=== PATIENT | male | born 1950 | race Caucasian/White ===

== ENCOUNTER 2019-02-11 14:20 | Inpatient (IN) | payer BC ==
--- NOTE | 2019-02-11 14:41 | PDOC ---
Attending Attestation - Resident Resident Name: DeborahKateryna - ED Attending Attestation I have performed the following: I have examined & evaluated the patient, The case was reviewed & discussed with the resident, I agree w/resident's findings & plan, Exceptions are as noted - HPI HPI: 02/11/19 15:09 68y M hx of copd, on methadone, POTS presenst with cough, was noted to be sob by who called EMS. EMS notes pt was hypoxic to the 70s and was started on a NRB. pt notes he has been coughing for the past few weeks productive of whitish sputum, denies any fever/chills, leg swelling, abd pain, chest pain. pt is a poor historian, says he 'triest to stay away from doctor'. Exam: GENERAL: The patient is awake, alert, and fully oriented, in moderate respiratory distress HEAD: Normocephalic, atraumatic. EYES: extraocular movements intact, sclera anicteric, conjunctiva clear. ENT: Normal voice, Moist mucous membranes. NECK: Normal range of motion, supple LUNGS: rales at l base, moderate respiratory distres, tachypneic HEART: tachycardic ABDOMEN: Soft, nontender, No guarding, no rebound. No CVA tenderness EXTREMITIES: Normal range of motion, +bl edema on LE NEUROLOGICAL: No facial assymetry, Normal speech, moving all 4 ext spontaneously and symmetrically PSYCH: Normal mood, normal affect. SKIN: Warm, Dry, normal turgor, - Physicial Exam PE: 02/13/19 08:24 see above - Critical Care Time Total Critical Care Time: 45 Critical Care Statement: The care of this patient involved high complexity decision making to prevent further life threatening deterioration of the patient 's condition and/or to evaluate & treat vital organ system(s) failure or risk of failure. - Medical Decision Making ddx - likely pna - sepsis orderset obtained 02/11/19 16:57 Patient's blood work reviewed noted for significant leukocytosis blood gases consistent with respiratory acidosis, likely secondary to COPD exacerbation with pneumonia Lactic acid also significant elevated 7.5 will give duoneb, bipap Heart Score/ECG Review - ECG Impressions Comment:: 02/11/19 18:53 Twelve-lead EKG was performed and reviewed by me. There is normal sinus rhythm with a rate of 107 Occasional PVCs noted Impression sinus tachycardia
--- NOTE | 2019-02-11 15:57 | PDOC ---
History of Present Illness - General Chief Complaint: Shortness of Breath Stated Complaint: SHORTNESS OF BREATH Time Seen by Provider: 02/11/19 14:57 - History of Present Illness Initial Comments: Serge Green is a 68yo man with a PMH of postural orthostatic tachycardia syndrome, "mild COPD" and current smoking who was BIBA with report of hypoxia to the 70's. Mr Green reports that his thought he "didn't look too good" at home and endorses having a "cold" with a cough for several weeks. He states that he always coughs in the morning, however, and does not give detailed information on how the current cough is different. He denies fever, chills, chest pain, difficulty breathing, poor appetite, change in bowel habits, or other recent symptoms. He states that he smokes "a little bit" currently. Mr Green is a poor historian and does not provide additional information; family is currently not in the ED. Past History - Past Medical History Allergies/Adverse Reactions: Allergies Allergy/AdvReac Type Severity Reaction Status Date / Time No Known Allergies Allergy Verified 02/11/19 14:54 COPD: No HTN: Yes (dysautonomia) - Psycho Social/Smoking Cessation Hx Smoking History: Never smoked Have you smoked in the past 12 months: No Information on smoking cessation initiated: No Hx Alcohol Use: No Drug/Substance Use Hx: No Review of Systems - Review of Systems Comments:: General: No fevers, no chills, no weight or appetite change, no malaise HEENT: No changes in vision, no changes in hearing, no congestion, no sore throat CV: No chest pain, no palpitations, + chronic LE edema Pulm: No SOB, + chronic cough, no wheezing GI: No nausea or vomiting, no change in bowel habits, no melena : No frequency, no urgency, no dysuria Musc: No back pain, no joint swelling, no recent injury Skin: No rash, no lesions, no erythema, +skin darkening on legs Endo: No excessive thirst, no heat/cold intolerance Heme: No unusual bruising or bleeding, no swollen glands Neuro: No syncope, no numbness/tingling, no focal weakness Vasc: No claudication Psych: No recent change in mood, no SI or HI *Physical Exam - Vital Signs Last Vital Signs Temp Pulse Resp BP Pulse Ox 97.7 F 108 H 18 97/51 L 97 02/11/19 14:25 02/11/19 14:25 02/11/19 14:25 02/11/19 14:25 02/11/19 14:25 - Physical Exam Comments: General: In moderate distress HEENT: Atraumatic, PERRL, EOMI, non-rebreather in place Cards: RRR, no murmur appreciated Pulm: Crackles in b/l lung bases. Sats in mid 80's-90's on nonrebreather. Productive cough; thick green sputum Abd: Soft, nontender, nondistended Ext: Atraumatic. 4+ BLE edema with minimal pitting. Moves all extremities Skin: BLE skin darkening c/w stasis dermatitis Neuro: Difficult to wake but alert when wakened, CN grossly intact, normal speech, motor/sensory grossly intact and symmetric Psych: Annoyed, denies any health problems ED Treatment Course - LABORATORY CBC & Chemistry Diagram: 02/11/19 15:52 02/11/19 15:52 Medical Decision Making - Medical Decision Making 02/11/19 15:56 Serge Green is a 68yo man with a PMH of postural orthostatic tachycardia syndrome, "mild COPD" and current smoking who was BIBA with report of hypoxia to the 70's. He endorses a cough but denies any other recent symptoms. - Somnolent, productive cough with thick sputum, hypoxic with sats between 80's and 90's on 10L by nonrebreather - Tachycardic initially, in 80's during exam. BP to 74/41 during exam. Given POTS diagnosis, unclear what pt's BP is at baseline. Monitor while giving IVF. Appears to be mentating normally at this time. - Sepsis workup ordered - IVF started, 1L NS initially - Abx to be ordered 02/11/19 16:33 - Pt's now at bedside. Reports pt has COPD, POTS, on methadone (since age 22). Pt has not been to see a doctor in about 5 years. Will need to confirm dose if admitted - Per outpatient med records, on Synthroid as well 02/11/19 17:13 - Labs reviewed. Multiple abnormalities including WBC 20, lactate 7.2. VBG with pH 7.24, CO2 80.4, bicarb 33. Lactate 7.2, Trop 0.44 - Additional 1L IVF, vanc, zosyn, duonebs - BiPAP for hypercarpnea - Repeat trop ordered, to be completed with repeat lactate - ICU consult - Microblog sent for admission 02/11/19 18:44 - Pt seen by med/surg team (Dr Spencer) and ICU (Dr Sung). Pt has improved clinically, now awake and alert, sats in 90's on NC - Will admit to telemetry on Dr Seay's service Discussed with Dr Alma Cabrera PGY2 Discharge - Discharge Information Problems reviewed: Yes Clinical Impression/Diagnosis: Severe sepsis Respiratory failure with hypercapnia Qualifiers: Chronicity: unspecified Qualified Code(s): J96.92 - Respiratory failure, unspecified with hypercapnia Condition: Fair - Admission Yes - Follow up/Referral - Patient Discharge Instructions - Post Discharge Activity
[2019-02-11 16:08] LABS: BASO % 0.1 % (0-2.0); HEMATOCRIT 44.1 % (35.4-49); LYMPH % 4.1 % (8-40); MCHC 34.1 g/dl (32.0-35.9); MEAN CELL VOLUME 102.7 fl (80-96); MEAN PLT VOLUME 10.4 fl (7.5-11.1); MONO % 7.2 % (3.8-10.2); NEUT % 88.6 % (42.8-82.8); PLATELET COUNT 211 K/MM3 (134-434); RBC 4.29 M/mm3 (4.00-5.60); RDW 13.4 % (11.9-15.9); WHITE BLOOD COUNT 20.1 K/mm3 (4.0-10.0)
[2019-02-11 16:43] LABS: ALBUMIN 2.5 g/dl (3.4-5.0); BILIRUBIN,TOTAL 1.4 mg/dL (0.2-1); BLOOD UREA NITROGEN 26.5 mg/dL (7-18); CALCIUM 8.4 mg/dL (8.5-10.1); CREATININE 1.2 mg/dL (0.55-1.3); POTASSIUM 4.6 mmol/L (3.5-5.1); TOT PROT 7.3 g/dl (6.4-8.2)
[2019-02-11 16:47] LABS: VENOUS PH 7.24 (7.31-7.41)
[2019-02-11 16:48] LABS: VENOUS PO2 < 49 mmHg (28-48)
[2019-02-11 16:51] LABS: VENOUS PC02 80.4 mmHg (38-52)
[2019-02-11] MEDS ORDERED: SODIUM CHLORIDE 0.9% 500 ML INFUS.BAG IV ONE (16:56)
[2019-02-11] MEDS ORDERED: PIPERACILLIN/TAZOB 4.5 GM 4.5 GM in DEXTROSE 5%-WATER 100 ML IVPB ONE (16:56)
[2019-02-11] MEDS ORDERED: ALBUTEROL SO4 2.5/IPRATROPIUM 0.5 INH SOL 3 ML VIAL.NEB. NEB ONE ×2 (16:56→17:20)
[2019-02-11] MEDS ORDERED: VANCOMYCIN 1 GM in D5W (PRE-DOCKED) 1,000 MG/250 ML IVPB ONE (16:57)
[2019-02-11 17:20] LABS: EPI CELLS 2.9 /HPF (0-5/HPF); HYALINE CASTS 4 /lpf (0-8); PH,URINE 5.5 (5.0-8.0); URINE APPEARANCE CLEAR; URINE BACTERIA 1.7 /hpf (NEGATIVE); URINE BILIRUBIN 1+ (NEGATIVE); URINE COLOR DK YELLOW; URINE GLUCOSE (UA) NEGATIVE (NEGATIVE); URINE KETONE NEGATIVE (NEGATIVE); URINE LEUK ESTERASE TRACE (NEGATIVE); URINE NITRITE NEGATIVE (NEGATIVE); URINE PROTEIN 2+ (NEGATIVE); URINE RBC 3 /hpf (0-4); URINE WBC 1 /hpf (0-5)
[2019-02-11] MEDS ORDERED: VANCOMYCIN 1 GRAM (PRE-DOCKED) 1,000 MG/250 ML BAG IVPB ONE (17:20)
[2019-02-11 18:10] LABS: INR 1.64 (0.83-1.09); PROTHROMBIN TIME (PATIENT) 19.4 SEC (9.7-13.0)
[2019-02-11 18:13] LABS: ACTIVATED PTT 31.2 SECONDS (25.2-36.5)
--- NOTE | 2019-02-11 18:16 | CONSULT ---
Consultation: REQUESTING PROVIDER: CONSULT REQUEST: ICU HISTORY OF PRESENT ILLNESS: Serge Green is a 68yM w PMHx POTS, COPD, hypothyroidism, opioid use disorder ( on suboxone) presenting with cough and lethargy. Has had productive cough and progressive worsening BLE swelling for past 2 weeks. Reduced activity, poor appetite, reduced energy for past week. Denies fever, SOB, chest/AB pain, urinary/bowel mvmt changes. REVIEW OF SYSTEMS: CONSTITUTIONAL: + generalized weakness, malaise, reduced appetite Absent: fever, chills HEENT: + cough, Absent: rhinorrhea, nasal congestion, throat pain, throat swelling, difficulty swallowing, mouth swelling, ear pain, eye pain, visual changes CARDIOVASCULAR: + peripheral edema Absent: chest pain, syncope, palpitations RESPIRATORY: + cough Absent: shortness of breath, dyspnea with exertion,wheezing GASTROINTESTINAL: Absent: abdominal pain, abdominal distension, nausea, vomiting, diarrhea, constipation GENITOURINARY: Absent: dysuria, frequency, urgency, hesitancy MUSCULOSKELETAL: Absent: myalgia, arthralgia SKIN: Absent: rash, itching HEMATOLOGIC/IMMUNOLOGIC: Absent: easy bleeding, easy bruising ENDOCRINE: Absent: unexplained weight gain, unexplained weight loss NEUROLOGIC: Absent: headache, dizziness, seizure PSYCHIATRIC: Absent: anxiety, depression PHYSICAL EXAMINATION Vital Signs - 24 hr 02/11/19 14:25 Temperature 97.7 F Pulse Rate 108 H Respiratory 18 Rate Blood Pressure 97/51 L O2 Sat by Pulse 97 Oximetry (%) GENERAL: Awake, alert, and fully oriented. HEAD: Normal with no signs of trauma. EYES: Pupils equal, round and reactive to light, conjunctiva clear. No lid lag. NECK: Normal range of motion, supple without lymphadenopathy, JVD, or masses. LUNGS: Reduced breath sounds agustin. No wheezes, and no crackles. No accessory muscle use. HEART: Regular rate and rhythm, normal S1 and S2. Systolic murmur. ABDOMEN: Soft, nontender, not distended, normoactive bowel sounds, no guarding, no rebound, no masses. No hepatomegaly or splenomegaly. UPPER EXTREMITIES: Cap refill <2 seconds. LOWER EXTREMITIES: 3+ pitting edema BLE. Warm NEUROLOGICAL: AOx3. Normal speech. Laboratory Results - last 24 hr 02/11/19 02/11/19 02/11/19 15:52 15:52 15:52 WBC 20.1 H RBC 4.29 Hgb 15.0 Hct 44.1 MCV 102.7 H MCH 35.0 H MCHC 34.1 RDW 13.4 Plt Count 211 MPV 10.4 Absolute Neuts (auto) 17.8 H Neutrophils % 88.6 H Lymphocytes % 4.1 L Monocytes % 7.2 Eosinophils % 0.0 Basophils % 0.1 Nucleated RBC % 0 PT with INR INR VBG pH POC VBG pCO2 POC VBG pO2 VBG HCO3 VBG O2 Sat ([place]) VBG Base Excess Sodium 138 Potassium 4.6 Chloride 93 L Carbon Dioxide 34 H Anion Gap 11 BUN 26.5 H Creatinine 1.2 Est GFR (CKD-EPI)AfAm 70.58 Est GFR (CKD-EPI)NonAf 60.90 Random Glucose 96 Lactic Acid 7.2 H* Calcium 8.4 L Total Bilirubin 1.4 H AST 73 H ALT 29 Alkaline Phosphatase 100 Troponin I 0.44 H Total Protein 7.3 Albumin 2.5 L Urine Color Urine Appearance Urine pH Ur Specific [place] Urine Protein Urine Glucose (UA) Urine Ketones Urine Blood Urine Nitrite Urine Bilirubin Urine Urobilinogen Ur Leukocyte Esterase Urine WBC (Auto) Urine RBC (Auto) Urine Casts (Auto) U Epithel Cells (Auto) Urine Bacteria (Auto) 02/11/19 02/11/19 02/11/19 15:52 16:34 17:30 WBC RBC Hgb Hct MCV MCH MCHC RDW Plt Count MPV Absolute Neuts (auto) Neutrophils % Lymphocytes % Monocytes % Eosinophils % Basophils % Nucleated RBC % PT with INR 19.40 H INR 1.64 H VBG pH 7.24 L POC VBG pCO2 80.4 H* POC VBG pO2 < 49 H VBG HCO3 33.3 H VBG O2 Sat ([place]) 37.6 L VBG Base Excess 2.9 H Sodium Potassium Chloride Carbon Dioxide Anion Gap BUN Creatinine Est GFR (CKD-EPI)AfAm Est GFR (CKD-EPI)NonAf Random Glucose Lactic Acid Calcium Total Bilirubin AST ALT Alkaline Phosphatase Troponin I Total Protein Albumin Urine Color Dk yellow Urine Appearance Clear Urine pH 5.5 Ur Specific [place] 1.025 Urine Protein 2+ H Urine Glucose (UA) Negative Urine Ketones Negative Urine Blood Negative Urine Nitrite Negative Urine Bilirubin 1+ H Urine Urobilinogen 2.0 Ur Leukocyte Esterase Trace Urine WBC (Auto) 1 Urine RBC (Auto) 3 Urine Casts (Auto) 4 U Epithel Cells (Auto) 2.9 Urine Bacteria (Auto) 1.7 ASSESSMENT/PLAN: Serge Green is a 68yM w PMHx POTS, COPD, hypothyroidism, opioid use disorder ( on suboxone) presenting with cough and lethargy. #Acute hypoxic respiratory failure #COPD exacerbation #sepsis #elevated trop #leukocytosis #lactic acidosis - IV antibiotics - IV fluids - trend troponin - trend lactate - echo to evaluate heart function with systolic murmur, worsening BLE edema - supplemental O2 - f/u CT scan - keep O2>88% - standing duonebs, albuterol PRN - follow blood/urine/sputum cx - AM CXR, ABG Dispo: Pt does not need ICU admission. Please contact if pt status deteriorates. Thank you for the consult Visit type - Emergency Visit Emergency Visit: Yes ED Registration Date: 02/11/19 Care time: The patient presented to the Emergency Department on the above date and was hospitalized for further evaluation of their emergent condition. - New Patient This patient is new to me today: Yes Date on this admission: 02/11/19 - Critical Care Critical Care patient: Yes Total Critical Care Time (in minutes): 36 Critical Care Statement: The care of this patient involved high complexity decision making to prevent further life threatening deterioration of the patient 's condition and/or to evaluate & treat vital organ system(s) failure or risk of failure. ATTENDING PHYSICIAN STATEMENT I saw and evaluated the patient. I reviewed the resident's note and discussed the case with the resident. I agree with the resident's findings and plan as documented. SUBJECTIVE: OBJECTIVE: ASSESSMENT AND PLAN:
--- NOTE | 2019-02-11 18:24 | HP ---
CHIEF COMPLAINT: Altered status; respiratory distress PCP: Dr. Low (hasn't seen since 2017) HISTORY OF PRESENT ILLNESS: 68M with h/o of ?autonomic dysfunction, COPD, suspected underlying heart disease and heart failure who presents today with his for altered mentation and respiratory distress. 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 Pt's noted today that he was less than arousable with altered mentation and called ambulance. Upon arrival pt was noted to be hypoxic to 77% and was brought immediately to the ER. Pt upon arrival again had only arousal to noxious stimuli and during his workup pt was found to have multifocal pneumonia and hypercapnea. Pt was initiated on antibiotic therapy and NIPPV. Pt at time of exam is awake and oriented, however remains poor medical review specialist. at bedside provides most of history. 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 In addition he has not seen Dr. Low since 2017 and has only been compliant with picking up his Suboxone prescription from his clinic. PAST MEDICAL HISTORY: As above PAST SURGICAL HISTORY: No cardiac stents Otherwise pt unable to remember Social History: Smoking: Current smoker; differing stories of last cigarette from and from patient Alcohol: None Drugs: None Allergies No Known Allergies Allergy (Verified 02/11/19 14:54) HOME MEDICATIONS: REVIEW OF SYSTEMS As per HPI PHYSICAL EXAMINATION Vital Signs - 24 hr 02/11/19 14:25 Temperature 97.7 F Pulse Rate 108 H Respiratory 18 Rate Blood Pressure 97/51 L O2 Sat by Pulse 97 Oximetry (%) GENERAL: NAD, Awake, alert, and fully oriented HEENT: NC/AT, AMAYA, sclera anicteric, dry mucosa NECK: No JVD LUNGS: Distant breath sounds. Rhoncherous breath sounds bilaterally. No wheezes. No accessory muscle use. 3LNC 92-94% HEART: RRR, normal S1 and S2 with 3/6 systolic murmur at apex ABDOMEN: Soft, NT/ND, normoactive bowel sounds, no guarding, no rebound, hepatojugular reflux + EXTREMITIES: 2+ pulses distally b/l, warm, well-perfused. R calf tenderness. 2+ pitting edema without weeping up to knee b/l PSYCHIATRIC: Cooperative. Good eye contact. Appropriate mood and affect. SKIN: Warm, dry, normal turgor, no rashes or lesions noted, normal capillary refill. Laboratory Results - last 24 hr 02/11/19 02/11/19 02/11/19 15:52 15:52 15:52 WBC 20.1 H RBC 4.29 Hgb 15.0 Hct 44.1 MCV 102.7 H MCH 35.0 H MCHC 34.1 RDW 13.4 Plt Count 211 MPV 10.4 Absolute Neuts (auto) 17.8 H Neutrophils % 88.6 H Lymphocytes % 4.1 L Monocytes % 7.2 Eosinophils % 0.0 Basophils % 0.1 Nucleated RBC % 0 PT with INR INR PTT (Actin FS) VBG pH POC VBG pCO2 POC VBG pO2 VBG HCO3 VBG O2 Sat ([place]) VBG Base Excess Sodium 138 Potassium 4.6 Chloride 93 L Carbon Dioxide 34 H Anion Gap 11 BUN 26.5 H Creatinine 1.2 Est GFR (CKD-EPI)AfAm 70.58 Est GFR (CKD-EPI)NonAf 60.90 Random Glucose 96 Lactic Acid 7.2 H* Calcium 8.4 L Total Bilirubin 1.4 H AST 73 H ALT 29 Alkaline Phosphatase 100 Troponin I 0.44 H Total Protein 7.3 Albumin 2.5 L Urine Color Urine Appearance Urine pH Ur Specific [place] Urine Protein Urine Glucose (UA) Urine Ketones Urine Blood Urine Nitrite Urine Bilirubin Urine Urobilinogen Ur Leukocyte Esterase Urine WBC (Auto) Urine RBC (Auto) Urine Casts (Auto) U Epithel Cells (Auto) Urine Bacteria (Auto) 02/11/19 02/11/19 02/11/19 15:52 16:34 17:30 WBC RBC Hgb Hct MCV MCH MCHC RDW Plt Count MPV Absolute Neuts (auto) Neutrophils % Lymphocytes % Monocytes % Eosinophils % Basophils % Nucleated RBC % PT with INR 19.40 H INR 1.64 H PTT (Actin FS) 31.2 VBG pH 7.24 L POC VBG pCO2 80.4 H* POC VBG pO2 < 49 H VBG HCO3 33.3 H VBG O2 Sat ([place]) 37.6 L VBG Base Excess 2.9 H Sodium Potassium Chloride Carbon Dioxide Anion Gap BUN Creatinine Est GFR (CKD-EPI)AfAm Est GFR (CKD-EPI)NonAf Random Glucose Lactic Acid Calcium Total Bilirubin AST ALT Alkaline Phosphatase Troponin I Total Protein Albumin Urine Color Dk yellow Urine Appearance Clear Urine pH 5.5 Ur Specific [place] 1.025 Urine Protein 2+ H Urine Glucose (UA) Negative Urine Ketones Negative Urine Blood Negative Urine Nitrite Negative Urine Bilirubin 1+ H Urine Urobilinogen 2.0 Ur Leukocyte Esterase Trace Urine WBC (Auto) 1 Urine RBC (Auto) 3 Urine Casts (Auto) 4 U Epithel Cells (Auto) 2.9 Urine Bacteria (Auto) 1.7 ASSESSMENT/PLAN: Severe sepsis 2/2 Multifocal pneumonia Acute hypercapenic hypoxic respiratory distress Lactic acidosis Mixed metabolic and respiratory acidosis Troponinemia Hyperbilirubinemia Opioid Use Disorder Macrocytosis Hypothyroidism History of COPD --Acute respiratory failure likely 2/2 to multiple components: COPD exacerbation and Multifocal pneumonia --Obtain CT Chest as CXR borderline --Sputum culture; Blood Cx, Urine Cx --Continue Zosyn 3.375 q8h IVPB for now --ID consulted --Trend lactic acid: likely predominantly Type A with potential Type B due to hilar lymphadenopathy on CXR --IVF: Low vol. boluses PRN due to likely underlying CAD/heart failure --Echocardiogram ordered --Maintain BiPap and repeat ABG 1 hr after --Titrate settings to maintain SPO2 >88% and 7.35 pH --Duoneb QID scheduled with Albuterol PRN --Can likely transition to Spiriva + Symbicort high dose by end of hospital stay --Will hold off on empiric steroids currently due to lack of wheezing noted on PE --Will continue Synthroid 150mcg qdaily as in previous external medical history --Trend Troponin --Load ASA 162mg once due to likely underlying CAD --Anticipate this may be demand --ECG findings without significant evidence of overt ischemia/[place] --Vascular duplex b/l legs due to calf tenderness on exam on R --Pt is difficult to manage due to lack of medical history provided by him/ and lack of medical care --Labs ordered: A1c, B12, Folate, TSH, Free T4, Fractionate Bilirubin --RUQ ordered due to notable partial CBD dilation noted on CT scan --Trend LFTs --Possible MRCP vs. HIDA pending results of RUQ --Unable to confirm Suboxone at this time, but need to do so in AM: [facility] FEN: Fluids: Low volume bolus as needed Electroltye abnormalities: none Nutrition: NPO while on BiPap and tenuous respiratory status PPX: DVT - Heparin TID GI - Not indicated Dispo: Telemetry vs. ICU placement; consultation for ICU placed Case discussed with ICU team and ER team Bridger Spencer DO - IM PGY-3 Visit type - Emergency Visit Emergency Visit: Yes ED Registration Date: 02/11/19 Care time: The patient presented to the Emergency Department on the above date and was hospitalized for further evaluation of their emergent condition. - New Patient This patient is new to me today: Yes Date on this admission: 02/11/19 - Critical Care Critical Care patient: No ATTENDING PHYSICIAN STATEMENT I saw and evaluated the patient. I reviewed the resident's note and discussed the case with the resident. I agree with the resident's findings and plan as documented. SUBJECTIVE: OBJECTIVE: ASSESSMENT AND PLAN:
[2019-02-11] MEDS ORDERED: PIPERACILLIN/TAZOB 4.5 GM 4.5 GM/100 ML BAG IVPB ONE (18:51)
[2019-02-11] MEDS ORDERED: ALBUTEROL SO4 0.083% IH SOL 2.5 MG/3 ML VIAL.NEB. NEB PRN (18:58)
[2019-02-11] MEDS ORDERED: ACETAMINOPHEN 1000 MG/100 ML VIAL (NON FORMULARY) IVPB PRN (18:58)
[2019-02-11] MEDS: ALBUTEROL SO4 2.5/IPRATROPIUM 0.5 INH SOL 3 ML VIAL.NEB. NEB SCH (19:55)
[2019-02-11 20:55] LABS: MACROCYTOSIS 1+; PLATELET ESTIMATE ADEQUATE
[2019-02-11] MEDS ORDERED: ASPIRIN 81 MG CHEWABLE TABLETS PO ONE (21:10)
[2019-02-11 21:38] LABS: ARTERIAL BLD GAS O2 SATURATION 91.9 % (95-98); ARTERIAL BLOOD GAS BASE EXCESS 5.9 meq/l (-2-2); ARTERIAL BLOOD GAS PCO2 47.8 mmHg (35-45); ARTERIAL BLOOD GAS PO2 67.1 mmHg (80-100); ARTERIAL BLOOD GAS pH 7.43 (7.35-7.45)
[2019-02-12] MEDS ORDERED: PIPERACILLIN/TAZOB 3.375 GM 3.375 GM in DEXTROSE 5%-WATER - 50 ML IVPB SCH (02:00)
[2019-02-12] MEDS ORDERED: HEPARIN NA (PORCINE) 5,000 UNITS/ML 1ML VIAL IVPUSH PRN ×4 (03:04→03:15)
--- NOTE | 2019-02-12 03:07 | PN ---
Progress Note (short form) - Note Progress Note: Pt's repeat troponin trended upward 0.44 --> 0.7 --> 0.79. Started on heparin drip and ordered stat EKG.
[2019-02-12] MEDS ORDERED: HEPARIN - 25,000 UNIT in SODIUM CHLORIDE 495 ML IV SCH (03:15)
[2019-02-12] MEDS ORDERED: PIPERACILLIN/TAZOBACTAM 3.375 GM VIAL IVPB ONE (03:47)
[2019-02-12] MEDS ORDERED: DEXTROSE 5%-WATER - 50 ML IVPB ONE (03:48)
[2019-02-12] MEDS: HEPARIN INFUSION - 25,000 UNITS/500 ML INFUS.BAG IVPB SCH ×2 (04:00→10:00)
[2019-02-12] MEDS ORDERED: HEPARIN NA (PORCINE) 5,000 UNITS/ML 1ML VIAL SQ SCH (06:00)
[2019-02-12 06:40] LABS: ARTERIAL BLD GAS O2 SATURATION 88.2 % (95-98); ARTERIAL BLOOD GAS BASE EXCESS 7.9 meq/l (-2-2); ARTERIAL BLOOD GAS PCO2 50.5 mmHg (35-45); ARTERIAL BLOOD GAS PO2 57.9 mmHg (80-100); ARTERIAL BLOOD GAS pH 7.43 (7.35-7.45)
[2019-02-12] MEDS ORDERED: LEVOTHYROXINE NA 150 MCG TABLET PO SCH (07:00)
[2019-02-12 07:23] LABS: ALLENS TEST POSITIVE
[2019-02-12 07:39] LABS: BASO % 0.2 % (0-2.0); EOS % 0.2 % (0-4.5); HEMATOCRIT 37.7 % (35.4-49); HEMOGLOBIN 12.6 GM/dL (11.7-16.9); LYMPH % 16.3 % (8-40); MCH 33.8 pg (25.7-33.7); MCHC 33.3 g/dl (32.0-35.9); MEAN CELL VOLUME 101.7 fl (80-96); MONO % 9.1 % (3.8-10.2); NEUT % 74.2 % (42.8-82.8); PLATELET COUNT 202 K/MM3 (134-434); RBC 3.71 M/mm3 (4.00-5.60); RDW 13.5 % (11.9-15.9); WHITE BLOOD COUNT 15.5 K/mm3 (4.0-10.0)
[2019-02-12] MEDS: ALBUTEROL SO4 2.5/IPRATROPIUM 0.5 INH SOL 3 ML VIAL.NEB. NEB SCH ×4 (08:09→20:30)
[2019-02-12 08:11] LABS: BILIRUBIN,TOTAL 0.9 mg/dL (0.2-1); BLOOD UREA NITROGEN 28.8 mg/dL (7-18); CALCIUM 7.3 mg/dL (8.5-10.1); CREATININE 0.8 mg/dL (0.55-1.3); PHOSPHOROUS 2.8 mg/dL (2.5-4.9); POTASSIUM 3.8 mmol/L (3.5-5.1); TOT PROT 5.6 g/dl (6.4-8.2)
--- NOTE | 2019-02-12 08:14 | PN ---
Physical Exam: SUBJECTIVE: Patient seen and examined; events reviewed. Altered. STAT EKG ordered; 10 sys ROS done and negative aside from HPI OBJECTIVE: Vital Signs Period Temp Pulse Resp BP Sys/Bashir Pulse Ox Last 24 Hr 97.5 F-98.5 F 59-119 02-03 77-125/51-86 91-100 GENERAL: The patient is awake, alert, and fully oriented, in no acute distress. HEAD: Normal with no signs of trauma. EYES: PERRL, extraocular movements intact, sclera anicteric, conjunctiva clear. No ptosis. ENT: Ears normal, nares patent, oropharynx clear without exudates, moist mucous membranes. NECK: Trachea midline, full range of motion, supple. LUNGS: Breath sounds equal, clear to auscultation bilaterally, no wheezes, no crackles, no accessory muscle use. HEART: Regular rate and rhythm, S1, S2 without murmur, rub or gallop. ABDOMEN: Soft, nontender, nondistended, normoactive bowel sounds, no guarding, no rebound, no hepatosplenomegaly, no masses. EXTREMITIES: 2+ pulses, warm, well-perfused, no edema. NEUROLOGICAL: Cranial nerves II through XII grossly intact. Normal speech, gait not observed. PSYCH: Normal mood, normal affect. SKIN: Warm, dry, normal turgor, no rashes or lesions noted Laboratory Results - last 24 hr 02/11/19 02/11/19 02/11/19 15:52 15:52 15:52 WBC 20.1 H RBC 4.29 Hgb 15.0 Hct 44.1 MCV 102.7 H MCH 35.0 H MCHC 34.1 RDW 13.4 Plt Count 211 MPV 10.4 Absolute Neuts (auto) 17.8 H Total Counted 100 Neutrophils % 88.6 H Neutrophils % (Manual) 87.0 H Band Neutrophils % 2.0 Lymphocytes % 4.1 L Lymphocytes % (Manual) 4.0 L Monocytes % 7.2 Monocytes % (Manual) 6 Eosinophils % 0.0 Basophils % 0.1 Myelocytes % (Man) 1 Nucleated RBC % 0 Differential Comment Man diff performed Platelet Estimate Adequate Platelet Comment Giant platelets Polychromasia 1+ Macrocytosis 1+ ESR PT with INR INR PTT (Actin FS) Anticoagulation Therapy Puncture Site ABG pH ABG pCO2 at Pt Temp ABG pO2 at Pt Temp ABG HCO3 ABG O2 Sat (Measured) ABG O2 Content ABG Base Excess Bandar Test VBG pH POC VBG pCO2 POC VBG pO2 VBG HCO3 VBG O2 Sat ([place]) VBG Base Excess O2 Delivery Device Oxygen Flow Rate Vent Mode Vent Rate Mechanical Rate Pressure Support Vent Sodium 138 Potassium 4.6 Chloride 93 L Carbon Dioxide 34 H Anion Gap 11 BUN 26.5 H Creatinine 1.2 Est GFR (CKD-EPI)AfAm 70.58 Est GFR (CKD-EPI)NonAf 60.90 Random Glucose 96 Lactic Acid 7.2 H* Calcium 8.4 L Total Bilirubin 1.4 H AST 73 H ALT 29 Alkaline Phosphatase 100 Troponin I 0.44 H C-Reactive Protein Total Protein 7.3 Albumin 2.5 L Urine Color Urine Appearance Urine pH Ur Specific [place] Urine Protein Urine Glucose (UA) Urine Ketones Urine Blood Urine Nitrite Urine Bilirubin Urine Urobilinogen Ur Leukocyte Esterase Urine WBC (Auto) Urine RBC (Auto) Urine Casts (Auto) U Epithel Cells (Auto) Urine Bacteria (Auto) Influenza A (Rapid) Influenza B (Rapid) RSV Rapid 02/11/19 02/11/19 02/11/19 15:52 16:34 17:30 WBC RBC Hgb Hct MCV MCH MCHC RDW Plt Count MPV Absolute Neuts (auto) Total Counted Neutrophils % Neutrophils % (Manual) Band Neutrophils % Lymphocytes % Lymphocytes % (Manual) Monocytes % Monocytes % (Manual) Eosinophils % Basophils % Myelocytes % (Man) Nucleated RBC % Differential Comment Platelet Estimate Platelet Comment Polychromasia Macrocytosis ESR PT with INR 19.40 H INR 1.64 H PTT (Actin FS) 31.2 Anticoagulation Therapy Puncture Site ABG pH ABG pCO2 at Pt Temp ABG pO2 at Pt Temp ABG HCO3 ABG O2 Sat (Measured) ABG O2 Content ABG Base Excess Bandar Test VBG pH 7.24 L POC VBG pCO2 80.4 H* POC VBG pO2 < 49 H VBG HCO3 33.3 H VBG O2 Sat ([place]) 37.6 L VBG Base Excess 2.9 H O2 Delivery Device Oxygen Flow Rate Vent Mode Vent Rate Mechanical Rate Pressure Support Vent Sodium Potassium Chloride Carbon Dioxide Anion Gap BUN Creatinine Est GFR (CKD-EPI)AfAm Est GFR (CKD-EPI)NonAf Random Glucose Lactic Acid Calcium Total Bilirubin AST ALT Alkaline Phosphatase Troponin I C-Reactive Protein Total Protein Albumin Urine Color Dk yellow Urine Appearance Clear Urine pH 5.5 Ur Specific [place] 1.025 Urine Protein 2+ H Urine Glucose (UA) Negative Urine Ketones Negative Urine Blood Negative Urine Nitrite Negative Urine Bilirubin 1+ H Urine Urobilinogen 2.0 Ur Leukocyte Esterase Trace Urine WBC (Auto) 1 Urine RBC (Auto) 3 Urine Casts (Auto) 4 U Epithel Cells (Auto) 2.9 Urine Bacteria (Auto) 1.7 Influenza A (Rapid) Influenza B (Rapid) RSV Rapid 02/11/19 02/11/19 02/11/19 18:20 18:20 21:15 WBC RBC Hgb Hct MCV MCH MCHC RDW Plt Count MPV Absolute Neuts (auto) Total Counted Neutrophils % Neutrophils % (Manual) Band Neutrophils % Lymphocytes % Lymphocytes % (Manual) Monocytes % Monocytes % (Manual) Eosinophils % Basophils % Myelocytes % (Man) Nucleated RBC % Differential Comment Platelet Estimate Platelet Comment Polychromasia Macrocytosis ESR PT with INR INR PTT (Actin FS) Anticoagulation Therapy No Result Required. Puncture Site Right brachial ABG pH 7.43 ABG pCO2 at Pt Temp 47.8 H ABG pO2 at Pt Temp 67.1 L ABG HCO3 30.9 H ABG O2 Sat (Measured) 91.9 L ABG O2 Content 17.6 ABG Base Excess 5.9 H Bandar Test No Result Required. VBG pH POC VBG pCO2 POC VBG pO2 VBG HCO3 VBG O2 Sat ([place]) VBG Base Excess O2 Delivery Device N/c Oxygen Flow Rate 3lpm Vent Mode No Result Required. Vent Rate No Result Required. Mechanical Rate No Result Required. Pressure Support Vent No Result Required. Sodium Potassium Chloride Carbon Dioxide Anion Gap BUN Creatinine Est GFR (CKD-EPI)AfAm Est GFR (CKD-EPI)NonAf Random Glucose Lactic Acid 4.7 H* Calcium Total Bilirubin AST ALT Alkaline Phosphatase Troponin I 0.70 H* C-Reactive Protein Total Protein Albumin Urine Color Urine Appearance Urine pH Ur Specific [place] Urine Protein Urine Glucose (UA) Urine Ketones Urine Blood Urine Nitrite Urine Bilirubin Urine Urobilinogen Ur Leukocyte Esterase Urine WBC (Auto) Urine RBC (Auto) Urine Casts (Auto) U Epithel Cells (Auto) Urine Bacteria (Auto) Influenza A (Rapid) Influenza B (Rapid) RSV Rapid 02/12/19 02/12/19 02/12/19 00:00 00:00 00:00 WBC RBC Hgb Hct MCV MCH MCHC RDW Plt Count MPV Absolute Neuts (auto) Total Counted Neutrophils % Neutrophils % (Manual) Band Neutrophils % Lymphocytes % Lymphocytes % (Manual) Monocytes % Monocytes % (Manual) Eosinophils % Basophils % Myelocytes % (Man) Nucleated RBC % Differential Comment Platelet Estimate Platelet Comment Polychromasia Macrocytosis ESR PT with INR INR PTT (Actin FS) Anticoagulation Therapy Puncture Site ABG pH ABG pCO2 at Pt Temp ABG pO2 at Pt Temp ABG HCO3 ABG O2 Sat (Measured) ABG O2 Content ABG Base Excess Bandar Test VBG pH POC VBG pCO2 POC VBG pO2 VBG HCO3 VBG O2 Sat ([place]) VBG Base Excess O2 Delivery Device Oxygen Flow Rate Vent Mode Vent Rate Mechanical Rate Pressure Support Vent Sodium Potassium Chloride Carbon Dioxide Anion Gap BUN Creatinine Est GFR (CKD-EPI)AfAm Est GFR (CKD-EPI)NonAf Random Glucose Lactic Acid 2.0 Calcium Total Bilirubin AST ALT Alkaline Phosphatase Troponin I 0.79 H* C-Reactive Protein 5.0 H Total Protein Albumin Urine Color Urine Appearance Urine pH Ur Specific [place] Urine Protein Urine Glucose (UA) Urine Ketones Urine Blood Urine Nitrite Urine Bilirubin Urine Urobilinogen Ur Leukocyte Esterase Urine WBC (Auto) Urine RBC (Auto) Urine Casts (Auto) U Epithel Cells (Auto) Urine Bacteria (Auto) Influenza A (Rapid) Influenza B (Rapid) RSV Rapid Negative 02/12/19 02/12/19 02/12/19 00:00 00:00 00:00 WBC RBC Hgb Hct MCV MCH MCHC RDW Plt Count MPV Absolute Neuts (auto) Total Counted Neutrophils % Neutrophils % (Manual) Band Neutrophils % Lymphocytes % Lymphocytes % (Manual) Monocytes % Monocytes % (Manual) Eosinophils % Basophils % Myelocytes % (Man) Nucleated RBC % Differential Comment Platelet Estimate Platelet Comment Polychromasia Macrocytosis ESR 25 H PT with INR INR PTT (Actin FS) Anticoagulation Therapy Puncture Site ABG pH ABG pCO2 at Pt Temp ABG pO2 at Pt Temp ABG HCO3 ABG O2 Sat (Measured) ABG O2 Content ABG Base Excess Bandar Test VBG pH POC VBG pCO2 POC VBG pO2 VBG HCO3 VBG O2 Sat ([place]) VBG Base Excess O2 Delivery Device Oxygen Flow Rate Vent Mode Vent Rate Mechanical Rate Pressure Support Vent Sodium Potassium Chloride Carbon Dioxide Anion Gap BUN Creatinine Est GFR (CKD-EPI)AfAm Est GFR (CKD-EPI)NonAf Random Glucose Lactic Acid Calcium Total Bilirubin AST ALT Alkaline Phosphatase Troponin I C-Reactive Protein Cancelled Total Protein Albumin Urine Color Urine Appearance Urine pH Ur Specific [place] Urine Protein Urine Glucose (UA) Urine Ketones Urine Blood Urine Nitrite Urine Bilirubin Urine Urobilinogen Ur Leukocyte Esterase Urine WBC (Auto) Urine RBC (Auto) Urine Casts (Auto) U Epithel Cells (Auto) Urine Bacteria (Auto) Influenza A (Rapid) Negative Influenza B (Rapid) Negative RSV Rapid 02/12/19 02/12/19 05:15 06:20 WBC 15.5 H RBC 3.71 L Hgb 12.6 Hct 37.7 MCV 101.7 H MCH 33.8 H MCHC 33.3 RDW 13.5 Plt Count 202 MPV 10.0 Absolute Neuts (auto) 11.5 H Total Counted Neutrophils % 74.2 Neutrophils % (Manual) Band Neutrophils % Lymphocytes % 16.3 D Lymphocytes % (Manual) Monocytes % 9.1 Monocytes % (Manual) Eosinophils % 0.2 D Basophils % 0.2 Myelocytes % (Man) Nucleated RBC % 0 Differential Comment Platelet Estimate Platelet Comment Polychromasia Macrocytosis ESR PT with INR INR PTT (Actin FS) Anticoagulation Therapy No Result Required. Puncture Site Right brachial ABG pH 7.43 ABG pCO2 at Pt Temp 50.5 H ABG pO2 at Pt Temp 57.9 L ABG HCO3 33.1 H ABG O2 Sat (Measured) 88.2 L ABG O2 Content 15.9 ABG Base Excess 7.9 H Bandar Test Positive VBG pH POC VBG pCO2 POC VBG pO2 VBG HCO3 VBG O2 Sat ([place]) VBG Base Excess O2 Delivery Device N/c Oxygen Flow Rate 3lpm Vent Mode No Result Required. Vent Rate No Result Required. Mechanical Rate No Result Required. Pressure Support Vent No Result Required. Sodium Potassium Chloride Carbon Dioxide Anion Gap BUN Creatinine Est GFR (CKD-EPI)AfAm Est GFR (CKD-EPI)NonAf Random Glucose Lactic Acid Calcium Total Bilirubin AST ALT Alkaline Phosphatase Troponin I C-Reactive Protein Total Protein Albumin Urine Color Urine Appearance Urine pH Ur Specific [place] Urine Protein Urine Glucose (UA) Urine Ketones Urine Blood Urine Nitrite Urine Bilirubin Urine Urobilinogen Ur Leukocyte Esterase Urine WBC (Auto) Urine RBC (Auto) Urine Casts (Auto) U Epithel Cells (Auto) Urine Bacteria (Auto) Influenza A (Rapid) Influenza B (Rapid) RSV Rapid Active Medications Generic Name Dose Route Start Last Admin Trade Name Freq PRN Reason Stop Dose Admin Acetaminophen 1,000 mg 02/11/19 18:58 Ofirmev Injection - IVPB Q6H PRN FEVER Albuterol Sulfate 1 amp 02/11/19 18:58 Ventolin 0.083% Nebulizer Soln - NEB Q4H PRN SHORT OF BREATH/WHEEZING Albuterol/Ipratropium 1 amp 02/11/19 20:00 02/11/19 19:55 Duoneb - NEB Not Given RQID THERESA Heparin Sodium (Porcine) 1,000 unit 02/12/19 03:15 Heparin - IVPUSH PRN PRN Heparin Heparin Sodium (Porcine) 5,000 unit 02/12/19 03:15 Heparin - IVPUSH PRN PRN Heparin Piperacillin Sod/Tazobactam 50 mls @ 100 mls/hr 02/12/19 02:00 Sod 3.375 gm/ Dextrose IVPB Q8H-IV THERESA Protocol Heparin Sodium/Dextrose 25,000 units in 500 mls @ 20 mls/hr 02/12/19 03:15 04:00 Heparin Infusion - IVPB 1,000 units/hr TITR THERESA 20 mls/hr Administration Protocol 1,000 UNITS/HR Levothyroxine Sodium 150 mcg 02/12/19 07:00 02/12/19 06:19 Synthroid - PO 150 mcg DAILY@0700 [facility] Administration ASSESSMENT/PLAN: Patient presents for multiple severe issues; low threshold to upgrade level of care. -Altered Mental Status secondary to likely toxic metabolic encephalopathy, r/o acute neuro event *Followup ammonia, followup neuroimaging. If no clear cause or interval worsening consult neurology. Neuro checks and seizure precautions ordered. -NSTEMI *I saw a EKG was ordered by the night team but it was never followed up on in the documentation. Not yet uploaded and will find and review on floor. Repeat troponin, STAT EKG, and followup cardiology consult. Followup echo. Further cardiac diagnostics per their service. Started on heparin drip last night; will DC if no evolving changes. Adding asa and statin. Monitor telemetry. Discussed with Dr. Israel. Severe sepsis 2/2 Multifocal pneumonia, r/o aspiration component -Acute Mixed Respiratory Failure secondary to PNA/COPD *Check BNP to r/o element of CHF, FU echo, PRN O2 and NPO until swallow study to r/o aspiration given AMS. -Lactic acidosis -Downtrended -History of POTS *Cardiology consulted, monitor on tele -R/O Cirrhosis *Low albumin, elevated INR, macrocytosis and substance hx +. High bili noted with elevated AST. Monitor for s/s/ EtOH WD -Mixed metabolic and respiratory acidosis -FU blood gas -Opioid Use Disorder -Macrocytosis without anemia -Likely Hyperthyroidism; consulting Dr. Calvillo -Hypothyroidism hx; holding synthroid. -Morbid Obesity -R/O Obstructive Sleep Apnea +/- Pickwickian Syndrome -Hypoalbuminemia *Check prealbumin; consider underlying cirrhosis -Elevated QTc on Methadone *Hold methadone; PRN dilaudid. Recheck QTc in AM. Consider Pain Management consult. Trend mg. -Dilated CBD 1.3CM with hyperbilirubinemia *GI consult and MRCP Full Code Visit type - Emergency Visit Emergency Visit: No - New Patient This patient is new to me today: No - Critical Care Critical Care patient: No
[2019-02-12] MEDS ORDERED: DEXTROSE 50%-WATER - 25 GM/50 ML VIAL IVPUSH ONE (08:36)
[2019-02-12 09:19] LABS: BILIRUBIN,DIRECT 0.5 mg/dL (0.0-0.2)
[2019-02-12] MEDS ORDERED: HYDROmorphone HCl 2 MG/ML VIAL IVPUSH PRN (10:58)
--- NOTE | 2019-02-12 10:58 | CON.CARD ---
Consult Consult Specialty:: Cardiology Referred by:: Hospitalist Reason for Consultation:: Cardiac evaluation - History of Present Illness Chief Complaint: Shortness of breath History of Present Illness: Patient is a 68 year old male with history of autonomic dysfunction (POTS), COPD , hypothyroidism and opioid use in the past currently requiring Methadone therapy who presented with altered mental status and respiratory distress. He was found by his who noted that he was less arousable with altered mentation therefore EMS was activated. Upon EMS arrival, he was found to be hypoxic in the 70's and placed on O2. He has been complaining of shortness of breath and cough. He was started on NIPPV in the ED and antibiotic was started. He had seen Dr. Low (PMD) and Dr. Cayden Briones (Protection Consultant) in the past. He is currently awake and alert this AM. He denies chest pain or palpitations. He denies fever or chills. He denies nausea, vomiting, diarrhea or abdominal pain. He denies headache or lightheadedness. He also presents with bilateral pedal edema. Chest CT revealed multiple infiltrates, but with overdistended gallbladder and LE Doppler negative for DVT. - History Source History Provided By: Patient, Family Member, Medical Record Limitations to Obtaining History: Clinical Condition - Past Medical History Pulmonary: Yes: COPD Endocrine: Yes: Hypothyroidism Additional Medical History: Autonomic dysfunction (POTS) - Alcohol/Substance Use Hx Alcohol Use: No History of Substance Use: reports: Heroin - Smoking History Smoking history: Current every day smoker Have you smoked in the past 12 months: Yes Aproximately how many cigarettes per day: 10 Home Medications - Allergies Allergies/Adverse Reactions: Allergies Allergy/AdvReac Type Severity Reaction Status Date / Time No Known Allergies Allergy Verified 02/11/19 14:54 - Home Medications Home Medications: Ambulatory Orders Alprazolam [Xanax] 0.25 mg PO Q6H 02/12/19 Levothyroxine [Synthroid -] 150 mcg PO DAILY 02/12/19 Methadone [Dolophine -] 80 mg PO DAILY 02/12/19 Metoprolol Tartrate [Lopressor -] 25 mg PO BID 02/12/19 Family Medical History Family History: Denies Review of Systems - Review of Systems Constitutional: denies: Chills, Fever Cardiovascular: reports: Shortness of Breath. denies: Chest Pain, Palpitations Respiratory: reports: Cough, SOB, SOB on Exertion. denies: Hemoptysis, Orthopnea, PND Gastrointestinal: denies: Abdominal Pain, Constipation, Diarrhea, Melena, Nausea , Rectal Bleeding, Vomiting Genitourinary: denies: Dysuria, Hematuria Musculoskeletal: denies: Back Pain, Joint Pain Neurological: denies: Dizziness, Headache, Seizure, Syncope Vital Signs: Vital Signs Temperature 98.2 F 02/12/19 09:32 Pulse Rate 91 H 02/12/19 09:32 Respiratory Rate 18 02/12/19 09:32 Blood Pressure 135/75 02/12/19 09:32 O2 Sat by Pulse Oximetry (%) 95 02/12/19 00:22 Eyes: Yes: PERRL HENT: Yes: Atraumatic Neck: Yes: Supple Respiratory: Yes: Cough, Diminished, On Nasal O2, Rhonchi, SOB Gastrointestinal: Yes: Normal Bowel Sounds, Soft. No: Tenderness Cardiovascular: Yes: Regular Rate and Rhythm, Tachycardia JVD: No PMI: Non-Displaced Heart Sounds: Yes: S1, S2 Murmur: Yes: Systolic Murmur, Grade 1 Edema: Yes - Other Data Labs, Other Data: CBC, BMP 02/12/19 05:15 02/12/19 05:15 INR, PTT INR 1.64 (0.83-1.09) H 02/11/19 17:30 Troponin, BNP 02/11/19 02/11/19 02/12/19 15:52 18:20 00:00 Troponin I 0.44 H 0.70 H* 0.79 H* 02/12/19 05:15 Troponin I 0.76 H* Laboratory Results - last 24 hr 02/11/19 02/11/19 02/11/19 15:52 15:52 15:52 WBC 20.1 H RBC 4.29 Hgb 15.0 Hct 44.1 MCV 102.7 H MCH 35.0 H MCHC 34.1 RDW 13.4 Plt Count 211 MPV 10.4 Absolute Neuts (auto) 17.8 H Total Counted 100 Neutrophils % 88.6 H Neutrophils % (Manual) 87.0 H Band Neutrophils % 2.0 Lymphocytes % 4.1 L Lymphocytes % (Manual) 4.0 L Monocytes % 7.2 Monocytes % (Manual) 6 Eosinophils % 0.0 Basophils % 0.1 Myelocytes % (Man) 1 Nucleated RBC % 0 Differential Comment Man diff performed Platelet Estimate Adequate Platelet Comment Giant platelets Polychromasia 1+ Macrocytosis 1+ ESR PT with INR INR PTT (Actin FS) Anticoagulation Therapy Puncture Site ABG pH ABG pCO2 at Pt Temp ABG pO2 at Pt Temp ABG HCO3 ABG O2 Sat (Measured) ABG O2 Content ABG Base Excess Bandar Test VBG pH POC VBG pCO2 POC VBG pO2 VBG HCO3 VBG O2 Sat ([place]) VBG Base Excess O2 Delivery Device Oxygen Flow Rate Vent Mode Vent Rate Mechanical Rate Pressure Support Vent Sodium 138 Potassium 4.6 Chloride 93 L Carbon Dioxide 34 H Anion Gap 11 BUN 26.5 H Creatinine 1.2 Est GFR (CKD-EPI)AfAm 70.58 Est GFR (CKD-EPI)NonAf 60.90 Random Glucose 96 Hemoglobin A1c % Lactic Acid 7.2 H* Calcium 8.4 L Phosphorus Magnesium Total Bilirubin 1.4 H Direct Bilirubin GGT AST 73 H ALT 29 Alkaline Phosphatase 100 Ammonia Creatine Kinase Troponin I 0.44 H C-Reactive Protein B-Natriuretic Peptide Total Protein 7.3 Albumin 2.5 L Vitamin B12 Serum Folate TSH Free T4 Urine Color Urine Appearance Urine pH Ur Specific [place] Urine Protein Urine Glucose (UA) Urine Ketones Urine Blood Urine Nitrite Urine Bilirubin Urine Urobilinogen Ur Leukocyte Esterase Urine WBC (Auto) Urine RBC (Auto) Urine Casts (Auto) U Epithel Cells (Auto) Urine Bacteria (Auto) Influenza A (Rapid) Influenza B (Rapid) RSV Rapid 02/11/19 02/11/19 02/11/19 15:52 16:34 17:30 WBC RBC Hgb Hct MCV MCH MCHC RDW Plt Count MPV Absolute Neuts (auto) Total Counted Neutrophils % Neutrophils % (Manual) Band Neutrophils % Lymphocytes % Lymphocytes % (Manual) Monocytes % Monocytes % (Manual) Eosinophils % Basophils % Myelocytes % (Man) Nucleated RBC % Differential Comment Platelet Estimate Platelet Comment Polychromasia Macrocytosis ESR PT with INR 19.40 H INR 1.64 H PTT (Actin FS) 31.2 Anticoagulation Therapy Puncture Site ABG pH ABG pCO2 at Pt Temp ABG pO2 at Pt Temp ABG HCO3 ABG O2 Sat (Measured) ABG O2 Content ABG Base Excess Bandar Test VBG pH 7.24 L POC VBG pCO2 80.4 H* POC VBG pO2 < 49 H VBG HCO3 33.3 H VBG O2 Sat ([place]) 37.6 L VBG Base Excess 2.9 H O2 Delivery Device Oxygen Flow Rate Vent Mode Vent Rate Mechanical Rate Pressure Support Vent Sodium Potassium Chloride Carbon Dioxide Anion Gap BUN Creatinine Est GFR (CKD-EPI)AfAm Est GFR (CKD-EPI)NonAf Random Glucose Hemoglobin A1c % Lactic Acid Calcium Phosphorus Magnesium Total Bilirubin Direct Bilirubin GGT AST ALT Alkaline Phosphatase Ammonia Creatine Kinase Troponin I C-Reactive Protein B-Natriuretic Peptide Total Protein Albumin Vitamin B12 Serum Folate TSH Free T4 Urine Color Dk yellow Urine Appearance Clear Urine pH 5.5 Ur Specific [place] 1.025 Urine Protein 2+ H Urine Glucose (UA) Negative Urine Ketones Negative Urine Blood Negative Urine Nitrite Negative Urine Bilirubin 1+ H Urine Urobilinogen 2.0 Ur Leukocyte Esterase Trace Urine WBC (Auto) 1 Urine RBC (Auto) 3 Urine Casts (Auto) 4 U Epithel Cells (Auto) 2.9 Urine Bacteria (Auto) 1.7 Influenza A (Rapid) Influenza B (Rapid) RSV Rapid 02/11/19 02/11/19 02/11/19 18:20 18:20 21:15 WBC RBC Hgb Hct MCV MCH MCHC RDW Plt Count MPV Absolute Neuts (auto) Total Counted Neutrophils % Neutrophils % (Manual) Band Neutrophils % Lymphocytes % Lymphocytes % (Manual) Monocytes % Monocytes % (Manual) Eosinophils % Basophils % Myelocytes % (Man) Nucleated RBC % Differential Comment Platelet Estimate Platelet Comment Polychromasia Macrocytosis ESR PT with INR INR PTT (Actin FS) Anticoagulation Therapy No Result Required. Puncture Site Right brachial ABG pH 7.43 ABG pCO2 at Pt Temp 47.8 H ABG pO2 at Pt Temp 67.1 L ABG HCO3 30.9 H ABG O2 Sat (Measured) 91.9 L ABG O2 Content 17.6 ABG Base Excess 5.9 H Bandar Test No Result Required. VBG pH POC VBG pCO2 POC VBG pO2 VBG HCO3 VBG O2 Sat ([place]) VBG Base Excess O2 Delivery Device N/c Oxygen Flow Rate 3lpm Vent Mode No Result Required. Vent Rate No Result Required. Mechanical Rate No Result Required. Pressure Support Vent No Result Required. Sodium Potassium Chloride Carbon Dioxide Anion Gap BUN Creatinine Est GFR (CKD-EPI)AfAm Est GFR (CKD-EPI)NonAf Random Glucose Hemoglobin A1c % Lactic Acid 4.7 H* Calcium Phosphorus Magnesium Total Bilirubin Direct Bilirubin GGT AST ALT Alkaline Phosphatase Ammonia Creatine Kinase Troponin I 0.70 H* C-Reactive Protein B-Natriuretic Peptide Total Protein Albumin Vitamin B12 Serum Folate TSH Free T4 Urine Color Urine Appearance Urine pH Ur Specific [place] Urine Protein Urine Glucose (UA) Urine Ketones Urine Blood Urine Nitrite Urine Bilirubin Urine Urobilinogen Ur Leukocyte Esterase Urine WBC (Auto) Urine RBC (Auto) Urine Casts (Auto) U Epithel Cells (Auto) Urine Bacteria (Auto) Influenza A (Rapid) Influenza B (Rapid) RSV Rapid 02/12/19 02/12/19 02/12/19 05:15 05:15 05:15 WBC 15.5 H RBC 3.71 L Hgb 12.6 Hct 37.7 MCV 101.7 H MCH 33.8 H MCHC 33.3 RDW 13.5 Plt Count 202 MPV 10.0 Absolute Neuts (auto) 11.5 H Total Counted Neutrophils % 74.2 Neutrophils % (Manual) Band Neutrophils % Lymphocytes % 16.3 D Lymphocytes % (Manual) Monocytes % 9.1 Monocytes % (Manual) Eosinophils % 0.2 D Basophils % 0.2 Myelocytes % (Man) Nucleated RBC % 0 Differential Comment Platelet Estimate Platelet Comment Polychromasia Macrocytosis ESR PT with INR INR PTT (Actin FS) Anticoagulation Therapy Puncture Site ABG pH ABG pCO2 at Pt Temp ABG pO2 at Pt Temp ABG HCO3 ABG O2 Sat (Measured) ABG O2 Content ABG Base Excess Bandar Test VBG pH POC VBG pCO2 POC VBG pO2 VBG HCO3 VBG O2 Sat ([place]) VBG Base Excess O2 Delivery Device Oxygen Flow Rate Vent Mode Vent Rate Mechanical Rate Pressure Support Vent Sodium 139 Potassium 3.8 Chloride 99 Carbon Dioxide 35 H Anion Gap 5 L BUN 28.8 H Creatinine 0.8 Est GFR (CKD-EPI)AfAm 104.90 Est GFR (CKD-EPI)NonAf 90.51 Random Glucose 69 L Hemoglobin A1c % 5.2 Lactic Acid Calcium 7.3 L Phosphorus 2.8 Magnesium 2.0 Total Bilirubin 0.9 Direct Bilirubin 0.5 H GGT AST 52 H ALT 21 Alkaline Phosphatase 72 Ammonia Creatine Kinase Troponin I C-Reactive Protein B-Natriuretic Peptide Total Protein 5.6 L Albumin 2.0 L Vitamin B12 1005 H Serum Folate 17 TSH 0.45 Free T4 3.07 H Urine Color Urine Appearance Urine pH Ur Specific [place] Urine Protein Urine Glucose (UA) Urine Ketones Urine Blood Urine Nitrite Urine Bilirubin Urine Urobilinogen Ur Leukocyte Esterase Urine WBC (Auto) Urine RBC (Auto) Urine Casts (Auto) U Epithel Cells (Auto) Urine Bacteria (Auto) Influenza A (Rapid) Influenza B (Rapid) RSV Rapid 02/12/19 02/12/19 02/12/19 05:15 06:20 08:08 WBC RBC Hgb Hct MCV MCH MCHC RDW Plt Count MPV Absolute Neuts (auto) Total Counted Neutrophils % Neutrophils % (Manual) Band Neutrophils % Lymphocytes % Lymphocytes % (Manual) Monocytes % Monocytes % (Manual) Eosinophils % Basophils % Myelocytes % (Man) Nucleated RBC % Differential Comment Platelet Estimate Platelet Comment Polychromasia Macrocytosis ESR PT with INR INR PTT (Actin FS) 46.5 H Anticoagulation Therapy No Result Required. Puncture Site Right brachial ABG pH 7.43 ABG pCO2 at Pt Temp 50.5 H ABG pO2 at Pt Temp 57.9 L ABG HCO3 33.1 H ABG O2 Sat (Measured) 88.2 L ABG O2 Content 15.9 ABG Base Excess 7.9 H Bandar Test Positive VBG pH POC VBG pCO2 POC VBG pO2 VBG HCO3 VBG O2 Sat ([place]) VBG Base Excess O2 Delivery Device N/c Oxygen Flow Rate 3lpm Vent Mode No Result Required. Vent Rate No Result Required. Mechanical Rate No Result Required. Pressure Support Vent No Result Required. Sodium Potassium Chloride Carbon Dioxide Anion Gap BUN Creatinine Est GFR (CKD-EPI)AfAm Est GFR (CKD-EPI)NonAf Random Glucose Hemoglobin A1c % Lactic Acid Calcium Phosphorus Magnesium Total Bilirubin Direct Bilirubin GGT AST ALT Alkaline Phosphatase Ammonia Creatine Kinase 74 Troponin I 0.76 H* C-Reactive Protein B-Natriuretic Peptide Total Protein Albumin Vitamin B12 Serum Folate TSH Free T4 Urine Color Urine Appearance Urine pH Ur Specific [place] Urine Protein Urine Glucose (UA) Urine Ketones Urine Blood Urine Nitrite Urine Bilirubin Urine Urobilinogen Ur Leukocyte Esterase Urine WBC (Auto) Urine RBC (Auto) Urine Casts (Auto) U Epithel Cells (Auto) Urine Bacteria (Auto) Influenza A (Rapid) Influenza B (Rapid) RSV Rapid 02/12/19 02/12/19 10:15 10:15 WBC RBC Hgb Hct MCV MCH MCHC RDW Plt Count MPV Absolute Neuts (auto) Total Counted Neutrophils % Neutrophils % (Manual) Band Neutrophils % Lymphocytes % Lymphocytes % (Manual) Monocytes % Monocytes % (Manual) Eosinophils % Basophils % Myelocytes % (Man) Nucleated RBC % Differential Comment Platelet Estimate Platelet Comment Polychromasia Macrocytosis ESR PT with INR INR PTT (Actin FS) Anticoagulation Therapy Puncture Site ABG pH ABG pCO2 at Pt Temp ABG pO2 at Pt Temp ABG HCO3 ABG O2 Sat (Measured) ABG O2 Content ABG Base Excess Bandar Test VBG pH POC VBG pCO2 POC VBG pO2 VBG HCO3 VBG O2 Sat ([place]) VBG Base Excess O2 Delivery Device Oxygen Flow Rate Vent Mode Vent Rate Mechanical Rate Pressure Support Vent Sodium Potassium Chloride Carbon Dioxide Anion Gap BUN Creatinine Est GFR (CKD-EPI)AfAm Est GFR (CKD-EPI)NonAf Random Glucose Hemoglobin A1c % Lactic Acid Calcium Phosphorus Magnesium Total Bilirubin Direct Bilirubin GGT 28 AST ALT Alkaline Phosphatase Ammonia < 10.00 L Creatine Kinase Troponin I C-Reactive Protein B-Natriuretic Peptide 5874.2 H Total Protein Albumin Vitamin B12 Serum Folate TSH Free T4 Urine Color Urine Appearance Urine pH Ur Specific [place] Urine Protein Urine Glucose (UA) Urine Ketones Urine Blood Urine Nitrite Urine Bilirubin Urine Urobilinogen Ur Leukocyte Esterase Urine WBC (Auto) Urine RBC (Auto) Urine Casts (Auto) U Epithel Cells (Auto) Urine Bacteria (Auto) Influenza A (Rapid) Influenza B (Rapid) RSV Rapid Sinus rhythm with APC and sinus arrhythmia, prolonged QT Echo: Pending Imaging - Results Chest X-ray: Report Reviewed (Hilar prominence) Cat Scan: Report Reviewed (Chest CT multilobar infiltrates, hilar prominence, overdistended gallbladder) Ultrasound: Report Reviewed (No DVT) EKG: Report Reviewed Problem List - Problems (1) Sepsis Code(s): A41.9 - SEPSIS, UNSPECIFIED ORGANISM (2) Pneumonia Code(s): J18.9 - PNEUMONIA, UNSPECIFIED ORGANISM (3) POTS (postural orthostatic tachycardia syndrome) Code(s): R00.0 - TACHYCARDIA, UNSPECIFIED; I95.1 - ORTHOSTATIC HYPOTENSION (4) COPD (chronic obstructive pulmonary disease) Code(s): J44.9 - CHRONIC OBSTRUCTIVE PULMONARY DISEASE, UNSPECIFIED (5) Hypothyroidism Code(s): E03.9 - HYPOTHYROIDISM, UNSPECIFIED (6) Demand ischemia Code(s): I24.8 - OTHER FORMS OF ACUTE ISCHEMIC HEART DISEASE (7) Respiratory failure with hypercapnia Code(s): J96.92 - RESPIRATORY FAILURE, UNSPECIFIED WITH HYPERCAPNIA Qualifiers: Chronicity: unspecified Qualified Code(s): J96.92 - Respiratory failure, unspecified with hypercapnia Assessment/Plan 1. Acute respiratory failure with multilobar infiltrates suggest pneumonia 2. History of COPD with hypercapnea 3. Autonomic dysfunction (POTS) 4. Hypothyroidism 5. Opioid use currently on Methadone 6. Overdistended gallbladder 7. Elevated troponin due to demand ischemia PLAN: 1. Continue Metoprolol ER 25 mg QD as tolerated 2. Discontinue Heparin that was started in the ER 3. Trend troponin to document peak 4. Empiric antibiotic coverage 5. NIPPV as needed 6. Thyroid replacement therapy 7. Echocardiography to assess LV/RV and valvular function 8. Continue Methadone but close follow up of QTc 9. Further GI work up needed to evaluate gallbladder distension and to rule out cirrhosis Further plans are to follow Khari Israel MD
[2019-02-12 11:02] LABS: GAMMA GLUTAMYL TRANSPEPTIDASE 28 U/L (5-85); N-TERMINAL BNP 5874.2 pg/ml (5-125)
[2019-02-12] MEDS: ASPIRIN 81 MG CHEWABLE TABLETS PO SCH (11:10)
[2019-02-12] MEDS ORDERED: dilTIAZem HCL 50 MG/10 ML - 10 ML VIAL IVPUSH ONE (11:51)
[2019-02-12] MEDS: metoPROLOL SUCCINATE 25 MG TAB.SR.24H (FP) PO SCH (12:04)
--- NOTE | 2019-02-12 13:09 | CON.PULM ---
Consult Consult Specialty:: PULMONARY Referred by:: LASHAE Reason for Consultation:: COPD - History of Present Illness Chief Complaint: SOB History of Present Illness: 68yM w PMHx POTS, COPD, hypothyroidism, opioid use disorder (on suboxone), Hep C, active smoker, h/o splenectomy presenting with cough and lethargy. Has had productive cough and progressive worsening BLE swelling for past 2 weeks. Reduced activity, poor appetite, reduced energy for past week. Poor historian. - History Source History Provided By: Patient, Family Member Limitations to Obtaining History: Clinical Condition - Past Medical History [employer] MEMBER: No: Alzheimer's Cardio/Vascular: No: AFIB Pulmonary: Yes: COPD. No: O2 Dependent Gastrointestinal: Yes: Other (hep c) Hepatobiliary: Yes: Hepatitis C Renal/: No: Renal Failure Heme/Onc: No: Anemia Psych: Yes: Anxiety Musculoskeletal: No: Chronic low back pain Endocrine: Yes: Hypothyroidism Additional Medical History: Autonomic dysfunction (POTS) - Past Surgical History Past Surgical History: Yes: Splenectomy - Alcohol/Substance Use Hx Alcohol Use: No History of Substance Use: reports: Heroin - Smoking History Smoking history: Current every day smoker Have you smoked in the past 12 months: Yes Aproximately how many cigarettes per day: 10 - Social History Usual Living Arrangement: With Spouse ADL: Family Assistance Place of : [facility] History of Recent Travel: No Home Medications - Allergies Allergies/Adverse Reactions: Allergies Allergy/AdvReac Type Severity Reaction Status Date / Time No Known Allergies Allergy Verified 02/11/19 14:54 - Home Medications Home Medications: Ambulatory Orders Alprazolam [Xanax] 0.25 mg PO Q6H 02/12/19 Levothyroxine [Synthroid -] 150 mcg PO DAILY 02/12/19 Methadone [Dolophine -] 80 mg PO DAILY 02/12/19 Metoprolol Tartrate [Lopressor -] 25 mg PO BID 02/12/19 Family Medical History Family History: Unremarkable Review of Systems - Review of Systems Constitutional: reports: Fever, Lethargy, Loss of Appetite Eyes: denies: Double Vision HENT: denies: Ear Discharge Neck: denies: Lumps Respiratory: reports: Cough, Exercise Intolerance. denies: Wheezing Gastrointestinal: denies: Abdominal Pain Genitourinary: reports: No Symptoms Physical Exam Vital Sings: Vital Signs Temperature 98.2 F 02/12/19 09:32 Pulse Rate 91 H 02/12/19 09:32 Respiratory Rate 18 02/12/19 09:32 Blood Pressure 135/75 02/12/19 09:32 O2 Sat by Pulse Oximetry (%) 95 02/12/19 00:22 Constitutional: Yes: Anxious Eyes: Yes: EOM Intact HENT: Yes: Normocephalic Neck: Yes: Trachea Midline Cardiovascular: Yes: Regular Rate and Rhythm Respiratory: Yes: Diminished Gastrointestinal: Yes: Normal Bowel Sounds Edema: LLE: 2+, RLE: 3+ Labs: CBC, BMP 02/12/19 05:15 02/12/19 05:15 ABG Results ABG pH 7.43 (7.35-7.45) 02/12/19 06:20 ABG pCO2 at Pt Temp 50.5 mmHg (35-45) H 02/12/19 06:20 ABG pO2 at Pt Temp 57.9 mmHg (80-100) L 02/12/19 06:20 ABG HCO3 33.1 mmol/L (22-27) H 02/12/19 06:20 ABG O2 Sat (Measured) 88.2 % (95-98) L 02/12/19 06:20 ABG O2 Content 15.9 % vol 02/12/19 06:20 ABG Base Excess 7.9 meq/l (-2-2) H 02/12/19 06:20 Imaging - Results Chest X-ray: Report Reviewed, Image Reviewed Cat Scan: Report Reviewed, Image Reviewed Ultrasound: Report Reviewed Problem List - Problems (1) COPD (chronic obstructive pulmonary disease) Code(s): J44.9 - CHRONIC OBSTRUCTIVE PULMONARY DISEASE, UNSPECIFIED (2) Demand ischemia Code(s): I24.8 - OTHER FORMS OF ACUTE ISCHEMIC HEART DISEASE (3) Hypothyroidism Code(s): E03.9 - HYPOTHYROIDISM, UNSPECIFIED (4) POTS (postural orthostatic tachycardia syndrome) Code(s): R00.0 - TACHYCARDIA, UNSPECIFIED; I95.1 - ORTHOSTATIC HYPOTENSION (5) Pneumonia Code(s): J18.9 - PNEUMONIA, UNSPECIFIED ORGANISM (6) Respiratory failure with hypercapnia Code(s): J96.92 - RESPIRATORY FAILURE, UNSPECIFIED WITH HYPERCAPNIA Qualifiers: Chronicity: unspecified Qualified Code(s): J96.92 - Respiratory failure, unspecified with hypercapnia Assessment/Plan BILATERAL PATCHY INFILTRATES SUPERIMPOSED UPON CHRONIC INTERSTITIAL LUNG CHANGES LIKELY DUE TO UNDERLYING COPD ACUTE HYPERCAPNEIC RESP FAILURE ? BASIS OF METHADONE/PNEUMONIA H/O SPLENECTOMY HEP C OPIATE ABUSE ISSUES O2/ANTIBIOTICS/PAP REQUIRED/BRONCHODILATORS HAVE ORDERED HIV TEST CONTINUE TO MONITOR ON MEDICAL HOYT Dayan MONTALVO MD
[2019-02-12] MEDS ORDERED: PT OWN MED DRAWER 7, Y5N ONE (16:44)
[2019-02-12] MEDS: DOXYCYCLINE INJECTION 100 MG in DEXTROSE 5%-WATER - 100 ML IVPB SCH ×2 (17:54→22:09)
[2019-02-12 20:30] LABS: PREALBUMIN < 3.0 mg/dl (20-40)
[2019-02-13] MEDS: ALBUTEROL SO4 2.5/IPRATROPIUM 0.5 INH SOL 3 ML VIAL.NEB. NEB SCH ×4 (07:17→20:30)
[2019-02-13] MEDS: ASPIRIN 81 MG CHEWABLE TABLETS PO SCH (09:19)
[2019-02-13] MEDS: metoPROLOL SUCCINATE 25 MG TAB.SR.24H (FP) PO SCH ×2 (09:19→21:03)
[2019-02-13] MEDS: DOXYCYCLINE INJECTION 100 MG in DEXTROSE 5%-WATER - 100 ML IVPB SCH (09:19)
--- NOTE | 2019-02-13 10:03 | PN ---
Progress Note, Physician Chief Complaint: Not in distress History of Present Illness: Patient was seen and examined. Awake and alert. Chart was reviewed Denies chest pain, SOB or palpitations - Current Medication List Current Medications: Active Medications Albuterol Sulfate (Ventolin 0.083% Nebulizer Soln -) 1 amp NEB Q4H PRN PRN Reason: SHORT OF BREATH/WHEEZING Albuterol/Ipratropium (Duoneb -) 1 amp NEB RQID [facility] Last Admin: 02/13/19 07:17 Dose: 1 amp Alprazolam (Xanax -) 0.25 mg PO Q6H PRN PRN Reason: ANXIETY Aspirin (Asa -) 81 mg PO DAILY [facility] Last Admin: 02/13/19 09:19 Dose: 81 mg Hydromorphone HCl (Dilaudid Vial -) 2 mg IVPUSH Q6H PRN PRN Reason: PAIN LEVEL 6-10 Piperacillin Sod/Tazobactam (Sod 3.375 gm/ Dextrose) 50 mls @ 100 mls/hr IVPB Q8H-IV THERESA; Protocol Doxycycline Hyclate 100 mg/ (Dextrose) 100 mls @ 100 mls/hr IVPB BID [facility] Last Admin: 02/13/19 09:19 Dose: 100 mls/hr Metoprolol Succinate (Toprol Xl -) 25 mg PO DAILY [facility] Last Admin: 02/13/19 09:19 Dose: 25 mg - Objective Vital Signs: Vital Signs Temperature 97.9 F 02/13/19 09:00 Pulse Rate 78 02/13/19 09:00 Respiratory Rate 18 02/13/19 09:00 Blood Pressure 146/80 02/13/19 09:00 O2 Sat by Pulse Oximetry (%) 96 02/12/19 21:01 Eyes: Yes: PERRL HENT: Yes: Atraumatic Neck: Yes: Supple Cardiovascular: Yes: Regular Rate and Rhythm, S1, S2 Respiratory: Yes: Diminished Gastrointestinal: Yes: Normal Bowel Sounds, Soft Edema: No Additional Findings/Remarks: - Review of Systems Constitutional: denies: Chills, Fever Cardiovascular: reports: Shortness of Breath. denies: Chest Pain, Palpitations Respiratory: reports: Cough, SOB, SOB on Exertion. denies: Hemoptysis, Orthopnea, PND Gastrointestinal: denies: Abdominal Pain, Constipation, Diarrhea, Melena, Nausea , Rectal Bleeding, Vomiting Genitourinary: denies: Dysuria, Hematuria Musculoskeletal: denies: Back Pain, Joint Pain Neurological: denies: Dizziness, Headache, Seizure, Syncope Problem List - Problems (1) Sepsis Code(s): A41.9 - SEPSIS, UNSPECIFIED ORGANISM (2) Pneumonia Code(s): J18.9 - PNEUMONIA, UNSPECIFIED ORGANISM (3) POTS (postural orthostatic tachycardia syndrome) Code(s): R00.0 - TACHYCARDIA, UNSPECIFIED; I95.1 - ORTHOSTATIC HYPOTENSION (4) COPD (chronic obstructive pulmonary disease) Code(s): J44.9 - CHRONIC OBSTRUCTIVE PULMONARY DISEASE, UNSPECIFIED (5) Hypothyroidism Code(s): E03.9 - HYPOTHYROIDISM, UNSPECIFIED (6) Demand ischemia Code(s): I24.8 - OTHER FORMS OF ACUTE ISCHEMIC HEART DISEASE (7) Respiratory failure with hypercapnia Code(s): J96.92 - RESPIRATORY FAILURE, UNSPECIFIED WITH HYPERCAPNIA Qualifiers: Chronicity: unspecified Qualified Code(s): J96.92 - Respiratory failure, unspecified with hypercapnia Assessment/Plan 1. Acute respiratory failure with multilobar infiltrates suggest pneumonia 2. History of COPD with hypercapnea 3. Autonomic dysfunction (POTS) 4. Hypothyroidism 5. Opioid use currently on Methadone 6. Overdistended gallbladder 7. Elevated troponin due to demand ischemia 8. PSVT PLAN: 1. Increase Metoprolol ER 25 mg BID as tolerated. Cardizem IV as needed 2. Trend troponin to document peak 3. Empiric antibiotic coverage 4. NIPPV as needed 5. Thyroid replacement therapy 6. Echocardiography to assess LV/RV and valvular function 7. Continue Methadone but close follow up of QTc 8. Further GI work up needed to evaluate gallbladder distension and to rule out cirrhosis Further plans are to follow Khari Israel MD
[2019-02-13] MEDS ORDERED: dilTIAZem HCL 50 MG/10 ML - 10 ML VIAL IVPUSH PRN (10:11)
[2019-02-13] MEDS ORDERED: DEXTROSE 5%-0.45% SALINE 1,000 ML IV SCH (11:30)
--- NOTE | 2019-02-13 11:32 | CON.ID ---
Consult Consult Specialty:: infectious diseases Referred by:: hospitalist Reason for Consultation:: pneumonia - History of Present Illness Chief Complaint: cough,sob History of Present Illness: 68yM w PMHx POTS, COPD, hypothyroidism, opioid use disorder (on suboxone) presenting with cough and lethargy. Has had productive cough and progressive worsening BLE swelling for past 2 weeks. Reduced activity, poor appetite, reduced energy for past week. Denies fever, SOB, chest/AB pain, urinary/bowel mvmt changes. patient is non compliant in many respects Pt's noted today that he was less than arousable with altered mentation and called ambulance. Upon arrival pt was noted to be hypoxic to 77% and was brought immediately to the ER. Pt upon arrival again had only arousal to noxious stimuli and during his workup pt was found to have multifocal pneumonia and hypercapnea. Pt was initiated on antibiotic therapy and NIPPV. Pt at time of exam is awake and oriented, however remains poor medical auditor. at bedside provides most of history. 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 No: O2 Dependent Gastrointestinal: Yes: Other (hep c) Hepatobiliary: Yes: Hepatitis C Renal/: No: Renal Failure Psych: Yes: Anxiety Musculoskeletal: No: Chronic low back pain Endocrine: Yes: Hypothyroidism Additional Medical History: Autonomic dysfunction (POTS) - Past Surgical History Past Surgical History: Yes: Splenectomy - Alcohol/Substance Use Hx Alcohol Use: No History of Substance Use: reports: Heroin - Smoking History Smoking history: Current every day smoker Have you smoked in the past 12 months: Yes Aproximately how many cigarettes per day: 10 - Social History Usual Living Arrangement: With Spouse ADL: Family Assistance History of Recent Travel: No Home Medications - Allergies Allergies/Adverse Reactions: Allergies Allergy/AdvReac Type Severity Reaction Status Date / Time No Known Allergies Allergy Verified 02/11/19 14:54 - Home Medications Home Medications: Ambulatory Orders Alprazolam [Xanax] 0.25 mg PO Q6H 02/12/19 Levothyroxine [Synthroid -] 150 mcg PO DAILY 02/12/19 Methadone [Dolophine -] 80 mg PO DAILY 02/12/19 Metoprolol Tartrate [Lopressor -] 25 mg PO BID 02/12/19 Review of Systems - Review of Systems Constitutional: reports: No Symptoms Eyes: reports: No Symptoms HENT: reports: No Symptoms Neck: reports: No Symptoms Cardiovascular: reports: No Symptoms Respiratory: reports: Cough, SOB, Other Gastrointestinal: reports: No Symptoms Genitourinary: reports: No Symptoms Musculoskeletal: reports: No Symptoms Integumentary: reports: Other (swelling of both legs) Neurological: reports: Change in LOC Endocrine: reports: No Symptoms Hematology/Lymphatic: reports: No Symptoms Physical Exam Vital Signs: Vital Signs Temperature 97.9 F 02/13/19 09:00 Pulse Rate 78 02/13/19 09:00 Respiratory Rate 18 02/13/19 09:00 Blood Pressure 146/80 02/13/19 09:00 O2 Sat by Pulse Oximetry (%) 96 02/13/19 09:00 Constitutional: Yes: No Distress, Calm Eyes: Yes: Conjunctiva Clear HENT: Yes: Atraumatic, Normocephalic Cardiovascular: Yes: Regular Rate and Rhythm, Murmur (systolic) Respiratory: Yes: Regular, On Nasal O2, Poor Air Entry (bases) Gastrointestinal: Yes: Normal Bowel Sounds, Soft Musculoskeletal: Yes: WNL Extremities: Yes: Other Edema: LLE: 2+, RLE: 2+ Integumentary: Yes: Other (swelling of the legs) Neurological: Yes: Alert, Oriented Psychiatric: Yes: Alert, Oriented Labs: CBC, BMP 02/12/19 05:15 Imaging - Results Chest X-ray: Report Reviewed, Image Reviewed Cat Scan: Report Reviewed, Image Reviewed Assessment/Plan Problem List - Problems (1) COPD (chronic obstructive pulmonary disease) Code(s): J44.9 - CHRONIC OBSTRUCTIVE PULMONARY DISEASE, UNSPECIFIED (2) Demand ischemia Code(s): I24.8 - OTHER FORMS OF ACUTE ISCHEMIC HEART DISEASE (3) Hypothyroidism Code(s): E03.9 - HYPOTHYROIDISM, UNSPECIFIED (4) POTS (postural orthostatic tachycardia syndrome) Code(s): R00.0 - TACHYCARDIA, UNSPECIFIED; I95.1 - ORTHOSTATIC HYPOTENSION (5) Pneumonia Code(s): J18.9 - PNEUMONIA, UNSPECIFIED ORGANISM (6) Respiratory failure with hypercapnia Code(s): J96.92 - RESPIRATORY FAILURE, UNSPECIFIED WITH HYPERCAPNIA Qualifiers: Chronicity: unspecified Qualified Code(s): J96.92 - Respiratory failure, unspecified with hypercapnia patient who has splenectomy,non compliant plan we will continue abx await for cx reports resp support rest as per the team
[2019-02-13 11:40] LABS: ALBUMIN 2.3 g/dl (3.4-5.0); BILIRUBIN,TOTAL 1.1 mg/dL (0.2-1); BLOOD UREA NITROGEN 17.2 mg/dL (7-18); CALCIUM 7.7 mg/dL (8.5-10.1); CREATININE 0.8 mg/dL (0.55-1.3); POTASSIUM 3.6 mmol/L (3.5-5.1); TOT PROT 6.3 g/dl (6.4-8.2)
--- NOTE | 2019-02-13 11:41 | PN ---
Progress Note, Physician History of Present Illness: stable no new issues - Current Medication List Current Medications: Active Medications Albuterol Sulfate (Ventolin 0.083% Nebulizer Soln -) 1 amp NEB Q4H PRN PRN Reason: SHORT OF BREATH/WHEEZING Albuterol/Ipratropium (Duoneb -) 1 amp NEB RQID [facility] Last Admin: 02/13/19 07:17 Dose: 1 amp Alprazolam (Xanax -) 0.25 mg PO Q6H PRN PRN Reason: ANXIETY Aspirin (Asa -) 81 mg PO DAILY [facility] Last Admin: 02/13/19 09:19 Dose: 81 mg Diltiazem HCl (Cardizem Injection -) 10 mg IVPUSH Q4H PRN PRN Reason: TACHYCARDIA Hydromorphone HCl (Dilaudid Vial -) 2 mg IVPUSH Q6H PRN PRN Reason: PAIN LEVEL 6-10 Piperacillin Sod/Tazobactam (Sod 3.375 gm/ Dextrose) 50 mls @ 100 mls/hr IVPB Q8H-IV [facility]; Protocol Doxycycline Hyclate 100 mg/ (Dextrose) 100 mls @ 100 mls/hr IVPB BID [facility] Last Admin: 02/13/19 09:19 Dose: 100 mls/hr Dextrose/Sodium Chloride (D5-1/2ns -) 1,000 mls @ 75 mls/hr IV ASDIR [facility] Metoprolol Succinate (Toprol Xl -) 25 mg PO BID [facility] - Objective Vital Signs: Vital Signs Temperature 97.9 F 02/13/19 09:00 Pulse Rate 78 02/13/19 09:00 Respiratory Rate 18 02/13/19 09:00 Blood Pressure 146/80 02/13/19 09:00 O2 Sat by Pulse Oximetry (%) 96 02/13/19 09:00 Constitutional: Yes: No Distress, Calm Cardiovascular: Yes: S1, S2 Respiratory: Yes: Regular, On Nasal O2 Gastrointestinal: Yes: Normal Bowel Sounds, Soft Musculoskeletal: Yes: WNL Extremities: Yes: Other Edema: LLE: 2+, RLE: 2+ Neurological: Yes: Alert, Oriented Psychiatric: Yes: Alert, Oriented Labs: CBC, BMP 02/12/19 05:15 INR, PTT INR 1.64 (0.83-1.09) H 11/01/19 17:30 Assessment/Plan Problem List - Problems (1) COPD (chronic obstructive pulmonary disease) Code(s): J44.9 - CHRONIC OBSTRUCTIVE PULMONARY DISEASE, UNSPECIFIED (2) Demand ischemia Code(s): I24.8 - OTHER FORMS OF ACUTE ISCHEMIC HEART DISEASE (3) Hypothyroidism Code(s): E03.9 - HYPOTHYROIDISM, UNSPECIFIED (4) POTS (postural orthostatic tachycardia syndrome) Code(s): R00.0 - TACHYCARDIA, UNSPECIFIED; I95.1 - ORTHOSTATIC HYPOTENSION (5) Pneumonia Code(s): J18.9 - PNEUMONIA, UNSPECIFIED ORGANISM (6) Respiratory failure with hypercapnia Code(s): J96.92 - RESPIRATORY FAILURE, UNSPECIFIED WITH HYPERCAPNIA Qualifiers: Chronicity: unspecified Qualified Code(s): J96.92 - Respiratory failure, unspecified with hypercapnia leukocytosis plan monitor wbc resp support rest as [er the team
--- NOTE | 2019-02-13 11:55 | PN ---
Progress Note (short form) - Note Progress Note: PULMONARY SUBJECTIVE IMPROVEMENT VSS/AFEBRILE ANICTERIC/PALE SCATTERED CRACKLES S1S2 BS+ NO EDEMA LABS/MEDS/MICRO/NOTES REVIEWED (1) COPD (chronic obstructive pulmonary disease) Code(s): J44.9 - CHRONIC OBSTRUCTIVE PULMONARY DISEASE, UNSPECIFIED (2) Demand ischemia Code(s): I24.8 - OTHER FORMS OF ACUTE ISCHEMIC HEART DISEASE (3) Hypothyroidism Code(s): E03.9 - HYPOTHYROIDISM, UNSPECIFIED (4) POTS (postural orthostatic tachycardia syndrome) Code(s): R00.0 - TACHYCARDIA, UNSPECIFIED; I95.1 - ORTHOSTATIC HYPOTENSION (5) Pneumonia Code(s): J18.9 - PNEUMONIA, UNSPECIFIED ORGANISM (6) Respiratory failure with hypercapnia Code(s): J96.92 - RESPIRATORY FAILURE, UNSPECIFIED WITH HYPERCAPNIA Qualifiers: Chronicity: unspecified Qualified Code(s): J96.92 - Respiratory failure, unspecified with hypercapnia BILATERAL PATCHY INFILTRATES SUPERIMPOSED UPON CHRONIC INTERSTITIAL LUNG CHANGES LIKELY DUE TO UNDERLYING COPD ACUTE HYPERCAPNEIC RESP FAILURE ? BASIS OF METHADONE/PNEUMONIA H/O SPLENECTOMY HEP C OPIATE ABUSE ISSUES O2/ANTIBIOTICS/PAP REQUIRED/BRONCHODILATORS HAVE ORDERED HIV TEST CONTINUE TO MONITOR ON MEDICAL HOYT Dayan MONTALVO MD Problem List - Problems (1) COPD (chronic obstructive pulmonary disease) Code(s): J44.9 - CHRONIC OBSTRUCTIVE PULMONARY DISEASE, UNSPECIFIED (2) Demand ischemia Code(s): I24.8 - OTHER FORMS OF ACUTE ISCHEMIC HEART DISEASE (3) Hypothyroidism Code(s): E03.9 - HYPOTHYROIDISM, UNSPECIFIED (4) POTS (postural orthostatic tachycardia syndrome) Code(s): R00.0 - TACHYCARDIA, UNSPECIFIED; I95.1 - ORTHOSTATIC HYPOTENSION (5) Pneumonia Code(s): J18.9 - PNEUMONIA, UNSPECIFIED ORGANISM (6) Respiratory failure with hypercapnia Code(s): J96.92 - RESPIRATORY FAILURE, UNSPECIFIED WITH HYPERCAPNIA Qualifiers: Chronicity: unspecified Qualified Code(s): J96.92 - Respiratory failure, unspecified with hypercapnia
[2019-02-13] MEDS: ALPRAZolam 0.25 MG TABLET PO PRN (12:56)
--- NOTE | 2019-02-13 14:09 | CONSULT ---
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 No: O2 Dependent Gastrointestinal: Yes: Other (hep c) Hepatobiliary: Yes: Hepatitis C Renal/: No: Renal Failure Psych: Yes: Anxiety Musculoskeletal: No: Chronic low back pain Endocrine: Yes: Hypothyroidism Additional Medical History: Autonomic dysfunction (POTS) - Past Surgical History Past Surgical History: Yes: Splenectomy - Alcohol/Substance Use Hx Alcohol Use: No History of Substance Use: reports: Heroin - Smoking History Smoking history: Current every day smoker Have you smoked in the past 12 months: Yes Aproximately how many cigarettes per day: 10 - Social History Usual Living Arrangement: With Spouse ADL: Family Assistance History of Recent Travel: No <Cl Aguilar - Last Filed: 02/13/19 14:08> - History of Present Illness Chief Complaint: Abnormal LFTs, Positive HIDA scan History of Present Illness: This is a 68-year-old male who presented to the emergency department after his called 911 because he had altered mental status. In the emergency department, the patient was found to have 77% SPO2 and pneumonia. He was found to have a dilated CBD and underwent MRCP that showed no CBD abnormality. HIDA scan showed no filling after 2 hours. The patient has no pain. - Past Medical History Additional Medical History: Opiate addiction on Suboxone/Methadone - Past Surgical History Past Surgical History: Yes: Splenectomy (Trauma with partial hepatectomy ) <Angelica Waters - Last Filed: 02/14/19 20:04> Home Medications <Cl Aguilar - Last Filed: 02/13/19 14:08> <Angelica Waters - Last Filed: 02/14/19 20:04> - Allergies Allergies/Adverse Reactions: Allergies Allergy/AdvReac Type Severity Reaction Status Date / Time No Known Allergies Allergy Verified 02/11/19 14:54 - Home Medications Home Medications: Ambulatory Orders Alprazolam [Xanax] 0.25 mg PO Q6H 02/12/19 Levothyroxine [Synthroid -] 150 mcg PO DAILY 02/12/19 Methadone [Dolophine -] 80 mg PO DAILY 02/12/19 Metoprolol Tartrate [Lopressor -] 25 mg PO BID 02/12/19 Family Medical History Family History: Denies (No known history of inherited diseases) <Angelica Waters - Last Filed: 02/14/19 20:04> Review of Systems - Review of Systems Constitutional: denies: Chills, Unintentional Wgt. Loss Eyes: denies: Blind Spots, Blurred Vision HENT: denies: Hearing Loss, Throat Pain Neck: denies: Decreased ROM, Lumps Cardiovascular: denies: Chest Pain, Edema Respiratory: reports: SOB. denies: Wheezing Gastrointestinal: denies: Abdominal Pain, Diarrhea, Nausea Genitourinary: denies: Burning, Dysuria Musculoskeletal: denies: Extremity Pain, Muscle Cramps Integumentary: denies: Rash, Wound Neurological: denies: Change in Speech, Headache Endocrine: reports: Other (Thyroid abnormalities). denies: Unexplained Weight Loss Hematology/Lymphatic: denies: Easily Bruised, Excessive Bleeding Psychiatric: denies: Anxiety, Depression <Angelica Waters - Last Filed: 02/14/19 20:04> Physical Exam Vital Signs: Vital Signs Temperature 97.7 F 02/13/19 13:42 Pulse Rate 77 02/13/19 13:42 Respiratory Rate 18 02/13/19 13:42 Blood Pressure 139/69 02/13/19 13:42 O2 Sat by Pulse Oximetry (%) 96 02/13/19 09:00 Labs: CBC, BMP 02/12/19 05:15 02/13/19 11:00 <Cl Aguilar - Last Filed: 02/13/19 14:08> Vital Signs: Vital Signs Temperature 98.0 F 02/14/19 14:00 Pulse Rate 69 02/14/19 14:00 Respiratory Rate 20 02/14/19 14:00 Blood Pressure 179/79 H 02/14/19 14:00 O2 Sat by Pulse Oximetry (%) 96 02/14/19 09:00 Constitutional: Yes: Well Nourished, No Distress, Calm Eyes: Yes: Conjunctiva Clear, EOM Intact HENT: Yes: Atraumatic, Normocephalic Neck: Yes: Supple, Trachea Midline Cardiovascular: Yes: Regular Rate and Rhythm. No: S3 Respiratory: Yes: Regular, CTA Bilaterally Gastrointestinal: Yes: Normal Bowel Sounds, Soft (No tenderness elicited. Negative Knapp's sign. Midline incisional hernia - non reducible.), Other ( Ventral incisional hernia) ...Rectal Exam: Yes: Deferred Renal/: No: Hematuria, Oliguria Musculoskeletal: No: Back Pain, Joint Swelling Extremities: No: Cold, External Rotation Integumentary: No: Bruising, Incision Neurological: Yes: Alert, Oriented Psychiatric: Yes: Alert, Oriented Labs: CBC, BMP 02/14/19 05:40 02/14/19 05:40 <Angelica Waters E - Last Filed: 02/14/19 20:04> Imaging - Results Ultrasound: Report Reviewed, Image Reviewed MRI: Report Reviewed Other: Report Reviewed (HIDA scan) <Angelica Waters - Last Filed: 02/14/19 20:04> Assessment/Plan IMPRESSION: Pneumonia Sepsis Opiod dependence Positive HIDA scan Multiple medical problems PLAN: Consider cholecystostomy for 6-8 weeks given the fact that the patient has prior splenectomy and partial hepatectomy Prior surgery will likely make any operation higher-risk for this patient Further, given the fact that this patient has pneumonia, surgical risk is high We can follow as outpatient and consider elective cholecystectomy after he's recovered from the pneumonia Would definitely treat this patient conservatively first and then proceed with cholecystectomy if he still has symptoms after the cholecystostomy is removed Additionally, this patient may be a great candidate for the hepatobiliary surgeons at a tertiary care center Thank you for the courtesy of this consultation [facility] will follow along with you in the hospital <Angelica Waters - Last Filed: 02/14/19 20:04>
[2019-02-13] MEDS ORDERED: DEXTROSE 5%-WATER - 50 ML IVPB ONE ×2 (14:17→19:14)
[2019-02-13] MEDS ORDERED: PIPERACILLIN/TAZOBACTAM 3.375 GM VIAL IVPB ONE ×2 (14:17→19:14)
[2019-02-13] MEDS: PIPERACILLIN/TAZOB 3.375 GM 3.375 GM in DEXTROSE 5%-WATER - 50 ML IVPB SCH ×3 (14:46→19:15)
--- NOTE | 2019-02-13 14:52 | PN ---
Progress Note, Physician Chief Complaint: pt is doing well. abd pain resolved, still npo, for cbd dilatation, and also for the possible cholecystitis - Current Medication List Current Medications: Active Medications Albuterol Sulfate (Ventolin 0.083% Nebulizer Soln -) 1 amp NEB Q4H PRN PRN Reason: SHORT OF BREATH/WHEEZING Albuterol/Ipratropium (Duoneb -) 1 amp NEB RQID [facility] Last Admin: 02/13/19 11:38 Dose: 1 amp Alprazolam (Xanax -) 0.25 mg PO Q6H PRN PRN Reason: ANXIETY Last Admin: 02/13/19 12:56 Dose: 0.25 mg Aspirin (Asa -) 81 mg PO DAILY [facility] Last Admin: 02/13/19 09:19 Dose: 81 mg Diltiazem HCl (Cardizem Injection -) 10 mg IVPUSH Q4H PRN PRN Reason: TACHYCARDIA Hydromorphone HCl (Dilaudid Vial -) 2 mg IVPUSH Q6H PRN PRN Reason: PAIN LEVEL 6-10 Piperacillin Sod/Tazobactam (Sod 3.375 gm/ Dextrose) 50 mls @ 100 mls/hr IVPB Q8H-IV [facility]; Protocol Last Admin: 02/13/19 14:46 Dose: 100 mls/hr Dextrose/Sodium Chloride (D5-1/2ns -) 1,000 mls @ 75 mls/hr IV ASDIR [facility] Last Admin: 02/13/19 12:00 Dose: 75 mls/hr Metoprolol Succinate (Toprol Xl -) 25 mg PO BID [facility] - Objective Vital Signs: Vital Signs Temperature 97.7 F 02/13/19 13:42 Pulse Rate 77 02/13/19 13:42 Respiratory Rate 18 02/13/19 13:42 Blood Pressure 139/69 02/13/19 13:42 O2 Sat by Pulse Oximetry (%) 96 02/13/19 09:00 Constitutional: Yes: Well Nourished Eyes: Yes: EOM Intact HENT: Yes: Normocephalic Neck: Yes: Supple, Trachea Midline Cardiovascular: Yes: Regular Rate and Rhythm Respiratory: Yes: Regular Gastrointestinal: Yes: Normal Bowel Sounds Neurological: Yes: WNL Labs: CBC, BMP 02/12/19 05:15 02/13/19 11:00 INR, PTT INR 1.64 (0.83-1.09) H 02/11/19 17:30 Impression/Plan Impression/Plan: -Altered Mental Status secondary to likely toxic metabolic encephalopathy, is doing well, more alert, normal ammonia level, PSVT and demand ischemia, high troponin, -History of POTS *Cardiology consulted, monitor on tele high troponin level, pt seen by the cardiology, and is on metoprolol and also cardizem as needed, echo pending, Severe sepsis 2/2 Multifocal pneumonia, r/o aspiration component. continue the abx as per ID, -Acute Mixed Respiratory Failure secondary to PNA/COPD *Check BNP to r/o element of CHF, FU echo, PRN O2 -Lactic acidosis -Downtrended -R/O Cirrhosis -Likely Hyperthyroidism; awaiting consult Dr. Calvillo -Hypoalbuminemia *Check prealbumin; consider underlying cirrhosis -Dilated CBD 1.3CM with hyperbilirubinemia *GI consult called with dr Raymundo,and surgical consult, and MRCP npo, on ivf. Full Code Visit type - Emergency Visit Emergency Visit: No Visit type - Emergency Visit Emergency Visit: No - New Patient This patient is new to me today: Yes Date on this admission: 02/13/19 - Critical Care Critical Care patient: No - Discharge Referral Referred to [facility] Med P.C.: No
[2019-02-13 16:07] VITALS: BMI 27.2
--- NOTE | 2019-02-13 18:46 | CONS ---
DATE OF CONSULTATION: DATE OF DICTATION: 02/13/2019 The patient is a 68-year-old man with a past medical history of questionable autonomic dysfunction, COPD, heart disease and heart failure, also with cardiac, who as per the , was brought to the hospital secondary to altered mental status and cough and respiratory distress. He was admitted with a diagnosis of COPD exacerbation and pneumonia. During the course, an abdominal ultrasound was performed. 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 This ultrasound showed an over-distended gallbladder with sludge and small stones, without wall thickening or pericholecystic fluid. The common bile duct measured 1.3 cm. MRCP was recommended. MRCP was ordered and revealed distended gallbladder with stones and sludge, mild dilation of the proximal intrahepatic ducts essentially in the left lobe of the common bile duct, which tapers at the ampulla without dilation of the pancreatic duct. There are no defects seen within the lumen of the CBD. There is also fatty liver. No hepatic masses were noted. As per the patient, he never had any abdominal pain, nausea, vomiting, diarrhea, constipation, blood in his stool, or previous episodes of biliary colic. He had a colonoscopy over 6 years ago, they did not recall the physician who performed it, and he has never had an upper endoscopy. Past medical and surgical history as listed in the HPI. ALLERGIES: No known drug allergies. He is an active smoker, quit a couple of weeks ago when he became ill. He does not drink or use drugs. Home medications were reviewed. PHYSICAL EXAMINATION: Vital Signs: Temperature 97, pulse 77, blood pressure 139/69, respiratory rate 18, saturation of oxygen 96 on 3 L. General: No acute distress. HEENT: Anicteric sclerae. Cardiovascular: S1, S2, regular rate and rhythm. Lungs: Bilaterally clear to auscultation. Abdomen: Nontender, tympanitic. Negative Knapp sign. Normal bowel sounds. Extremities: Without edema. LABORATORY DATA: White blood cell count 15.5, it was previously 20. Hemoglobin 12, hematocrit 37, MCV 101, platelet count 202, INR 1.6, sodium 138, potassium 3.6, BUN 17, creatinine 0.8, total bilirubin is 1.1, AST 51, ALT 25, alkaline phosphatase 80. Urine: 2+ protein, 1+ bilirubin. Serology for hepatitis C is antibody positive. Hepatitis A and B are negative. Cultures so far are negative. MRI, MRCP, and ultrasound as mentioned in the HPI. IMPRESSION: Distended gallbladder with cholelithiasis and sludge, also with a dilated common bile duct; however, MRCP does not reveal any obstructing stones or wall defect. He may have a dilated common bile duct secondary to passed stones or sludge in the past or microlithiasis. His liver tests, AST and ALT as well as his bilirubin appear to be within normal limits. I doubt he has an active obstructive process. RECOMMENDATION: Clear liquid diet, continue his current antibiotics. Would obtain a surgery evaluation and also, to further evaluate, a HIDA scan can be ordered. At this time, there is no role for an ERCP. If a HIDA scan does show a defect, then ERCP will be entertained at that point. This patient will be followed by the GI service. DO NAHID LYLE/[id number]
--- NOTE | 2019-02-13 20:53 | CONSULT ---
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 found to have pneumonia, and cholelithiasis.his thyroid level on admission are elevated on recent increase in t4 by his physician. He has mild tremor and feels palpitation more often.he was on synthroid 125mcg in past and recently taking 150mcg. - Past Medical History LANDMAN: No: Alzheimer's Cardio/Vascular: No: AFIB Pulmonary: Yes: COPD. No: O2 Dependent Gastrointestinal: Yes: Other (hep c) Hepatobiliary: Yes: Hepatitis C Renal/: No: Renal Failure Psych: Yes: Anxiety Musculoskeletal: No: Chronic low back pain Endocrine: Yes: Hypothyroidism Additional Medical History: Autonomic dysfunction (POTS) - Past Surgical History Past Surgical History: Yes: Splenectomy - Alcohol/Substance Use Hx Alcohol Use: No History of Substance Use: reports: Heroin - Smoking History Smoking history: Current every day smoker Have you smoked in the past 12 months: Yes Aproximately how many cigarettes per day: 10 - Social History Usual Living Arrangement: With Spouse ADL: Family Assistance History of Recent Travel: No Home Medications - Allergies Allergies/Adverse Reactions: Allergies Allergy/AdvReac Type Severity Reaction Status Date / Time No Known Allergies Allergy Verified 02/11/19 14:54 - Home Medications Home Medications: Ambulatory Orders Alprazolam [Xanax] 0.25 mg PO Q6H 02/12/19 Levothyroxine [Synthroid -] 150 mcg PO DAILY 02/12/19 Methadone [Dolophine -] 80 mg PO DAILY 02/12/19 Metoprolol Tartrate [Lopressor -] 25 mg PO BID 02/12/19 Review of Systems - Review of Systems Constitutional: reports: Loss of Appetite Eyes: reports: No Symptoms HENT: reports: No Symptoms Neck: reports: No Symptoms Cardiovascular: reports: Palpitations Respiratory: reports: Exercise Intolerance, SOB on Exertion Gastrointestinal: reports: Bloating, Indigestion, Nausea Genitourinary: reports: No Symptoms Breasts: reports: No Symptoms Reported Musculoskeletal: reports: No Symptoms Neurological: reports: Tremors, Weakness Physical Exam Vital Signs: Vital Signs Temperature 97.7 F 02/13/19 18:00 Pulse Rate 77 02/13/19 18:00 Respiratory Rate 18 02/13/19 18:00 Blood Pressure 126/70 02/13/19 18:00 O2 Sat by Pulse Oximetry (%) 96 02/13/19 09:00 Constitutional: Yes: Anxious Eyes: Yes: EOM Intact HENT: Yes: Normocephalic Neck: Yes: Trachea Midline Cardiovascular: Yes: Regular Rate and Rhythm Respiratory: Yes: CTA Bilaterally Gastrointestinal: Yes: Normal Bowel Sounds ...Rectal Exam: Yes: Deferred Renal/: Yes: WNL Breast(s): Yes: WNL Musculoskeletal: Yes: WNL Extremities: Yes: WNL Edema: Yes Edema: LLE: 1+, RLE: 1+ Neurological: Yes: Alert, Oriented Labs: CBC, BMP 02/12/19 05:15 02/13/19 11:00 Problem List - Problems (1) COPD (chronic obstructive pulmonary disease) Code(s): J44.9 - CHRONIC OBSTRUCTIVE PULMONARY DISEASE, UNSPECIFIED (2) Demand ischemia Code(s): I24.8 - OTHER FORMS OF ACUTE ISCHEMIC HEART DISEASE (3) Hypothyroidism Code(s): E03.9 - HYPOTHYROIDISM, UNSPECIFIED (4) POTS (postural orthostatic tachycardia syndrome) Code(s): R00.0 - TACHYCARDIA, UNSPECIFIED; I95.1 - ORTHOSTATIC HYPOTENSION (5) Respiratory failure with hypercapnia Code(s): J96.92 - RESPIRATORY FAILURE, UNSPECIFIED WITH HYPERCAPNIA Qualifiers: Chronicity: unspecified Qualified Code(s): J96.92 - Respiratory failure, unspecified with hypercapnia (6) Sepsis Code(s): A41.9 - SEPSIS, UNSPECIFIED ORGANISM Assessment/Plan Current Active Problems COPD (chronic obstructive pulmonary disease) (Acute) Demand ischemia (Acute) Hypothyroidism (Acute) POTS (postural orthostatic tachycardia syndrome) (Acute) Pneumonia (Acute) Respiratory failure with hypercapnia (Acute) Sepsis (Acute) Severe sepsis (Acute) Abnormal Lab Results 02/12/19 02/13/19 10:15 11:00 Carbon Dioxide 33 H Anion Gap 5 L Calcium 7.7 L Total Bilirubin 1.1 H AST 51 H Total Protein 6.3 L Albumin 2.3 L Hepatitis C Ab (EIA) >11.0 H Laboratory Results - last 24 hr 02/12/19 02/12/19 02/13/19 10:15 21:59 03:22 Sodium Potassium Chloride Carbon Dioxide Anion Gap BUN Creatinine Est GFR (CKD-EPI)AfAm Est GFR (CKD-EPI)NonAf POC Glucometer 88 84 Random Glucose Calcium Total Bilirubin AST ALT Alkaline Phosphatase Total Protein Albumin Hep A IgM Ab Confirm Negative Hep Bs Antigen Negative Hep B Core IgM Ab Negative Hepatitis C Ab (EIA) >11.0 H 02/13/19 02/13/19 02/13/19 06:29 11:00 11:16 Sodium 138 Potassium 3.6 Chloride 100 Carbon Dioxide 33 H Anion Gap 5 L BUN 17.2 Creatinine 0.8 Est GFR (CKD-EPI)AfAm 104.90 Est GFR (CKD-EPI)NonAf 90.51 POC Glucometer 69 87 Random Glucose 98 Calcium 7.7 L Total Bilirubin 1.1 H AST 51 H ALT 25 Alkaline Phosphatase 80 Total Protein 6.3 L Albumin 2.3 L Hep A IgM Ab Confirm Hep Bs Antigen Hep B Core IgM Ab Hepatitis C Ab (EIA) plan: hypothyroidism synthroid 100mcg ck [id number]
[2019-02-13 21:16] LABS: COCAINE, UR NEGATIVE ng/ml (CUTOFF=300); OPIATES, URI NEGATIVE ng/ml (CUTOFF=300); PHENCYCLIDINE,URINE NEGATIVE ng/ml (CUTOFF=25); URINE AMPHETAMINES NEGATIVE ng/ml (CUTOFF=500); URINE BARBITURATES NEGATIVE ng/ml (CUTOFF=200)
[2019-02-13 21:19] LABS: METHADONE, UR POSITIVE ng/ml (CUTOFF=300); URINE BENZODIAZEPINES POSITIVE ng/ml (CUTOFF=200)
[2019-02-14] MEDS ORDERED: DEXTROSE 5%-WATER - 50 ML IVPB ONE ×3 (00:06→18:39)
[2019-02-14] MEDS ORDERED: PIPERACILLIN/TAZOBACTAM 3.375 GM VIAL IVPB ONE ×3 (00:06→18:39)
[2019-02-14] MEDS: PIPERACILLIN/TAZOB 3.375 GM 3.375 GM in DEXTROSE 5%-WATER - 50 ML IVPB SCH ×3 (01:10→18:58)
[2019-02-14] MEDS: LEVOTHYROXINE NA 100 MCG TABLET (FP) PO SCH (06:14)
[2019-02-14 06:42] LABS: BASO % 0.9 % (0-2.0); HEMOGLOBIN 13.2 GM/dL (11.7-16.9); LYMPH % 16.4 % (8-40); MCH 34.3 pg (25.7-33.7); MCHC 33.8 g/dl (32.0-35.9); MEAN CELL VOLUME 101.4 fl (80-96); MEAN PLT VOLUME 9.8 fl (7.5-11.1); MONO % 11.8 % (3.8-10.2); NEUT % 68.9 % (42.8-82.8); PLATELET COUNT 221 K/MM3 (134-434); RBC 3.85 M/mm3 (4.00-5.60); RDW 13.9 % (11.9-15.9); WHITE BLOOD COUNT 8.8 K/mm3 (4.0-10.0)
[2019-02-14 07:07] LABS: BILIRUBIN,TOTAL 1.2 mg/dL (0.2-1); BLOOD UREA NITROGEN 10.9 mg/dL (7-18); CALCIUM 7.5 mg/dL (8.5-10.1); CREATININE 0.8 mg/dL (0.55-1.3); POTASSIUM 3.4 mmol/L (3.5-5.1); TOT PROT 5.7 g/dl (6.4-8.2)
--- NOTE | 2019-02-14 07:35 | PN ---
Addendum entered and electronically signed by Bridger Spencer, RESIDENT 02/14/19 10:52: Hypokalemia noted on labs; repleted Kdur 40mEq Original Note: Progress Note (short form) - Note Progress Note: HPI: No events overnight. No telemetry monitoring events. Pt admits breathing is improved. Has not used NIPPV overnight. No fevers/chills, palpitations, chest pain, abdominal pain, diarrhea/constipation. Pt continues to have cough, however is improving on frequency. Vital Signs Temperature 98.3 F 02/14/19 05:47 Pulse Rate 70 02/14/19 05:47 Respiratory Rate 18 02/14/19 05:47 Blood Pressure 163/93 02/14/19 05:47 O2 Sat by Pulse Oximetry (%) 97 02/14/19 00:17 PE: Gen: NAD, awake, alert, oriented x3 HEENT: NC/AT, AMAYA, MMM Neck: No JVD Lungs: scattered rhonchi decreased from previous exam, no rales, no accessory muscle use CARD: RRR no murmurs appreciated ABD: soft, tense, nontender, hypoactive BS EXT: 1+ pitting edema b/l near ankles, strong pulses b/l CBC, BMP 02/14/19 05:40 02/14/19 05:40 Hepatic Panel Total Bilirubin 1.2 mg/dL (0.2-1) H 02/14/19 05:40 Direct Bilirubin 0.5 mg/dL (0.0-0.2) H 02/12/19 05:15 AST 41 U/L (15-37) H 02/14/19 05:40 ALT 22 U/L (13-61) 02/14/19 05:40 Alkaline Phosphatase 69 U/L (45-117) 02/14/19 05:40 Albumin 2.0 g/dl (3.4-5.0) L 02/14/19 05:40 Active Medications Albuterol Sulfate (Ventolin 0.083% Nebulizer Soln -) 1 amp NEB Q4H PRN PRN Reason: SHORT OF BREATH/WHEEZING Albuterol/Ipratropium (Duoneb -) 1 amp NEB RQID [facility] Last Admin: 02/13/19 20:30 Dose: 1 amp Alprazolam (Xanax -) 0.25 mg PO Q6H PRN PRN Reason: ANXIETY Last Admin: 02/13/19 12:56 Dose: 0.25 mg Aspirin (Asa -) 81 mg PO DAILY [facility] Last Admin: 02/14/19 10:13 Dose: 81 mg Diltiazem HCl (Cardizem Injection -) 10 mg IVPUSH Q4H PRN PRN Reason: TACHYCARDIA Piperacillin Sod/Tazobactam (Sod 3.375 gm/ Dextrose) 50 mls @ 100 mls/hr IVPB Q8H-IV [facility]; Protocol Last Admin: 02/14/19 10:13 Dose: 100 mls/hr Dextrose/Sodium Chloride (D5-1/2ns -) 1,000 mls @ 75 mls/hr IV ASDIR [facility] Last Admin: 02/13/19 12:00 Dose: 75 mls/hr Levothyroxine Sodium (Synthroid -) 100 mcg PO DAILY@0700 [facility] Last Admin: 02/14/19 06:14 Dose: Not Given Methadone HCl (Dolophine -) 80 mg PO DAILY@0600 [facility] Last Admin: 02/14/19 10:22 Dose: 80 mg Metoprolol Succinate (Toprol Xl -) 25 mg PO BID [facility] Last Admin: 02/14/19 10:13 Dose: 25 mg Microbiology 02/11/19 15:52 Blood - Peripheral Venous Blood Culture - Preliminary NO GROWTH OBTAINED AFTER 48 HOURS, INCUBATION TO CONTINUE FOR 3 DAYS. 02/11/19 15:52 Blood - Peripheral Venous Blood Culture - Preliminary NO GROWTH OBTAINED AFTER 48 HOURS, INCUBATION TO CONTINUE FOR 3 DAYS. 02/11/19 17:55 Sputum - Expectorated Gram Stain - Final 02/11/19 17:55 Sputum - Expectorated Sputum Culture - Preliminary NORMAL RESPIRATORY ROSA ISELA 02/11/19 16:34 Urine - Urine - Catheterized Urine Culture - Final NO GROWTH OBTAINED Assessment and Plan: Severe sepsis 2/2 Multifocal pneumonia (improving) Acute hypercapenic hypoxic respiratory distress (improved) Lactic acidosis (resolved) Demand ischemia (improving) PSVT episodes Hyperbilirubinemia Opioid Use Disorder Macrocytosis Hyperthyroidism History of COPD --Severe sepsis and respiratory distress improving: --Continue Zosyn 3.375 q8h IVPB for now --Appreciate ID consultation --Possibility of de-escalating antibiotics --Can discontinue IVF today as pt is tolerating PO --Echocardiogram pending --Titrate settings to maintain SPO2 >88% --Duoneb QID scheduled with Albuterol PRN --Can likely transition to Spiriva + Symbicort high dose by end of hospital stay --Pt decreased to Synthroid 100mcg qdaily as pt's TFTs notable for hyperthyroidism --Demand ischemia in setting of sepsis and PSVT --Continue ASA 81mg qdaily --Continue Metoprolol 25mg BID PO --Continue Cardizem IVP for breakthrough --RUQ and MRCP notable for CBD dilation with narrowing near sphincter: suspect sphincter spasticity --GI/surgery referrals --Continue Methadone 80mg daily as confirmed by pt's [facility] FEN: Fluids: Tolerating PO Electroltye abnormalities: none Nutrition: Can advance from clear to cardiac diet PPX: DVT - Heparin TID GI - Not indicated Dispo: Telemetry monitoring Case discussed with Dr. Franklin Spencer, DO - IM PGY-3
[2019-02-14] MEDS: ALBUTEROL SO4 2.5/IPRATROPIUM 0.5 INH SOL 3 ML VIAL.NEB. NEB SCH ×4 (07:48→20:56)
--- NOTE | 2019-02-14 08:43 | PN ---
Teaching Attending Note Name of Resident: Brdiger Spencer ATTENDING PHYSICIAN STATEMENT I saw and evaluated the patient. I reviewed the resident's note and discussed the case with the resident. I agree with the resident's findings and plan as documented. SUBJECTIVE: Patient denies SOB. OBJECTIVE: Vital Signs Period Temp Pulse Resp BP Sys/Bashir Pulse Ox Last 24 Hr 97.2 F-98.7 F 65-78 18-20 126-163/69-93 96-97 HEART: S1S2, RRR LUNGS: Scattered crackles ABDOMEN: Soft, non-tender, non-distended, normal BS EXTREMITIES: Trace edema Laboratory Results - last 24 hr 02/13/19 02/13/19 02/13/19 11:00 11:16 17:12 WBC RBC Hgb Hct MCV MCH MCHC RDW Plt Count MPV Absolute Neuts (auto) Neutrophils % Lymphocytes % Monocytes % Eosinophils % Basophils % Nucleated RBC % PTT (Actin FS) Sodium 138 Potassium 3.6 Chloride 100 Carbon Dioxide 33 H Anion Gap 5 L BUN 17.2 Creatinine 0.8 Est GFR (CKD-EPI)AfAm 104.90 Est GFR (CKD-EPI)NonAf 90.51 POC Glucometer 87 132 Random Glucose 98 Calcium 7.7 L Total Bilirubin 1.1 H AST 51 H ALT 25 Alkaline Phosphatase 80 Total Protein 6.3 L Albumin 2.3 L Free T4 Opiates Screen Methadone Screen Barbiturate Screen Phencyclidine Screen Ur Amphetamines Screen MDMA (Ecstasy) Screen Benzodiazepines Screen Cocaine Screen U Marijuana (THC) Screen 02/13/19 02/14/19 02/14/19 20:45 05:40 05:40 WBC 8.8 RBC 3.85 L Hgb 13.2 Hct 39.0 MCV 101.4 H MCH 34.3 H MCHC 33.8 RDW 13.9 Plt Count 221 MPV 9.8 Absolute Neuts (auto) 6.1 Neutrophils % 68.9 Lymphocytes % 16.4 Monocytes % 11.8 H Eosinophils % 2.0 D Basophils % 0.9 D Nucleated RBC % 0 PTT (Actin FS) 27.9 Sodium Potassium Chloride Carbon Dioxide Anion Gap BUN Creatinine Est GFR (CKD-EPI)AfAm Est GFR (CKD-EPI)NonAf POC Glucometer Random Glucose Calcium Total Bilirubin AST ALT Alkaline Phosphatase Total Protein Albumin Free T4 Opiates Screen Negative Methadone Screen Positive A* Barbiturate Screen Negative Phencyclidine Screen Negative Ur Amphetamines Screen Negative MDMA (Ecstasy) Screen Negative Benzodiazepines Screen Positive A* Cocaine Screen Negative U Marijuana (THC) Screen Negative 02/14/19 02/14/19 02/14/19 05:40 05:40 05:58 WBC RBC Hgb Hct MCV MCH MCHC RDW Plt Count MPV Absolute Neuts (auto) Neutrophils % Lymphocytes % Monocytes % Eosinophils % Basophils % Nucleated RBC % PTT (Actin FS) Sodium 140 Potassium 3.4 L Chloride 102 Carbon Dioxide 33 H Anion Gap 5 L BUN 10.9 Creatinine 0.8 Est GFR (CKD-EPI)AfAm 104.90 Est GFR (CKD-EPI)NonAf 90.51 POC Glucometer 102 Random Glucose 96 Calcium 7.5 L Total Bilirubin 1.2 H AST 41 H ALT 22 Alkaline Phosphatase 69 Total Protein 5.7 L Albumin 2.0 L Free T4 2.54 H Opiates Screen Methadone Screen Barbiturate Screen Phencyclidine Screen Ur Amphetamines Screen MDMA (Ecstasy) Screen Benzodiazepines Screen Cocaine Screen U Marijuana (THC) Screen Current Medications Generic Name Dose Route Start Last Admin Trade Name Freq PRN Reason Stop Dose Admin Albuterol Sulfate 1 amp 02/11/19 18:58 Ventolin 0.083% Nebulizer Soln - NEB Q4H PRN SHORT OF BREATH/WHEEZING Albuterol/Ipratropium 1 amp 02/11/19 20:00 02/13/19 20:30 Duoneb - NEB 1 amp RQID [facility] Administration Alprazolam 0.25 mg 02/12/19 12:53 02/13/19 12:56 Xanax - PO 0.25 mg Q6H PRN Administration ANXIETY Aspirin 81 mg 02/12/19 10:00 02/13/19 09:19 Asa - PO 81 mg DAILY [facility] Administration Diltiazem HCl 10 mg 02/13/19 10:11 Cardizem Injection - IVPUSH Q4H PRN TACHYCARDIA Piperacillin Sod/Tazobactam 50 mls @ 100 mls/hr 02/13/19 12:00 02/14/19 01:10 Sod 3.375 gm/ Dextrose IVPB 100 mls/hr Q8H-IV [facility] Administration Protocol Dextrose/Sodium Chloride 1,000 mls @ 75 mls/hr 02/13/19 11:30 02/13/19 12:00 D5-1/2ns - IV 75 mls/hr ASDIR [facility] Administration Levothyroxine Sodium 100 mcg 02/14/19 07:00 02/14/19 06:14 Synthroid - PO Not Given DAILY@0700 [facility] Methadone HCl 80 mg 02/14/19 08:00 Dolophine - PO DAILY@0600 [facility] Metoprolol Succinate 25 mg 02/13/19 22:00 02/13/19 21:03 Toprol Xl - PO 25 mg BID [facility] Administration Potassium Chloride 40 meq 02/14/19 07:35 K-Dur - PO 02/14/19 07:36 ONCE ONE ASSESSMENT AND PLAN: This is a 68 year old man with a history of POTS, COPD, hypothyroidism, splenectomy, hepatitis C, opioid dependence who presented to the ED with cough, respiratory distress, and altered mental status. 1. Severe sepsis (tachycardia, tachypnea, leukocytosis, lactic acid 7.2) secondary to bilateral pneumonia - Afebrile; tachycardia, tachypnea, leukocytosis, lactic acidosis resolved - Blood cultures negative after 72 hours - Sputum culture growing Hemophilus - Continue Zosyn 2. Acute hypoxic and hypercapneic respiratory failure - Continue oxygen to maintain O2 saturation >90% - Continue DuoNeb, albuterol as needed 3. Demand ischemia - Echo shows normal LV, LVEF 60-65%, grade I diastolic dysfunction, normal RV , mild to moderate MR, mild TR, normal RVSP, mild , mild KS 4. PSVT - Continue Toprol XL 5. Opioid dependence - Continue Methadone 6. Hypothyroidism - Continue Synthroid 7. COPD 8. Hepatitis C 9. Dilated CBD on US - MRCP shows distended gallbladder with stones/sludge, mild dilatation of proximal intrahepatic ducts and CBD, no CBD stones - HIDA scan ordered 10. Postural orthostatic tachycardia syndrome
--- NOTE | 2019-02-14 08:58 | PN ---
Progress Note, Physician History of Present Illness: Denies chest pain, SOB or palpitations. No recurrence PSVT. - Current Medication List Current Medications: Active Medications Albuterol Sulfate (Ventolin 0.083% Nebulizer Soln -) 1 amp NEB Q4H PRN PRN Reason: SHORT OF BREATH/WHEEZING Albuterol/Ipratropium (Duoneb -) [address] [facility] Last Admin: 02/13/19 20:30 Dose: 1 amp Alprazolam (Xanax -) 0.25 mg PO Q6H PRN PRN Reason: ANXIETY Last Admin: 02/13/19 12:56 Dose: 0.25 mg Aspirin (Asa -) [address] [facility] Last Admin: 02/13/19 09:19 Dose: 81 mg Diltiazem HCl (Cardizem Injection -) 10 mg IVPUSH Q4H PRN PRN Reason: TACHYCARDIA Piperacillin Sod/Tazobactam (Sod 3.375 gm/ Dextrose) 50 mls @ 100 mls/hr IVPB Q8H-IV [facility]; Protocol Last Admin: 02/14/19 01:10 Dose: 100 mls/hr Dextrose/Sodium Chloride (D5-1/2ns -) 1,000 mls @ 75 mls/hr IV ASDIR [facility] Last Admin: 02/13/19 12:00 Dose: 75 mls/hr Levothyroxine Sodium (Synthroid -) 100 mcg PO DAILY@0700 [facility] Last Admin: 02/14/19 06:14 Dose: Not Given Methadone HCl (Dolophine -) 80 mg PO DAILY@0600 [facility] Metoprolol Succinate (Toprol Xl -) [address] [facility] Last Admin: 02/13/19 21:03 Dose: 25 mg Potassium Chloride (K-Dur -) 40 meq PO ONCE ONE Stop: 02/14/19 09:01 - Objective Vital Signs: Vital Signs Temperature 98.3 F 02/14/19 05:47 Pulse Rate 70 02/14/19 05:47 Respiratory Rate 18 02/14/19 05:47 Blood Pressure 163/93 02/14/19 05:47 O2 Sat by Pulse Oximetry (%) 97 02/14/19 00:17 Constitutional: Yes: No Distress, Calm, Thin Neck: Yes: Supple Cardiovascular: Yes: Regular Rate and Rhythm Respiratory: Yes: Regular, Diminished Gastrointestinal: Yes: Soft, Hypoactive Bowel Sounds Edema: No Labs: CBC, BMP 02/14/19 05:40 02/14/19 05:40 INR, PTT INR 1.64 (0.83-1.09) H 02/11/19 17:30 - ....Imaging EKG: Report Reviewed (Tele: [facility] w/o PSVT recurrence) Problem List - Problems (1) COPD (chronic obstructive pulmonary disease) Code(s): J44.9 - CHRONIC OBSTRUCTIVE PULMONARY DISEASE, UNSPECIFIED Qualifiers: COPD type: unspecified COPD Qualified Code(s): J44.9 - Chronic obstructive pulmonary disease, unspecified (2) Demand ischemia Code(s): I24.8 - OTHER FORMS OF ACUTE ISCHEMIC HEART DISEASE (3) Hypothyroidism Code(s): E03.9 - HYPOTHYROIDISM, UNSPECIFIED Qualifiers: Hypothyroidism type: unspecified Qualified Code(s): E03.9 - Hypothyroidism , unspecified (4) POTS (postural orthostatic tachycardia syndrome) Code(s): R00.0 - TACHYCARDIA, UNSPECIFIED; I95.1 - ORTHOSTATIC HYPOTENSION (5) Pneumonia Code(s): J18.9 - PNEUMONIA, UNSPECIFIED ORGANISM (6) Respiratory failure with hypercapnia Code(s): J96.92 - RESPIRATORY FAILURE, UNSPECIFIED WITH HYPERCAPNIA Qualifiers: Chronicity: unspecified Qualified Code(s): J96.92 - Respiratory failure, unspecified with hypercapnia Assessment/Plan 1. Acute respiratory failure with multilobar infiltrates suggest pneumonia 2. History of COPD with hypercapnea 3. Autonomic dysfunction (POTS) 4. Hypothyroidism 5. Opioid use currently on Methadone 6. Overdistended gallbladder 7. Elevated troponin due to demand ischemia 8. PSVT PLAN: 1. Continue Metoprolol ER 25 mg BID as tolerated. Cardizem IV as needed 2. Troponin plateauing 3. Empiric antibiotic coverage, BD, O2 and NIPPV as needed 4. Thyroid replacement therapy per endocrine 5. F/u echocardiography to assess LV/RV and valvular function 6. Continue Methadone but close follow up of QTc 7. Further GI work up needed to evaluate gallbladder distension and to rule out cirrhosis
[2019-02-14] MEDS ORDERED: POTASSIUM CHLORIDE TABS 20 MEQ TABLET.ER (FP) PO ONE (09:00)
[2019-02-14] MEDS ORDERED: METHADONE HCL 40 MG DISPERSABLE TABLET PO SCH (09:30)
[2019-02-14] MEDS: ASPIRIN 81 MG CHEWABLE TABLETS PO SCH (10:13)
[2019-02-14] MEDS: metoPROLOL SUCCINATE 25 MG TAB.SR.24H (FP) PO SCH ×2 (10:13→21:59)
[2019-02-14] MEDS: METHADONE HCL 40 MG DISPERSABLE TABLET PO SCH (10:22)
--- NOTE | 2019-02-14 10:50 | EKG ---
Test Reason : Blood Pressure : / mmHG Vent. Rate : 090 BPM Atrial Rate : 090 BPM P-R Int : 160 ms QRS Dur : 098 ms QT Int : 396 ms P-R-T Axes : 000 041 -25 degrees QTc Int : 484 ms NORMAL SINUS RHYTHM WITH SINUS ARRHYTHMIA NONSPECIFIC ST AND T WAVE ABNORMALITY PROLONGED QT ABNORMAL ECG WHEN COMPARED WITH ECG OF 11-FEB-2019 14:36, VENT. RATE HAS DECREASED PATIENT SITTING UP IN BED IN BED DURING EKG DUE TO BREATHING Confirmed by BRIANNA EM MD ([id number]) on 02/14/2019 10:50:16 AM Referred By: Valerie HUYNH Confirmed By:BRIANNA EM MD
--- NOTE | 2019-02-14 11:00 | EKG ---
Test Reason : Blood Pressure : / mmHG Vent. Rate : 107 BPM Atrial Rate : 107 BPM P-R Int : 156 ms QRS Dur : 094 ms QT Int : 376 ms P-R-T Axes : 048 026 027 degrees QTc Int : 501 ms SINUS TACHYCARDIA OTHERWISE NORMAL ECG NO PREVIOUS ECGS AVAILABLE Confirmed by BRIANNA EM MD ([id number]) on 02/14/2019 11:00:21 AM Referred By: Confirmed By:BRIANNA EM MD
--- NOTE | 2019-02-14 11:08 | PN ---
Progress Note, Physician History of Present Illness: pulmonary alert,no complaints sob improving,-cp,less cough. - Current Medication List Current Medications: Active Medications Albuterol Sulfate (Ventolin 0.083% Nebulizer Soln -) 1 amp NEB Q4H PRN PRN Reason: SHORT OF BREATH/WHEEZING Albuterol/Ipratropium (Duoneb -) 1 amp NEB RQID [facility] Last Admin: 02/13/19 20:30 Dose: 1 amp Alprazolam (Xanax -) 0.25 mg PO Q6H PRN PRN Reason: ANXIETY Last Admin: 02/13/19 12:56 Dose: 0.25 mg Aspirin (Asa -) 81 mg PO DAILY [facility] Last Admin: 02/14/19 10:13 Dose: 81 mg Diltiazem HCl (Cardizem Injection -) 10 mg IVPUSH Q4H PRN PRN Reason: TACHYCARDIA Enoxaparin Sodium (Lovenox -) 40 mg SQ DAILY [facility] Piperacillin Sod/Tazobactam (Sod 3.375 gm/ Dextrose) 50 mls @ 100 mls/hr IVPB Q8H-IV [facility]; Protocol Last Admin: 02/14/19 10:13 Dose: 100 mls/hr Levothyroxine Sodium (Synthroid -) 100 mcg PO DAILY@0700 [facility] Last Admin: 02/14/19 06:14 Dose: Not Given Methadone HCl (Dolophine -) 80 mg PO DAILY@0600 [facility] Last Admin: 02/14/19 10:22 Dose: 80 mg Metoprolol Succinate (Toprol Xl -) 25 mg PO BID [facility] Last Admin: 02/14/19 10:13 Dose: 25 mg - Objective Vital Signs: Vital Signs Temperature 97.2 F L 02/14/19 10:00 Pulse Rate 66 02/14/19 10:00 Respiratory Rate 20 02/14/19 10:00 Blood Pressure 175/82 H 02/14/19 10:00 O2 Sat by Pulse Oximetry (%) 97 02/14/19 00:17 Constitutional: Yes: Well Nourished, Calm Eyes: Yes: WNL HENT: Yes: WNL Neck: Yes: WNL Cardiovascular: Yes: Regular Rate and Rhythm, S1, S2 Respiratory: Yes: Diminished, Rales (few scattered crackles) Gastrointestinal: Yes: Normal Bowel Sounds, Soft Extremities: Yes: WNL Edema: No Assessment/Plan (1) COPD (chronic obstructive pulmonary disease) Code(s): J44.9 - CHRONIC OBSTRUCTIVE PULMONARY DISEASE, UNSPECIFIED (2) Demand ischemia Code(s): I24.8 - OTHER FORMS OF ACUTE ISCHEMIC HEART DISEASE (3) Hypothyroidism Code(s): E03.9 - HYPOTHYROIDISM, UNSPECIFIED (4) POTS (postural orthostatic tachycardia syndrome) Code(s): R00.0 - TACHYCARDIA, UNSPECIFIED; I95.1 - ORTHOSTATIC HYPOTENSION (5) Pneumonia Code(s): J18.9 - PNEUMONIA, UNSPECIFIED ORGANISM (6) Respiratory failure with hypercapnia Code(s): J96.92 - RESPIRATORY FAILURE, UNSPECIFIED WITH HYPERCAPNIA Qualifiers: Chronicity: unspecified Qualified Code(s): J96.92 - Respiratory failure, unspecified with hypercapnia BILATERAL PATCHY INFILTRATES SUPERIMPOSED UPON CHRONIC INTERSTITIAL LUNG CHANGES LIKELY DUE TO UNDERLYING COPD ACUTE ON CHRONIC HYPERCAPNEIC RESP FAILURE BASIS LIKELY SECONDARY TO METHADONE/ PNEUMONIA H/O SPLENECTOMY HEP C OPIATE ABUSE ISSUES O2 CONTINUE ANTIBIOTICS PAP REQUIRED BRONCHODILATORS F/U CHEST CT [address] GUAN Problem List - Problems (1) COPD (chronic obstructive pulmonary disease) Code(s): J44.9 - CHRONIC OBSTRUCTIVE PULMONARY DISEASE, UNSPECIFIED (2) Demand ischemia Code(s): I24.8 - OTHER FORMS OF ACUTE ISCHEMIC HEART DISEASE (3) Hypothyroidism Code(s): E03.9 - HYPOTHYROIDISM, UNSPECIFIED (4) POTS (postural orthostatic tachycardia syndrome) Code(s): R00.0 - TACHYCARDIA, UNSPECIFIED; I95.1 - ORTHOSTATIC HYPOTENSION (5) Pneumonia Code(s): J18.9 - PNEUMONIA, UNSPECIFIED ORGANISM (6) Respiratory failure with hypercapnia Code(s): J96.92 - RESPIRATORY FAILURE, UNSPECIFIED WITH HYPERCAPNIA Qualifiers: Chronicity: unspecified Qualified Code(s): J96.92 - Respiratory failure, unspecified with hypercapnia
--- NOTE | 2019-02-14 11:23 | ECHO ---
Name: BAIRONKIZZYDARWIN SCHAEFFER Exam:Adult Echocardiogram Study Date: 02/14/2019 08:48 AM Age: 68 yrs Height: 60 in Weight: 190 lb BSA: 1.8 m2 MMode/2D Measurements & Calculations IVSd: 0.97 cm Ao root diam: 3.5 cm LVIDd: 4.5 cm LA dimension: 3.8 cm LVIDs: 3.1 cm LVPWd: 1.4 cm LVPWs: 1.4 cm EDV(Teich): 93.7 ml ESV(Teich): 36.5 ml LVOT diam: 2.1 cm LAV (MOD-bp): 85.1 ml RV S Davey: 12.9 cm/sec Doppler Measurements & Calculations MV E max davey: 43.2 cm/sec Ao V2 max: 240.3 cm/sec MV A max davey: 75.7 cm/sec Ao max P.1 mmHg MV E/A: 0.57 Ao V2 mean: 174.2 cm/sec MV dec time: 0.11 sec Ao mean P.6 mmHg Ao V2 VTI: 50.3 cm RC(V,D): 1.5 cm2 LV V1 max P.2 mmHg TR max davey: 214.5 cm/sec LV V1 max: 102.3 cm/sec TR max P.4 mmHg PA V2 max: 112.0 cm/sec Med Peak E' Davey: 3.9 cm/sec PA max P.0 mmHg Med E/e': 11.0 Lat Peak E' Davey: 6.3 cm/sec Lat E/e': 6.8 Procedure A complete two-dimensional transthoracic echocardiogram was performed (2D, M-mode, Doppler and color flow Doppler). Left Ventricle The left ventricle is normal in size. Left ventricular systolic function is normal. Ejection Fraction = 60- 65%. Grade I diastolic dysfunction, (abnormal relaxation pattern). Ratio E/E'= 11. No regional wall m otion abnormalities noted. Right Ventricle The right ventricle is normal size. The right ventricular systolic function is normal. RV systolic TD I is 13 cm/s. Atria The left atrial size is normal. Right atrial size is normal. Mitral Valve The mitral valve is normal in structure and function. There is mild to moderate mitral regurgitation. Tricuspid Valve The tricuspid valve is normal in structure and function. There is mild tricuspid regurgitation. Right ventricular systolic pressure is normal. Aortic Valve There is mild aortic valve thickening. Mild valvular aortic stenosis. The calculated aortic valve are a using the continuity equation is 1.5 cm2. Aortic mean pressure gradient= 14 mmHg. No aortic regurgitation i s present. Pulmonic Valve The pulmonic valve is not well visualized. Mild pulmonic valvular regurgitation. Great Vessels The aortic root is normal size. Pericardium/Pleura There is no pericardial effusion. Interpretation Summary The left ventricle is normal in size. Left ventricular systolic function is normal. No regional wall motion abnormalities noted. Ejection Fraction = 60-65%. Grade I diastolic dysfunction, (abnormal relaxation pattern). Ratio E/E'= 11 The right ventricular systolic function is normal. The left atrial size is normal. Right atrial size is normal. There is mild to moderate mitral regurgitation. There is mild tricuspid regurgitation. Right ventricular systolic pressure is normal. There is mild aortic valve thickening. Mild valvular aortic stenosis. The calculated aortic valve area using the continuity equation is 1.5 cm2. Aortic mean pressure gradient= 14 mmHg No aortic regurgitation is present. Mild pulmonic valvular regurgitation. There is no pericardial effusion. Previous study is not available for comparison Khari Israel MD 02/14/2019 11:23 AM
--- NOTE | 2019-02-14 12:26 | PN ---
Progress Note, Physician History of Present Illness: stable improving wbc has normalized no issues - Current Medication List Current Medications: Active Medications Albuterol Sulfate (Ventolin 0.083% Nebulizer Soln -) 1 amp NEB Q4H PRN PRN Reason: SHORT OF BREATH/WHEEZING Albuterol/Ipratropium (Duoneb -) 1 amp NEB RQID [facility] Last Admin: 02/14/19 11:49 Dose: 1 amp Alprazolam (Xanax -) 0.25 mg PO Q6H PRN PRN Reason: ANXIETY Last Admin: 02/13/19 12:56 Dose: 0.25 mg Aspirin (Asa -) 81 mg PO DAILY [facility] Last Admin: 02/14/19 10:13 Dose: 81 mg Diltiazem HCl (Cardizem Injection -) 10 mg IVPUSH Q4H PRN PRN Reason: TACHYCARDIA Enoxaparin Sodium (Lovenox -) 40 mg SQ DAILY [facility] Piperacillin Sod/Tazobactam (Sod 3.375 gm/ Dextrose) 50 mls @ 100 mls/hr IVPB Q8H-IV [facility]; Protocol Last Admin: 02/14/19 10:13 Dose: 100 mls/hr Levothyroxine Sodium (Synthroid -) 100 mcg PO DAILY@0700 [facility] Last Admin: 02/14/19 06:14 Dose: Not Given Methadone HCl (Dolophine -) 80 mg PO DAILY@0600 [facility] Last Admin: 02/14/19 10:22 Dose: 80 mg Metoprolol Succinate (Toprol Xl -) 25 mg PO BID [facility] Last Admin: 02/14/19 10:13 Dose: 25 mg - Objective Vital Signs: Vital Signs Temperature 97.2 F L 02/14/19 10:00 Pulse Rate 66 02/14/19 10:00 Respiratory Rate 20 02/14/19 10:00 Blood Pressure 175/82 H 02/14/19 10:00 O2 Sat by Pulse Oximetry (%) 96 02/14/19 09:00 Constitutional: Yes: No Distress, Calm Cardiovascular: Yes: S1, S2 Respiratory: Yes: Regular, CTA Bilaterally, On Nasal O2 Gastrointestinal: Yes: Normal Bowel Sounds, Soft Musculoskeletal: Yes: WNL Extremities: Yes: WNL Neurological: Yes: Alert, Oriented Psychiatric: Yes: Alert, Oriented Labs: CBC, BMP 02/14/19 05:40 02/14/19 05:40 INR, PTT INR 1.64 (0.83-1.09) H 02/11/19 17:30 Assessment/Plan Problem List - Problems (1) COPD (chronic obstructive pulmonary disease) Code(s): J44.9 - CHRONIC OBSTRUCTIVE PULMONARY DISEASE, UNSPECIFIED (2) Demand ischemia Code(s): I24.8 - OTHER FORMS OF ACUTE ISCHEMIC HEART DISEASE (3) Hypothyroidism Code(s): E03.9 - HYPOTHYROIDISM, UNSPECIFIED (4) POTS (postural orthostatic tachycardia syndrome) Code(s): R00.0 - TACHYCARDIA, UNSPECIFIED; I95.1 - ORTHOSTATIC HYPOTENSION (5) Pneumonia Code(s): J18.9 - PNEUMONIA, UNSPECIFIED ORGANISM (6) Respiratory failure with hypercapnia Code(s): J96.92 - RESPIRATORY FAILURE, UNSPECIFIED WITH HYPERCAPNIA Qualifiers: Chronicity: unspecified Qualified Code(s): J96.92 - Respiratory failure, unspecified with hypercapnia leukocytosis plan sputum cx noted await for identification of the organism resp therapy rest as per the team abx
[2019-02-14] MEDS: ENOXAPARIN NA (PORCINE) 40 MG/0.4 ML DISP.SYRIN SQ SCH (13:20)
--- NOTE | 2019-02-14 13:30 | PN ---
Progress Note (short form) - Note Progress Note: GI f/u Pt feels ok denies abdominal pain Vital Signs Temp 97.2 F L 02/14/19 10:00 Pulse 66 02/14/19 10:00 Resp 20 02/14/19 10:00 BP 175/82 H 02/14/19 10:00 Pulse Ox 96 02/14/19 09:00 NAD abd soft NT ND Hepatic Panel Total Bilirubin 1.2 mg/dL (0.2-1) H 02/14/19 05:40 Direct Bilirubin 0.5 mg/dL (0.0-0.2) H 02/12/19 05:15 AST 41 U/L (15-37) H 02/14/19 05:40 ALT 22 U/L (13-61) 02/14/19 05:40 Alkaline Phosphatase 69 U/L (45-117) 02/14/19 05:40 Albumin 2.0 g/dl (3.4-5.0) L 02/14/19 05:40 CBC, BMP 02/14/19 05:40 02/14/19 05:40 MRCP negative for CBD obstruction May be related to suboxone/methadone use Await AMARILIS
--- NOTE | 2019-02-14 15:21 | PN ---
Progress Note, AUTOMATIC OUTSOLE CUTTER - Note Progress Note: Consultation received: AUTOMATIC OUTSOLE CUTTER attempted 2x to evaluate swallow status. Pt was out of room for medical procedure in a.m. This p.m., charge master analyst reported that pt would be going down to for another procedure. Pt must remain NPO for this procedure. AUTOMATIC OUTSOLE CUTTER unable to evaluate swallow status at this time. AUTOMATIC OUTSOLE CUTTER will try again at another time.
[2019-02-14] MEDS: ALPRAZolam 0.25 MG TABLET PO PRN (21:59)
[2019-02-15] MEDS ORDERED: PIPERACILLIN/TAZOBACTAM 3.375 GM VIAL IVPB ONE ×3 (01:01→18:19)
[2019-02-15] MEDS ORDERED: DEXTROSE 5%-WATER - 50 ML IVPB ONE ×3 (01:02→18:19)
[2019-02-15] MEDS: PIPERACILLIN/TAZOB 3.375 GM 3.375 GM in DEXTROSE 5%-WATER - 50 ML IVPB SCH ×3 (01:20→18:41)
[2019-02-15] MEDS: METHADONE HCL 40 MG DISPERSABLE TABLET PO SCH (06:27)
[2019-02-15] MEDS: LEVOTHYROXINE NA 100 MCG TABLET (FP) PO SCH (06:27)
[2019-02-15 06:32] LABS: HEMATOCRIT 40.1 % (35.4-49); HEMOGLOBIN 13.5 GM/dL (11.7-16.9); MCH 33.9 pg (25.7-33.7); MCHC 33.6 g/dl (32.0-35.9); MEAN PLT VOLUME 10.1 fl (7.5-11.1); PLATELET COUNT 233 K/MM3 (134-434); RBC 3.97 M/mm3 (4.00-5.60); WHITE BLOOD COUNT 8.5 K/mm3 (4.0-10.0)
[2019-02-15 07:05] LABS: BLOOD UREA NITROGEN 9.4 mg/dL (7-18); CALCIUM 7.7 mg/dL (8.5-10.1); CREATININE 0.7 mg/dL (0.55-1.3); MAGNESIUM 1.4 mg/dL (1.8-2.4); POTASSIUM 3.6 mmol/L (3.5-5.1)
[2019-02-15] MEDS ORDERED: MAGNESIUM SULF 50% (8.12 MEQ/2 ML-1 GM VIAL) IVPB ONE (07:08)
--- NOTE | 2019-02-15 08:04 | PN ---
Progress Note (short form) - Note Progress Note: HPI: No events overnight. Narrow complex PSVT on telemetry monioring. Pt admits breathing is improved. No fevers/chills, palpitations, chest pain, abdominal pain, diarrhea/constipation. Cough decreasing in frequency; nonproductive at this point Vital Signs Temperature 98.3 F 02/14/19 05:47 Pulse Rate 70 02/14/19 05:47 Respiratory Rate 18 02/14/19 05:47 Blood Pressure 163/93 02/14/19 05:47 O2 Sat by Pulse Oximetry (%) 97 02/14/19 00:17 PE: Gen: NAD, awake, alert, oriented x3 HEENT: NC/AT, AMAYA, MMM Neck: No JVD Lungs: scattered rhonchi, no rales, no accessory muscle use CARD: RRR no murmurs appreciated ABD: soft, tense, nontender, hypoactive BS EXT: 1+ pitting edema b/l near ankles, strong pulses b/l CBC, BMP 02/15/19 06:00 02/15/19 05:46 Hepatic Panel Total Bilirubin 1.2 mg/dL (0.2-1) H 02/14/19 05:40 Direct Bilirubin 0.5 mg/dL (0.0-0.2) H 02/12/19 05:15 AST 41 U/L (15-37) H 02/14/19 05:40 ALT 22 U/L (13-61) 02/14/19 05:40 Alkaline Phosphatase 69 U/L (45-117) 02/14/19 05:40 Albumin 2.0 g/dl (3.4-5.0) L 02/14/19 05:40 Active Medications Albuterol Sulfate (Ventolin 0.083% Nebulizer Soln -) 1 amp NEB Q4H PRN PRN Reason: SHORT OF BREATH/WHEEZING Albuterol/Ipratropium (Duoneb -) 1 amp NEB RQID [facility] Last Admin: 02/13/19 20:30 Dose: 1 amp Alprazolam (Xanax -) 0.25 mg PO Q6H PRN PRN Reason: ANXIETY Last Admin: 02/13/19 12:56 Dose: 0.25 mg Aspirin (Asa -) 81 mg PO DAILY [facility] Last Admin: 02/14/19 10:13 Dose: 81 mg Diltiazem HCl (Cardizem Injection -) 10 mg IVPUSH Q4H PRN PRN Reason: TACHYCARDIA Piperacillin Sod/Tazobactam (Sod 3.375 gm/ Dextrose) 50 mls @ 100 mls/hr IVPB Q8H-IV [facility]; Protocol Last Admin: 02/14/19 10:13 Dose: 100 mls/hr Dextrose/Sodium Chloride (D5-1/2ns -) 1,000 mls @ 75 mls/hr IV ASDIR [facility] Last Admin: 02/13/19 12:00 Dose: 75 mls/hr Levothyroxine Sodium (Synthroid -) 100 mcg PO DAILY@0700 [facility] Last Admin: 02/14/19 06:14 Dose: Not Given Methadone HCl (Dolophine -) 80 mg PO DAILY@0600 [facility] Last Admin: 02/14/19 10:22 Dose: 80 mg Metoprolol Succinate (Toprol Xl -) 25 mg PO BID [facility] Last Admin: 02/14/19 10:13 Dose: 25 mg Microbiology 02/11/19 15:52 Blood - Peripheral Venous Blood Culture - Preliminary NO GROWTH OBTAINED AFTER 48 HOURS, INCUBATION TO CONTINUE FOR 3 DAYS. 02/11/19 15:52 Blood - Peripheral Venous Blood Culture - Preliminary NO GROWTH OBTAINED AFTER 48 HOURS, INCUBATION TO CONTINUE FOR 3 DAYS. 02/11/19 17:55 Sputum - Expectorated Gram Stain - Final 02/11/19 17:55 Sputum - Expectorated Sputum Culture - Preliminary NORMAL RESPIRATORY ROSA ISELA 02/11/19 16:34 Urine - Urine - Catheterized Urine Culture - Final NO GROWTH OBTAINED Assessment and Plan: Severe sepsis 2/2 Multifocal pneumonia (improving) Acute hypercapenic hypoxic respiratory distress (improved) Cystic duct obstruction Lactic acidosis (resolved) Demand ischemia (improving) PSVT episodes Hyperbilirubinemia Opioid Use Disorder Macrocytosis Hyperthyroidism History of COPD --Severe sepsis and respiratory distress improving: --Continue Zosyn 3.375 q8h IVPB for now --Possibility of cholecystostomy tube with 6-8 week follow-up once PNA resolved --Will discuss with GI/Surg about plan of action as patient's hospital course for pna is starting to conclude --Echocardiogram pending --Titrate settings to maintain SPO2 >88% --Duoneb QID scheduled with Albuterol PRN --Can likely transition to Spiriva + Symbicort high dose by end of hospital stay --Pt decreased to Synthroid 100mcg qdaily as pt's TFTs notable for hyperthyroidism --Demand ischemia in setting of sepsis and PSVT --Continue ASA 81mg qdaily --Continue Metoprolol 25mg BID PO --Continue Cardizem IVP for breakthrough --Continue Methadone 80mg daily as confirmed by pt's [facility] FEN: Fluids: Tolerating PO Electroltye abnormalities: none Nutrition: Cardiac diet PPX: DVT - Heparin TID GI - Not indicated Dispo: Telemetry monitoring Case discussed with Dr. Franklin Spencer, DO - IM PGY-3
[2019-02-15] MEDS: ALBUTEROL SO4 2.5/IPRATROPIUM 0.5 INH SOL 3 ML VIAL.NEB. NEB SCH (09:00)
--- NOTE | 2019-02-15 10:20 | PN ---
Progress Note, Physician History of Present Illness: pulmonary alert,less dyspneic,+ dry cough - Current Medication List Current Medications: Active Medications Albuterol Sulfate (Ventolin 0.083% Nebulizer Soln -) 1 amp NEB Q4H PRN PRN Reason: SHORT OF BREATH/WHEEZING Albuterol/Ipratropium (Duoneb -) 1 amp NEB RQID [facility] Last Admin: 02/15/19 09:00 Dose: 1 amp Alprazolam (Xanax -) 0.25 mg PO Q6H PRN PRN Reason: ANXIETY Last Admin: 02/14/19 21:59 Dose: 0.25 mg Aspirin (Asa -) 81 mg PO DAILY [facility] Last Admin: 02/14/19 10:13 Dose: 81 mg Diltiazem HCl (Cardizem Injection -) 10 mg IVPUSH Q4H PRN PRN Reason: TACHYCARDIA Enoxaparin Sodium (Lovenox -) 40 mg SQ DAILY [facility] Last Admin: 02/14/19 13:20 Dose: 40 mg Piperacillin Sod/Tazobactam (Sod 3.375 gm/ Dextrose) 50 mls @ 100 mls/hr IVPB Q8H-IV [facility]; Protocol Last Admin: 02/15/19 01:20 Dose: 100 mls/hr Levothyroxine Sodium (Synthroid -) 100 mcg PO DAILY@0700 [facility] Last Admin: 02/15/19 06:27 Dose: 100 mcg Methadone HCl (Dolophine -) 80 mg PO DAILY@0600 [facility] Last Admin: 02/15/19 06:27 Dose: 80 mg Metoprolol Succinate (Toprol Xl -) 25 mg PO BID [facility] Last Admin: 02/14/19 21:59 Dose: 25 mg - Objective Vital Signs: Vital Signs Temperature 98.1 F 02/15/19 06:00 Pulse Rate 80 02/15/19 06:00 Respiratory Rate 20 02/15/19 06:00 Blood Pressure 175/85 H 02/15/19 06:00 O2 Sat by Pulse Oximetry (%) 93 L 02/14/19 21:00 Constitutional: Yes: Well Nourished, Calm Eyes: Yes: WNL HENT: Yes: WNL Neck: Yes: WNL Cardiovascular: Yes: Regular Rate and Rhythm, S1, S2 Respiratory: Yes: Rales (agustin crackkles) Gastrointestinal: Yes: Normal Bowel Sounds, Soft Extremities: Yes: WNL Edema: No Labs: CBC, BMP 02/15/19 06:00 02/15/19 05:46 INR, PTT INR 1.64 (0.83-1.09) H 02/11/19 17:30 Assessment/Plan (1) COPD (chronic obstructive pulmonary disease) Code(s): J44.9 - CHRONIC OBSTRUCTIVE PULMONARY DISEASE, UNSPECIFIED (2) Demand ischemia Code(s): I24.8 - OTHER FORMS OF ACUTE ISCHEMIC HEART DISEASE (3) Hypothyroidism Code(s): E03.9 - HYPOTHYROIDISM, UNSPECIFIED (4) POTS (postural orthostatic tachycardia syndrome) Code(s): R00.0 - TACHYCARDIA, UNSPECIFIED; I95.1 - ORTHOSTATIC HYPOTENSION (5) Pneumonia Code(s): J18.9 - PNEUMONIA, UNSPECIFIED ORGANISM (6) Respiratory failure with hypercapnia Code(s): J96.92 - RESPIRATORY FAILURE, UNSPECIFIED WITH HYPERCAPNIA Qualifiers: Chronicity: unspecified Qualified Code(s): J96.92 - Respiratory failure, unspecified with hypercapnia BILATERAL PATCHY INFILTRATES SUPERIMPOSED UPON CHRONIC INTERSTITIAL LUNG CHANGES LIKELY DUE TO UNDERLYING COPD ACUTE ON CHRONIC HYPERCAPNEIC RESP FAILURE BASIS LIKELY SECONDARY TO METHADONE/ PNEUMONIA H/O SPLENECTOMY HEP C OPIATE ABUSE ISSUES O2 CONTINUE ANTIBIOTICS BRONCHODILATORS F/U CHEST CT [address] GUAN Problem List - Problems (1) COPD (chronic obstructive pulmonary disease) Code(s): J44.9 - CHRONIC OBSTRUCTIVE PULMONARY DISEASE, UNSPECIFIED (2) Demand ischemia Code(s): I24.8 - OTHER FORMS OF ACUTE ISCHEMIC HEART DISEASE (3) Hypothyroidism Code(s): E03.9 - HYPOTHYROIDISM, UNSPECIFIED (4) POTS (postural orthostatic tachycardia syndrome) Code(s): R00.0 - TACHYCARDIA, UNSPECIFIED; I95.1 - ORTHOSTATIC HYPOTENSION (5) Pneumonia Code(s): J18.9 - PNEUMONIA, UNSPECIFIED ORGANISM (6) Respiratory failure with hypercapnia Code(s): J96.92 - RESPIRATORY FAILURE, UNSPECIFIED WITH HYPERCAPNIA Qualifiers: Chronicity: unspecified Qualified Code(s): J96.92 - Respiratory failure, unspecified with hypercapnia
--- NOTE | 2019-02-15 10:31 | PN ---
Progress Note, Physician Chief Complaint: Not in distress History of Present Illness: Patient was seen and examined. Awake and alert. Chart was reviewed Denies chest pain, SOB or palpitations Episodes of narrow complex tachycardia suggesting PSVT but less - Current Medication List Current Medications: Active Medications Albuterol Sulfate (Ventolin 0.083% Nebulizer Soln -) 1 amp NEB Q4H PRN PRN Reason: SHORT OF BREATH/WHEEZING Albuterol/Ipratropium (Duoneb -) 1 amp NEB RQID [facility] Last Admin: 02/15/19 09:00 Dose: 1 amp Alprazolam (Xanax -) 0.25 mg PO Q6H PRN PRN Reason: ANXIETY Last Admin: 02/14/19 21:59 Dose: 0.25 mg Aspirin (Asa -) 81 mg PO DAILY [facility] Last Admin: 02/14/19 10:13 Dose: 81 mg Diltiazem HCl (Cardizem Injection -) 10 mg IVPUSH Q4H PRN PRN Reason: TACHYCARDIA Enoxaparin Sodium (Lovenox -) 40 mg SQ DAILY [facility] Last Admin: 02/14/19 13:20 Dose: 40 mg Piperacillin Sod/Tazobactam (Sod 3.375 gm/ Dextrose) 50 mls @ 100 mls/hr IVPB Q8H-IV [facility]; Protocol Last Admin: 02/15/19 01:20 Dose: 100 mls/hr Levothyroxine Sodium (Synthroid -) 100 mcg PO DAILY@0700 [facility] Last Admin: 02/15/19 06:27 Dose: 100 mcg Methadone HCl (Dolophine -) 80 mg PO DAILY@0600 [facility] Last Admin: 02/15/19 06:27 Dose: 80 mg Metoprolol Succinate (Toprol Xl -) 25 mg PO BID [facility] Last Admin: 02/14/19 21:59 Dose: 25 mg - Objective Vital Signs: Vital Signs Temperature 98.1 F 02/15/19 06:00 Pulse Rate 80 02/15/19 06:00 Respiratory Rate 20 02/15/19 06:00 Blood Pressure 175/85 H 02/15/19 06:00 O2 Sat by Pulse Oximetry (%) 93 L 02/14/19 21:00 Eyes: Yes: PERRL HENT: Yes: Atraumatic Neck: Yes: Supple Cardiovascular: Yes: Regular Rate and Rhythm, S1, S2 Respiratory: Yes: Diminished Gastrointestinal: Yes: Normal Bowel Sounds, Soft. No: Tenderness Edema: Yes Additional Findings/Remarks: - Review of Systems Constitutional: denies: Chills, Fever Cardiovascular: reports: Shortness of Breath. denies: Chest Pain, Palpitations Respiratory: reports: Cough, SOB, SOB on Exertion. denies: Hemoptysis, Orthopnea, PND Gastrointestinal: denies: Abdominal Pain, Constipation, Diarrhea, Melena, Nausea , Rectal Bleeding, Vomiting Genitourinary: denies: Dysuria, Hematuria Musculoskeletal: denies: Back Pain, Joint Pain Neurological: denies: Dizziness, Headache, Seizure, Syncope Labs: CBC, BMP 02/15/19 06:00 02/15/19 05:46 Problem List - Problems (1) Sepsis Code(s): A41.9 - SEPSIS, UNSPECIFIED ORGANISM (2) Pneumonia Code(s): J18.9 - PNEUMONIA, UNSPECIFIED ORGANISM (3) POTS (postural orthostatic tachycardia syndrome) Code(s): R00.0 - TACHYCARDIA, UNSPECIFIED; I95.1 - ORTHOSTATIC HYPOTENSION (4) COPD (chronic obstructive pulmonary disease) Code(s): J44.9 - CHRONIC OBSTRUCTIVE PULMONARY DISEASE, UNSPECIFIED Qualifiers: COPD type: unspecified COPD Qualified Code(s): J44.9 - Chronic obstructive pulmonary disease, unspecified (5) Hypothyroidism Code(s): E03.9 - HYPOTHYROIDISM, UNSPECIFIED Qualifiers: Hypothyroidism type: unspecified Qualified Code(s): E03.9 - Hypothyroidism , unspecified (6) Demand ischemia Code(s): I24.8 - OTHER FORMS OF ACUTE ISCHEMIC HEART DISEASE (7) Respiratory failure with hypercapnia Code(s): J96.92 - RESPIRATORY FAILURE, UNSPECIFIED WITH HYPERCAPNIA Qualifiers: Chronicity: unspecified Qualified Code(s): J96.92 - Respiratory failure, unspecified with hypercapnia Assessment/Plan 1. Acute respiratory failure with multilobar infiltrates suggest pneumonia 2. History of COPD with hypercapnea 3. Autonomic dysfunction (POTS) 4. Hypothyroidism 5. Opioid use currently on Methadone 6. Overdistended gallbladder 7. Elevated troponin due to demand ischemia 8. PSVT 9. Mild 10. Mild to moderate MR PLAN: 1. Continue Metoprolol ER 25 mg BID as tolerated. Cardizem IV as needed 2. Empiric antibiotic coverage 3. NIPPV as needed 4. Thyroid replacement therapy 5. Echocardiography was reviewed 7. Continue Methadone but close follow up of QTc 8. Further GI work up needed to evaluate gallbladder distension. HIDA scan done. GI follow up Further plans are to follow Khari Israel MD
[2019-02-15] MEDS: ENOXAPARIN NA (PORCINE) 40 MG/0.4 ML DISP.SYRIN SQ SCH (10:37)
[2019-02-15] MEDS: metoPROLOL SUCCINATE 25 MG TAB.SR.24H (FP) PO SCH ×2 (10:37→21:17)
[2019-02-15] MEDS: ASPIRIN 81 MG CHEWABLE TABLETS PO SCH (10:37)
--- NOTE | 2019-02-15 10:51 | CONSULT ---
Admitting History and Physical - Primary Care Physician PCP: Edgar Reid - Admission History of Present Illness: Per EMR- 02/11/19- 68M with h/o of ?autonomic dysfunction, COPD, suspected underlying heart disease and heart failure who presents today with his for altered mentation and respiratory distress. 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 Pt's noted today that he was less than arousable with altered mentation and called ambulance. Upon arrival pt was noted to be hypoxic to 77% and was brought immediately to the ER. Pt upon arrival again had only arousal to noxious stimuli and during his workup pt was found to have multifocal pneumonia and hypercapnea. Pt was initiated on antibiotic therapy and NIPPV. 02/14-Severe sepsis and respiratory distress improving Per Pulmonary-BILATERAL PATCHY INFILTRATES SUPERIMPOSED UPON CHRONIC INTERSTITIAL LUNG CHANGES LIKELY DUE TO UNDERLYING COPD ACUTE ON CHRONIC HYPERCAPNEIC RESP FAILURE BASIS LIKELY SECONDARY TO METHADONE/ PNEUMONIA H/O SPLENECTOMY HEP C OPIATE ABUSE ISSUES On Reg diet/thin liquids Selected Entries 02/12/19 02/12/19 02/13/19 14:00 18:00 13:42 Breakfast Diet Tolerated Lunch 50% NPO Supper NPO Temperature 02/13/19 02/14/19 02/14/19 18:00 00:54 05:47 Breakfast Diet Tolerated Lunch Supper 50% Temperature 98.7 F 98.3 F 02/14/19 02/14/19 02/14/19 10:00 10:38 14:00 Breakfast 0 Diet Tolerated Lunch 0 Supper Temperature 97.2 F L 98.0 F 02/14/19 02/14/19 02/15/19 18:38 20:05 00:00 Breakfast Diet Tolerated Lunch Supper 75% Temperature 98.1 F 97.8 F 02/15/19 02/15/19 06:00 10:23 Breakfast 50% Diet Tolerated Fair Lunch Supper Temperature 98.1 F Laboratory Tests 02/12/19 02/14/19 02/15/19 05:15 05:40 06:00 WBC 15.5 H 8.8 8.5 History Source: Patient, Medical Record - Past Medical History 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 No: O2 Dependent Gastrointestinal: Yes: Other (hep c) Hepatobiliary: Yes: Hepatitis C Renal/: No: Renal Failure Heme/Onc: No: Anemia Psych: Yes: Anxiety Musculoskeletal: No: Chronic low back pain Endocrine: Yes: Hypothyroidism - Past Surgical History Past Surgical History: Yes: Splenectomy (Trauma with partial hepatectomy ) - Smoking History Smoking history: Current every day smoker Have you smoked in the past 12 months: Yes Aproximately how many cigarettes per day: 10 - Alcohol/Substance Use Hx Alcohol Use: No History of Substance Use: reports: Heroin - Social History ADL: Family Assistance History of Recent Travel: No History - Admission Reason For Visit: RESPIRATORY FAILURE WITH HYPERCAPNIA;SEVERE SEPSIS - Diagnostics X-ray: Report Reviewed CT Scan: Report Reviewed - General Mental Status: Alert and Oriented, Awake and Alert, Able to Follow Commands Attention: Intact Ability to Follow Directions: Excellent Head/Neck Control: WFL - Hearing Hearing: Normal Speech Evaluation - Communication Primary Language: ESTONIAN Communication: Yes: Within Normal Limits Oral Expression Ability: Yes: No Impairment - Speech Production Able to Make Needs Known: Yes: WNL Intelligibility: Yes: WNL - Speech Characteristics Voice Loudness: Normal Voice Pitch: Yes: Normal Voice Phonatory-based Quality: Yes: Normal Speech Pattern: Normal Speech Clarity: < 100% Nasal Resonance: Normal Articulation: Yes: Precise Rate of Speech: Intact - Language/Auditory Comprehension Follows: Yes: 2 Stage Simple Commands Observation: Able to respond to yes/no queries: Yes, Yes/No Confusion: No, Comprehends Conversational Speech: Yes - Language/Verbal Expression Able to Respond to Simple Queries: Yes: WNL Able to Communicate Wants and Needs: Yes: WNL Functional Communication Status: Yes: WNL - Swallow Evaluation/Bedside Assessment Current Nutritional Intake: Regular, Thin Liquids Oral Secretions: Yes: WFL Dentition: Yes: Edentulous (upper, doesnt wear his dentures), Missing Teeth Facial Symmetry at Rest: Symmetrical Facial Symmetry on Retraction: Symmetrical Facial Movement: Controlled Sensation: Normal Against Resistance Opening: Normal Against Resistance Closing: Normal Pucker Lips: Normal Smile: Normal Lingual Movement: Normal, Symmetric Lingual Speed of Movement: Normal Lingual Movement Strgth Against Opposition: Normal Lingual Movement Characteristics: Normal Velopharyngeal Movement: Normal Laryngeal Elevation: WFL Laryngeal Movement: Able to Palpate Rate of Intake: WFL Bolus Size: WFL Labial Seal: WFL Chewing: WFL (fairly efficient with poor dentition) Oral Prep Time: WFL A-P Transit: WFL Pocketing: None Timing of Swallow: WFL Coughing/Throat Clear: No Change in Voice: No Recommendations - Speech Evaluation, Impression/Plan Impression: Verbal. Speech intact. Swallowing overtly intact - Dysphagia Impressions/Plan Swallowing Skills: WFL Dysphagia Impressions: Minimal Impairment *Silent aspiration: cannot be R/O at bedside Dysphagia Treatment Plan: OOB for meals, OOB for 1 h. after meals Recommendations: Modified Barium Swallow (if aspiration suspected) - Recommendations Diet Consistency: Regular (soft, easy to chew) Medication Administration: Whole with water Liquids: Thin Liquids
--- NOTE | 2019-02-15 11:26 | PN ---
Teaching Attending Note Name of Resident: Bridger Spencer ATTENDING PHYSICIAN STATEMENT I saw and evaluated the patient. I reviewed the resident's note and discussed the case with the resident. I agree with the resident's findings and plan as documented. SUBJECTIVE: Patient reports he is having a cough that is non-productive and better than at admission. OBJECTIVE: Vital Signs Period Temp Pulse Resp BP Sys/Bashir Pulse Ox Last 24 Hr 97.8 F-98.1 F 68-82 20-20 166-179/79-88 93 HEART: S1S2, RRR LUNGS: Scattered bilateral crackles ABDOMEN: Soft, non-tender, non-distended, normal BS EXTREMITIES: Trace edema Laboratory Results - last 24 hr 02/12/19 02/14/19 02/15/19 14:00 05:40 05:46 WBC RBC Hgb Hct MCV MCH MCHC RDW Plt Count MPV Sodium 140 Potassium 3.6 Chloride 104 Carbon Dioxide 31 Anion Gap 5 L BUN 9.4 Creatinine 0.7 Est GFR (CKD-EPI)AfAm 110.82 Est GFR (CKD-EPI)NonAf 95.61 Random Glucose 83 Calcium 7.7 L Magnesium 1.4 L Total T3 64.00 L HSV I DNA Quant (PCR) Negative HSV II DNA Quant (PCR) Negative 02/15/19 06:00 WBC 8.5 RBC 3.97 L Hgb 13.5 Hct 40.1 MCV 101.0 H MCH 33.9 H MCHC 33.6 RDW 14.0 Plt Count 233 MPV 10.1 Sodium Potassium Chloride Carbon Dioxide Anion Gap BUN Creatinine Est GFR (CKD-EPI)AfAm Est GFR (CKD-EPI)NonAf Random Glucose Calcium Magnesium Total T3 HSV I DNA Quant (PCR) HSV II DNA Quant (PCR) Current Medications Generic Name Dose Route Start Last Admin Trade Name Freq PRN Reason Stop Dose Admin Alprazolam 0.25 mg 02/12/19 12:53 02/14/19 21:59 Xanax - PO 0.25 mg Q6H PRN Administration ANXIETY Aspirin 81 mg 02/12/19 10:00 02/15/19 10:37 Asa - PO 81 mg DAILY [facility] Administration Budesonide/Formoterol Fumarate 2 puff 02/15/19 22:00 Symbicort 160/4.5mcg - IH BID [facility] Diltiazem HCl 10 mg 02/13/19 10:11 Cardizem Injection - IVPUSH Q4H PRN TACHYCARDIA Enoxaparin Sodium 40 mg 02/14/19 11:00 02/15/19 10:37 Lovenox - SQ 40 mg DAILY [facility] Administration Piperacillin Sod/Tazobactam 50 mls @ 100 mls/hr 02/13/19 12:00 02/15/19 10:37 Sod 3.375 gm/ Dextrose IVPB 100 mls/hr Q8H-IV [facility] Administration Protocol Levothyroxine Sodium 100 mcg 02/14/19 07:00 02/15/19 06:27 Synthroid - PO 100 mcg DAILY@0700 [facility] Administration Methadone HCl 80 mg 02/14/19 09:45 02/15/19 06:27 Dolophine - PO 80 mg DAILY@0600 [facility] Administration Metoprolol Succinate 25 mg 02/13/19 22:00 02/15/19 10:37 Toprol Xl - PO 25 mg BID [facility] Administration Tiotropium [place] 2 puff 02/16/19 10:00 Spiriva Respimat IH DAILY [facility] ASSESSMENT AND PLAN: This is a 68 year old man with a history of POTS, COPD, hypothyroidism, splenectomy, hepatitis C, opioid dependence who presented to the ED with cough, respiratory distress, and altered mental status. 1. Severe sepsis (tachycardia, tachypnea, leukocytosis, lactic acid 7.2) secondary to bilateral pneumonia - Afebrile; tachycardia, tachypnea, leukocytosis, lactic acidosis resolved - Blood cultures negative after 72 hours - Sputum culture growing Hemophilus - Continue Zosyn 2. Acute hypoxic and hypercapneic respiratory failure - Continue oxygen to maintain O2 saturation >90% - Continue DuoNeb, albuterol as needed 3. Demand ischemia - Echo shows normal LV, LVEF 60-65%, grade I diastolic dysfunction, normal RV , mild to moderate MR, mild TR, normal RVSP, mild , mild DE 4. PSVT - Continue Toprol XL 5. Opioid dependence - Continue Methadone 6. Hypothyroidism - Continue Synthroid 7. COPD - Symbicort, Spiriva started 8. Hepatitis C 9. Dilated CBD on US - MRCP shows distended gallbladder with stones/sludge, mild dilatation of proximal intrahepatic ducts and CBD, no CBD stones - HIDA scan shows possible cystic duct obstruction/acute cholecystitis - surgery recommended cholecystostomy x 6-8 weeks as patient would be high risk for surgery given sepsis/pneumonia, prior splenectomy and partial hepatectomy 10. Postural orthostatic tachycardia syndrome
--- NOTE | 2019-02-15 12:14 | PN ---
Progress Note, Physician History of Present Illness: Patient seen and examined. Awake, alert, tolerating diet. No abdominal pain. - Current Medication List Current Medications: Active Medications Alprazolam (Xanax -) 0.25 mg PO Q6H PRN PRN Reason: ANXIETY Last Admin: 02/14/19 21:59 Dose: 0.25 mg Aspirin (Asa -) 81 mg PO DAILY [facility] Last Admin: 02/15/19 10:37 Dose: 81 mg Budesonide/Formoterol Fumarate (Symbicort 160/4.5mcg -) 2 puff IH BID [facility] Diltiazem HCl (Cardizem Injection -) 10 mg IVPUSH Q4H PRN PRN Reason: TACHYCARDIA Enoxaparin Sodium (Lovenox -) 40 mg SQ DAILY [facility] Last Admin: 02/15/19 10:37 Dose: 40 mg Piperacillin Sod/Tazobactam (Sod 3.375 gm/ Dextrose) 50 mls @ 100 mls/hr IVPB Q8H-IV [facility]; Protocol Last Admin: 02/15/19 10:37 Dose: 100 mls/hr Levothyroxine Sodium (Synthroid -) 100 mcg PO DAILY@0700 [facility] Last Admin: 02/15/19 06:27 Dose: 100 mcg Methadone HCl (Dolophine -) 80 mg PO DAILY@0600 [facility] Last Admin: 02/15/19 06:27 Dose: 80 mg Metoprolol Succinate (Toprol Xl -) 25 mg PO BID [facility] Last Admin: 02/15/19 10:37 Dose: 25 mg Tiotropium [place] (Spiriva Respimat) 2 puff IH DAILY [facility] - Objective Vital Signs: Vital Signs Temperature 98.1 F 02/15/19 06:00 Pulse Rate 80 02/15/19 06:00 Respiratory Rate 20 02/15/19 06:00 Blood Pressure 175/85 H 02/15/19 06:00 O2 Sat by Pulse Oximetry (%) 93 L 02/14/19 21:00 Constitutional: Yes: No Distress, Calm Eyes: Yes: Conjunctiva Clear, EOM Intact Cardiovascular: Yes: Regular Rate and Rhythm. No: S3 Respiratory: Yes: Regular. No: Cough Gastrointestinal: Yes: Normal Bowel Sounds, Soft. No: Tenderness, Tenderness, Epigastrium Neurological: Yes: Alert, Oriented Psychiatric: Yes: Alert, Oriented Labs: CBC, BMP 02/15/19 06:00 02/15/19 05:46 INR, PTT INR 1.64 (0.83-1.09) H 02/11/19 17:30 Problem List - Problems (1) Cystic duct calculus Code(s): K80.20 - CALCULUS OF GALLBLADDER W/O CHOLECYSTITIS W/O OBSTRUCTION Assessment/Plan IMPRESSION: Pneumonia Sepsis Opiod dependence Positive HIDA scan Multiple medical problems PLAN: Given the fact that the patient has no pain, would continue regular diet Hold off on any intervention The patient can follow up in the clinic if his pain returns Otherwise, would recommend no surgical intervention at this time [facility] will sign off the case for now Please do not hesitate to call us back if the patient requires surgical follow up again this admission Thank you for allowing us to participate in the care of your patient
--- NOTE | 2019-02-15 13:41 | PN ---
Progress Note, Physician History of Present Illness: stable no new issues - Current Medication List Current Medications: Active Medications Alprazolam (Xanax -) 0.25 mg PO Q6H PRN PRN Reason: ANXIETY Last Admin: 02/14/19 21:59 Dose: 0.25 mg Aspirin (Asa -) 81 mg PO DAILY [facility] Last Admin: 02/15/19 10:37 Dose: 81 mg Budesonide/Formoterol Fumarate (Symbicort 160/4.5mcg -) 2 puff IH BID [facility] Diltiazem HCl (Cardizem Injection -) 10 mg IVPUSH Q4H PRN PRN Reason: TACHYCARDIA Enoxaparin Sodium (Lovenox -) 40 mg SQ DAILY [facility] Last Admin: 02/15/19 10:37 Dose: 40 mg Piperacillin Sod/Tazobactam (Sod 3.375 gm/ Dextrose) 50 mls @ 100 mls/hr IVPB Q8H-IV [facility]; Protocol Last Admin: 02/15/19 10:37 Dose: 100 mls/hr Levothyroxine Sodium (Synthroid -) 100 mcg PO DAILY@0700 [facility] Last Admin: 02/15/19 06:27 Dose: 100 mcg Methadone HCl (Dolophine -) 80 mg PO DAILY@0600 [facility] Last Admin: 02/15/19 06:27 Dose: 80 mg Metoprolol Succinate (Toprol Xl -) 25 mg PO BID [facility] Last Admin: 02/15/19 10:37 Dose: 25 mg Tiotropium [place] (Spiriva Respimat) 2 puff IH DAILY [facility] - Objective Vital Signs: Vital Signs Temperature 98.1 F 02/15/19 06:00 Pulse Rate 80 02/15/19 06:00 Respiratory Rate 20 02/15/19 06:00 Blood Pressure 175/85 H 02/15/19 06:00 O2 Sat by Pulse Oximetry (%) 93 L 02/14/19 21:00 Constitutional: Yes: No Distress, Calm Cardiovascular: Yes: S1, S2 Respiratory: Yes: Regular, CTA Bilaterally Gastrointestinal: Yes: Normal Bowel Sounds, Soft Musculoskeletal: Yes: WNL Extremities: Yes: WNL Neurological: Yes: Alert, Oriented Psychiatric: Yes: Alert, Oriented Labs: CBC, BMP 02/15/19 06:00 02/15/19 05:46 INR, PTT INR 1.64 (0.83-1.09) H 02/11/19 17:30 Assessment/Plan Problem List - Problems (1) COPD (chronic obstructive pulmonary disease) Code(s): J44.9 - CHRONIC OBSTRUCTIVE PULMONARY DISEASE, UNSPECIFIED (2) Demand ischemia Code(s): I24.8 - OTHER FORMS OF ACUTE ISCHEMIC HEART DISEASE (3) Hypothyroidism Code(s): E03.9 - HYPOTHYROIDISM, UNSPECIFIED (4) POTS (postural orthostatic tachycardia syndrome) Code(s): R00.0 - TACHYCARDIA, UNSPECIFIED; I95.1 - ORTHOSTATIC HYPOTENSION (5) Pneumonia Code(s): J18.9 - PNEUMONIA, UNSPECIFIED ORGANISM (6) Respiratory failure with hypercapnia Code(s): J96.92 - RESPIRATORY FAILURE, UNSPECIFIED WITH HYPERCAPNIA Qualifiers: Chronicity: unspecified Qualified Code(s): J96.92 - Respiratory failure, unspecified with hypercapnia leukocytosis plan sputum cx noted organism noted when patient ready to discharge can be switched to oral augmentin for another 10 days
--- NOTE | 2019-02-15 14:49 | PN.GI ---
GI Progress Note Subjective: No acute events No abdominal pain HIDA + Seen by surgery. Deferred surgery for now - Objective Vital Signs: Vital Signs Temperature 98.1 F 02/15/19 06:00 Pulse Rate 54 L 02/15/19 10:00 Respiratory Rate 18 02/15/19 10:00 Blood Pressure 176/98 H 02/15/19 10:00 O2 Sat by Pulse Oximetry (%) 90 L 02/15/19 09:00 Constitutional: Calm Eyes: No: Sclera Icterus Cardiovascular: Yes: Regular Rate and Rhythm Respiratory: Yes: CTA Bilaterally Gastrointestinal Inspection: Yes: Hernia (incisional hernia along surgical scar) . No: Distention ...Auscultate: Yes: Normoactive Bowel Sounds ...Palpate: No: Hepatomegaly, Splenomegaly, Tenderness ...Percussion: No: Tympanitic Edema: No (No LE edema) Neurological: Yes: Alert Labs: CBC, BMP 02/15/19 06:00 02/15/19 05:46 INR, PTT INR 1.64 (0.83-1.09) H 02/11/19 17:30 Problem List - Problems (1) Common bile duct dilatation Assessment/Plan: + HIDA: No abdominal pain and no obstruction noted on MRCP. Evaluated by surgery. deferred surgical intervention at this time If biliary pain develops, would advise reconsulting surgery and consider evaluation for percutaneous cholecystostomy Outpatient follow-up of dilated biliary tract. Mr. Green states that he has followed with Dr. Lopez in the past for colonoscopy. Could confirm this and arrange outpatient follow-up, otherwise can follow-up in office with me. Code(s): K83.8 - OTHER SPECIFIED DISEASES OF BILIARY TRACT
[2019-02-15] MEDS: ALPRAZolam 0.25 MG TABLET PO PRN ×2 (15:53→21:17)
[2019-02-15] MEDS ORDERED: PT OWN MED DRAWER 7, Y5N ONE (21:28)
[2019-02-15] MEDS: BUDESONIDE/FORMETEROL FUMARATE 160/4.5 mcg INHALER IH SCH (21:32)
[2019-02-16] MEDS ORDERED: PIPERACILLIN/TAZOBACTAM 3.375 GM VIAL IVPB ONE ×2 (01:26→10:48)
[2019-02-16] MEDS ORDERED: DEXTROSE 5%-WATER - 50 ML IVPB ONE ×2 (01:27→10:48)
[2019-02-16] MEDS: PIPERACILLIN/TAZOB 3.375 GM 3.375 GM in DEXTROSE 5%-WATER - 50 ML IVPB SCH ×2 (02:18→11:00)
[2019-02-16] MEDS: METHADONE HCL 40 MG DISPERSABLE TABLET PO SCH (06:08)
[2019-02-16] MEDS: LEVOTHYROXINE NA 100 MCG TABLET (FP) PO SCH (06:08)
[2019-02-16 06:44] LABS: HEMATOCRIT 42.5 % (35.4-49); HEMOGLOBIN 14.4 GM/dL (11.7-16.9); MCH 34.4 pg (25.7-33.7); MCHC 33.8 g/dl (32.0-35.9); MEAN CELL VOLUME 101.6 fl (80-96); PLATELET COUNT 244 K/MM3 (134-434); RBC 4.19 M/mm3 (4.00-5.60); RDW 14.1 % (11.9-15.9); WHITE BLOOD COUNT 8.7 K/mm3 (4.0-10.0)
[2019-02-16 06:53] LABS: INR 1.38 (0.83-1.09); PROTHROMBIN TIME (PATIENT) 16.3 SEC (9.7-13.0)
[2019-02-16 07:19] LABS: ALBUMIN 2.3 g/dl (3.4-5.0); BILIRUBIN,TOTAL 1.6 mg/dL (0.2-1); BLOOD UREA NITROGEN 10.5 mg/dL (7-18); CALCIUM 8.1 mg/dL (8.5-10.1); CREATININE 0.8 mg/dL (0.55-1.3); MAGNESIUM 1.9 mg/dL (1.8-2.4); POTASSIUM 3.8 mmol/L (3.5-5.1); TOT PROT 6.8 g/dl (6.4-8.2)
--- NOTE | 2019-02-16 09:35 | PN ---
Progress Note, Physician History of Present Illness: Denies chest pain, SOB or palpitations. No recurrence PSVT. + HIDA scan but no abd pain. - Current Medication List Current Medications: Active Medications Alprazolam (Xanax -) 0.25 mg PO Q6H PRN PRN Reason: ANXIETY Last Admin: 02/15/19 21:17 Dose: 0.25 mg Aspirin (Asa -) 81 mg PO DAILY [facility] Last Admin: 02/15/19 10:37 Dose: 81 mg Budesonide/Formoterol Fumarate (Symbicort 160/4.5mcg -) 2 puff IH BID [facility] Last Admin: 02/15/19 21:32 Dose: 2 puff Diltiazem HCl (Cardizem Injection -) 10 mg IVPUSH Q4H PRN PRN Reason: TACHYCARDIA Enoxaparin Sodium (Lovenox -) 40 mg SQ DAILY [facility] Last Admin: 02/15/19 10:37 Dose: 40 mg Piperacillin Sod/Tazobactam (Sod 3.375 gm/ Dextrose) 50 mls @ 100 mls/hr IVPB Q8H-IV [facility]; Protocol Last Admin: 02/16/19 02:18 Dose: 100 mls/hr Levothyroxine Sodium (Synthroid -) 100 mcg PO DAILY@0700 [facility] Last Admin: 02/16/19 06:08 Dose: 100 mcg Methadone HCl (Dolophine -) 80 mg PO DAILY@0600 [facility] Last Admin: 02/16/19 06:08 Dose: 80 mg Metoprolol Succinate (Toprol Xl -) 25 mg PO BID [facility] Last Admin: 02/15/19 21:17 Dose: [address] (Spiriva Respimat) 2 puff IH DAILY [facility] - Objective Vital Signs: Vital Signs Temperature 98.3 F 02/16/19 01:55 Pulse Rate 56 L 02/16/19 05:00 Respiratory Rate 20 02/16/19 05:00 Blood Pressure 191/81 H 02/16/19 05:00 O2 Sat by Pulse Oximetry (%) 95 02/15/19 21:00 Constitutional: Yes: No Distress, Calm Neck: Yes: Supple Cardiovascular: Yes: Regular Rate and Rhythm Respiratory: Yes: Regular, Diminished, On Nasal O2 Gastrointestinal: Yes: Normal Bowel Sounds, Soft Edema: No Labs: CBC, BMP 02/16/19 06:21 02/16/19 06:21 INR, PTT INR 1.38 (0.83-1.09) H 02/16/19 06:21 - ....Imaging EKG: Report Reviewed (Tele: NSR) Problem List - Problems (1) COPD (chronic obstructive pulmonary disease) Code(s): J44.9 - CHRONIC OBSTRUCTIVE PULMONARY DISEASE, UNSPECIFIED Qualifiers: COPD type: unspecified COPD Qualified Code(s): J44.9 - Chronic obstructive pulmonary disease, unspecified (2) Demand ischemia Code(s): I24.8 - OTHER FORMS OF ACUTE ISCHEMIC HEART DISEASE (3) Hypothyroidism Code(s): E03.9 - HYPOTHYROIDISM, UNSPECIFIED Qualifiers: Hypothyroidism type: unspecified Qualified Code(s): E03.9 - Hypothyroidism , unspecified (4) POTS (postural orthostatic tachycardia syndrome) Code(s): R00.0 - TACHYCARDIA, UNSPECIFIED; I95.1 - ORTHOSTATIC HYPOTENSION (5) Pneumonia Code(s): J18.9 - PNEUMONIA, UNSPECIFIED ORGANISM (6) Respiratory failure with hypercapnia Code(s): J96.92 - RESPIRATORY FAILURE, UNSPECIFIED WITH HYPERCAPNIA Qualifiers: Chronicity: unspecified Qualified Code(s): J96.92 - Respiratory failure, unspecified with hypercapnia (7) Common bile duct dilatation Code(s): K83.8 - OTHER SPECIFIED DISEASES OF BILIARY TRACT (8) Cystic duct calculus Code(s): K80.20 - CALCULUS OF GALLBLADDER W/O CHOLECYSTITIS W/O OBSTRUCTION Assessment/Plan 1. Acute respiratory failure with multilobar infiltrates suggest pneumonia 2. History of COPD with hypercapnea 3. Autonomic dysfunction (POTS) 4. Hypothyroidism 5. Opioid use currently on Methadone 6. Distended gallbladder with stones and slightly dilated CBD with near normal liver tests, MRCP negative, HIDA positive. 7. Elevated troponin due to demand ischemia 8. PSVT 9. Mild 10. Mild to moderate MR 11. Labile HTN BP not at goal PLAN: 1. Increase Metoprolol ER 50 mg BID as tolerated. Cardizem IV as needed 2. Empiric antibiotic coverage 3. Thyroid replacement therapy 4. Echocardiography was reviewed 5. Continue Methadone but close follow up of QTc 6. GI recommends no role for ERCP at this time. Timing of CCX versus cholecystostomy per surgical team.
[2019-02-16] MEDS ORDERED: TIOTROPIUM BROMIDE 2.5 MCG (SPIRIVA) RESPIMAT INHALER IH SCH (10:00)
--- NOTE | 2019-02-16 10:44 | PN ---
Progress Note, Physician History of Present Illness: pulmonary alert,comfortable,-resp distress.o2 sat 89-90 on ra - Current Medication List Current Medications: Active Medications Alprazolam (Xanax -) 0.25 mg PO Q6H PRN PRN Reason: ANXIETY Last Admin: 02/15/19 21:17 Dose: 0.25 mg Aspirin (Asa -) 81 mg PO DAILY [facility] Last Admin: 02/15/19 10:37 Dose: 81 mg Budesonide/Formoterol Fumarate (Symbicort 160/4.5mcg -) 2 puff IH BID [facility] Last Admin: 02/15/19 21:32 Dose: 2 puff Diltiazem HCl (Cardizem Injection -) 10 mg IVPUSH Q4H PRN PRN Reason: TACHYCARDIA Enoxaparin Sodium (Lovenox -) 40 mg SQ DAILY [facility] Last Admin: 02/15/19 10:37 Dose: 40 mg Piperacillin Sod/Tazobactam (Sod 3.375 gm/ Dextrose) 50 mls @ 100 mls/hr IVPB Q8H-IV [facility]; Protocol Last Admin: 02/16/19 02:18 Dose: 100 mls/hr Levothyroxine Sodium (Synthroid -) 100 mcg PO DAILY@0700 [facility] Last Admin: 02/16/19 06:08 Dose: 100 mcg Methadone HCl (Dolophine -) 80 mg PO DAILY@0600 [facility] Last Admin: 02/16/19 06:08 Dose: 80 mg Metoprolol Succinate (Toprol Xl -) 25 mg PO BID [facility] Last Admin: 02/15/19 21:17 Dose: 25 mg Tiotropium [place] (Spiriva Respimat) 2 puff IH DAILY [facility] - Objective Vital Signs: Vital Signs Temperature 98.3 F 02/16/19 01:55 Pulse Rate 56 L 02/16/19 05:00 Respiratory Rate 20 02/16/19 05:00 Blood Pressure 191/81 H 02/16/19 05:00 O2 Sat by Pulse Oximetry (%) 95 02/15/19 21:00 Constitutional: Yes: Well Nourished, Calm Eyes: Yes: WNL HENT: Yes: WNL Neck: Yes: WNL Cardiovascular: Yes: Regular Rate and Rhythm, S1, S2 Respiratory: Yes: Rales (scattered agustin crackles) Gastrointestinal: Yes: Normal Bowel Sounds, Soft Extremities: Yes: WNL Edema: Yes Labs: CBC, BMP 02/16/19 06:21 02/16/19 06:21 INR, PTT INR 1.38 (0.83-1.09) H 02/16/19 06:21 Assessment/Plan (1) COPD (chronic obstructive pulmonary disease) Code(s): J44.9 - CHRONIC OBSTRUCTIVE PULMONARY DISEASE, UNSPECIFIED (2) Demand ischemia Code(s): I24.8 - OTHER FORMS OF ACUTE ISCHEMIC HEART DISEASE (3) Hypothyroidism Code(s): E03.9 - HYPOTHYROIDISM, UNSPECIFIED (4) POTS (postural orthostatic tachycardia syndrome) Code(s): R00.0 - TACHYCARDIA, UNSPECIFIED; I95.1 - ORTHOSTATIC HYPOTENSION (5) Pneumonia Code(s): J18.9 - PNEUMONIA, UNSPECIFIED ORGANISM (6) Respiratory failure with hypercapnia Code(s): J96.92 - RESPIRATORY FAILURE, UNSPECIFIED WITH HYPERCAPNIA Qualifiers: Chronicity: unspecified Qualified Code(s): J96.92 - Respiratory failure, unspecified with hypercapnia BILATERAL PATCHY INFILTRATES SUPERIMPOSED UPON CHRONIC INTERSTITIAL LUNG CHANGES LIKELY DUE TO UNDERLYING COPD ACUTE ON CHRONIC HYPERCAPNEIC RESP FAILURE BASIS LIKELY SECONDARY TO METHADONE/ PNEUMONIA H/O SPLENECTOMY HEP C OPIATE ABUSE ISSUES O2 CONTINUE ANTIBIOTICS BRONCHODILATORS F/U CHEST CT OUTPATIENT AMBULATORY O2 SAT ON RA PFTS OUTPATIENT DR GUAN Problem List - Problems (1) COPD (chronic obstructive pulmonary disease) Code(s): J44.9 - CHRONIC OBSTRUCTIVE PULMONARY DISEASE, UNSPECIFIED (2) Demand ischemia Code(s): I24.8 - OTHER FORMS OF ACUTE ISCHEMIC HEART DISEASE (3) Hypothyroidism Code(s): E03.9 - HYPOTHYROIDISM, UNSPECIFIED (4) POTS (postural orthostatic tachycardia syndrome) Code(s): R00.0 - TACHYCARDIA, UNSPECIFIED; I95.1 - ORTHOSTATIC HYPOTENSION (5) Pneumonia Code(s): J18.9 - PNEUMONIA, UNSPECIFIED ORGANISM (6) Respiratory failure with hypercapnia Code(s): J96.92 - RESPIRATORY FAILURE, UNSPECIFIED WITH HYPERCAPNIA Qualifiers: Chronicity: unspecified Qualified Code(s): J96.92 - Respiratory failure, unspecified with hypercapnia
[2019-02-16] MEDS: BUDESONIDE/FORMETEROL FUMARATE 160/4.5 mcg INHALER IH SCH ×2 (10:59→11:01)
[2019-02-16] MEDS: ENOXAPARIN NA (PORCINE) 40 MG/0.4 ML DISP.SYRIN SQ SCH (11:00)
[2019-02-16] MEDS: ASPIRIN 81 MG CHEWABLE TABLETS PO SCH (11:00)
[2019-02-16] MEDS: metoPROLOL SUCCINATE 25 MG TAB.SR.24H (FP) PO SCH (11:00)
[2019-02-16] MEDS: ALPRAZolam 0.25 MG TABLET PO PRN (11:13)
--- NOTE | 2019-02-16 11:54 | PN ---
Progress Note, Physician History of Present Illness: stable no new issues - Current Medication List Current Medications: Active Medications Alprazolam (Xanax -) 0.25 mg PO Q6H PRN PRN Reason: ANXIETY Last Admin: 02/16/19 11:13 Dose: 0.25 mg Aspirin (Asa -) 81 mg PO DAILY [facility] Last Admin: 02/16/19 11:00 Dose: 81 mg Budesonide/Formoterol Fumarate (Symbicort 160/4.5mcg -) 2 puff IH BID [facility] Last Admin: 02/16/19 11:01 Dose: Not Given Diltiazem HCl (Cardizem Injection -) 10 mg IVPUSH Q4H PRN PRN Reason: TACHYCARDIA Enoxaparin Sodium (Lovenox -) 40 mg SQ DAILY [facility] Last Admin: 02/16/19 11:00 Dose: 40 mg Piperacillin Sod/Tazobactam (Sod 3.375 gm/ Dextrose) 50 mls @ 100 mls/hr IVPB Q8H-IV [facility]; Protocol Last Admin: 02/16/19 11:00 Dose: 100 mls/hr Levothyroxine Sodium (Synthroid -) 100 mcg PO DAILY@0700 [facility] Last Admin: 02/16/19 06:08 Dose: 100 mcg Methadone HCl (Dolophine -) 80 mg PO DAILY@0600 [facility] Last Admin: 02/16/19 06:08 Dose: 80 mg Metoprolol Succinate (Toprol Xl -) 25 mg PO BID [facility] Last Admin: 02/16/19 11:00 Dose: 25 mg Tiotropium [place] (Spiriva Respimat) 2 puff IH DAILY [facility] Last Admin: 02/16/19 11:00 Dose: Not Given - Objective Vital Signs: Vital Signs Temperature 98.3 F 02/16/19 01:55 Pulse Rate 86 02/16/19 11:06 Respiratory Rate 20 02/16/19 05:00 Blood Pressure 191/81 H 02/16/19 05:00 O2 Sat by Pulse Oximetry (%) 92 L 02/16/19 11:06 Constitutional: Yes: No Distress, Calm Cardiovascular: Yes: S1, S2 Respiratory: Yes: Regular, On Nasal O2 Gastrointestinal: Yes: Normal Bowel Sounds Musculoskeletal: Yes: WNL Extremities: Yes: WNL Neurological: Yes: Alert, Oriented Psychiatric: Yes: Alert, Oriented Labs: CBC, BMP 02/16/19 06:21 02/16/19 06:21 INR, PTT INR 1.38 (0.83-1.09) H 02/16/19 06:21 Assessment/Plan Problem List - Problems (1) COPD (chronic obstructive pulmonary disease) Code(s): J44.9 - CHRONIC OBSTRUCTIVE PULMONARY DISEASE, UNSPECIFIED (2) Demand ischemia Code(s): I24.8 - OTHER FORMS OF ACUTE ISCHEMIC HEART DISEASE (3) Hypothyroidism Code(s): E03.9 - HYPOTHYROIDISM, UNSPECIFIED (4) POTS (postural orthostatic tachycardia syndrome) Code(s): R00.0 - TACHYCARDIA, UNSPECIFIED; I95.1 - ORTHOSTATIC HYPOTENSION (5) Pneumonia Code(s): J18.9 - PNEUMONIA, UNSPECIFIED ORGANISM (6) Respiratory failure with hypercapnia Code(s): J96.92 - RESPIRATORY FAILURE, UNSPECIFIED WITH HYPERCAPNIA Qualifiers: Chronicity: unspecified Qualified Code(s): J96.92 - Respiratory failure, unspecified with hypercapnia leukocytosis plan sputum cx noted organism noted when patient ready to discharge can be switched to oral augmentin for another 10 days
--- NOTE | 2019-02-16 12:11 | PN.GI ---
GI Progress Note Subjective: No abdominal pain. - Objective Vital Signs: Vital Signs Temperature 98.3 F 02/16/19 01:55 Pulse Rate 86 02/16/19 11:06 Respiratory Rate 20 02/16/19 05:00 Blood Pressure 191/81 H 02/16/19 05:00 O2 Sat by Pulse Oximetry (%) 92 L 02/16/19 11:06 Constitutional: No Distress, Calm ...Auscultate: Yes: Normoactive Bowel Sounds ...Palpate: Yes: Soft. No: Hepatomegaly, Mass, Tenderness Labs: CBC, BMP 02/16/19 06:21 02/16/19 06:21 INR, PTT INR 1.38 (0.83-1.09) H 02/16/19 06:21 Assessment/Plan Distended GB with stones and slightly dilated CBD with near normal liver tests, MRCP negative, HIDA positive. No role for ERCP at this time. Timing of CCX versus cholecystostomy per surgical team.
[2019-02-16] MEDS ORDERED: metoPROLOL SUCCINATE 25 MG TAB.SR.24H (FP) PO ONE (13:00)
--- NOTE | 2019-02-16 13:51 | PN ---
Teaching Attending Note Name of Resident: Bridger Spencer ATTENDING PHYSICIAN STATEMENT I saw and evaluated the patient. I reviewed the resident's note and discussed the case with the resident. I agree with the resident's findings and plan as documented. SUBJECTIVE: No complaints. OBJECTIVE: Vital Signs Period Temp Pulse Resp BP Sys/Bashir Pulse Ox Last 24 Hr 97.3 F-98.3 F 56-98 20-20 159-191/81-98 92-95 HEART: S1S2, RRR LUNGS: Scattered bilateral crackles ABDOMEN: Soft, non-tender, non-distended, normal BS EXTREMITIES: Trace edema Laboratory Results - last 24 hr 02/16/19 02/16/19 02/16/19 06:21 06:21 06:21 WBC 8.7 RBC 4.19 Hgb 14.4 Hct 42.5 MCV 101.6 H MCH 34.4 H MCHC 33.8 RDW 14.1 Plt Count 244 MPV 10.0 PT with INR 16.30 H INR 1.38 H Sodium 136 Potassium 3.8 Chloride 100 Carbon Dioxide 32 Anion Gap 4 L BUN 10.5 Creatinine 0.8 Est GFR (CKD-EPI)AfAm 104.90 Est GFR (CKD-EPI)NonAf 90.51 Random Glucose 87 Calcium 8.1 L Magnesium 1.9 Total Bilirubin 1.6 H AST 38 H ALT 23 Alkaline Phosphatase 83 Total Protein 6.8 Albumin 2.3 L Current Medications Generic Name Dose Route Start Last Admin Trade Name Freq PRN Reason Stop Dose Admin Alprazolam 0.25 mg 02/12/19 12:53 02/16/19 11:13 Xanax - PO 0.25 mg Q6H PRN Administration ANXIETY Aspirin 81 mg 02/12/19 10:00 02/16/19 11:00 Asa - PO 81 mg DAILY [facility] Administration Budesonide/Formoterol Fumarate 2 puff 02/15/19 22:00 02/16/19 11:01 Symbicort 160/4.5mcg - IH Not Given BID [facility] Diltiazem HCl 10 mg 02/13/19 10:11 Cardizem Injection - IVPUSH Q4H PRN TACHYCARDIA Enoxaparin Sodium 40 mg 02/14/19 11:00 02/16/19 11:00 Lovenox - SQ 40 mg DAILY [facility] Administration Piperacillin Sod/Tazobactam 50 mls @ 100 mls/hr 02/13/19 12:00 02/16/19 11:00 Sod 3.375 gm/ Dextrose IVPB 100 mls/hr Q8H-IV [facility] Administration Protocol Levothyroxine Sodium 100 mcg 02/14/19 07:00 02/16/19 06:08 Synthroid - PO 100 mcg DAILY@0700 [facility] Administration Methadone HCl 80 mg 02/14/19 09:45 02/16/19 06:08 Dolophine - PO 80 mg DAILY@0600 [facility] Administration Metoprolol Succinate 50 mg 02/16/19 13:00 Toprol Xl - PO BID [facility] Tiotropium [place] 2 puff 02/16/19 10:00 02/16/19 11:00 Spiriva Respimat IH Not Given DAILY [facility] ASSESSMENT AND PLAN: This is a 68 year old man with a history of POTS, COPD, hypothyroidism, splenectomy, hepatitis C, opioid dependence who presented to the ED with cough, respiratory distress, and altered mental status. 1. Severe sepsis (tachycardia, tachypnea, leukocytosis, lactic acid 7.2) secondary to bilateral pneumonia - Afebrile; tachycardia, tachypnea, leukocytosis, lactic acidosis resolved - Blood cultures negative after 72 hours - Sputum culture growing Hemophilus - Continue Zosyn - change to Augmentin at discharge 2. Acute hypoxic and hypercapneic respiratory failure - Continue oxygen to maintain O2 saturation >90% - Continue DuoNeb, albuterol as needed 3. Demand ischemia - Echo shows normal LV, LVEF 60-65%, grade I diastolic dysfunction, normal RV , mild to moderate MR, mild TR, normal RVSP, mild , mild [place] 4. PSVT - Continue Toprol XL 5. Opioid dependence - Continue Methadone 6. Hypothyroidism - Continue Synthroid 7. COPD - Continue Symbicort, Spiriva 8. Hepatitis C 9. Dilated CBD on US - MRCP shows distended gallbladder with stones/sludge, mild dilatation of proximal intrahepatic ducts and CBD, no CBD stones - HIDA scan shows possible cystic duct obstruction/acute cholecystitis - surgery recommends no intervention at this time but if symptoms develop, he would need percutaneous cholecystostomy 10. Postural orthostatic tachycardia syndrome
[2019-02-16 14:53] VITALS: BP 132/69; PULSE 69; TEMP 97.5
== END 2019-02-16 16:15 | disposition home or self-care (01) | DRG 871 ==
LOC: JER 14:20 → JERBED 17:51 → J4W 18:34 → JERBED 19:30 → J4W 21:08
PROVIDERS: ADMIT Internal Medicine; ATTEND Internal Medicine
DX: A41.9 Sepsis, unspecified organism (principal); J96.02 Acute respiratory failure with hypercapnia; J18.1 Lobar pneumonia, unspecified organism; J96.01 Acute respiratory failure with hypoxia; R65.21 Severe sepsis with septic shock; G93.41 Metabolic encephalopathy; I24.8 Other forms of acute ischemic heart disease; I47.1 Supraventricular tachycardia; E87.2 Acidosis; I95.9 Hypotension, unspecified; J44.9 Chronic obstructive pulmonary disease, unspecified; F11.10 Opioid abuse, uncomplicated; D72.829 Elevated white blood cell count, unspecified; E03.9 Hypothyroidism, unspecified; I35.0 Nonrheumatic aortic (valve) stenosis; I34.0 Nonrheumatic mitral (valve) insufficiency; K83.8 Other specified diseases of biliary tract; F17.210 Nicotine dependence, cigarettes, uncomplicated; E87.6 Hypokalemia; E66.01 Morbid (severe) obesity due to excess calories; Z68.27 Body mass index [BMI] 27.0-27.9, adult; E88.09 Other disorders of plasma-protein metabolism, not elsewhere classified; D75.89 Other specified diseases of blood and blood-forming organs
CPT/HCPCS: 36415; 36600; 71045-TC-FY; 71250-TC; 74181-TC; 76705-TC; 78226-TC; 80048; 80053; 80074; 80307; 81003; 82140; 82248; 82550; 82607; 82746; 82803; 82962; 82977; 83036; 83605; 83735; 83880; 84100; 84134; 84439; 84443; 84480; 84484; 85025; 85027; 85610; 85651; 85730; 86140; 87040; 87070; 87077; 87086; 87184; 87205; 87529; 87804; 87807; 93005; 93010; 93306-TC; 93970-TC; 94640; 94660; 94761; 99285-25; A9537; J1644

== ENCOUNTER 2022-02-12 10:07 | Emergency (ER) | payer BC, OTHER ==
[2022-02-12 10:32] VITALS: BP 116/81; PULSE 97; RESP 18; TEMP 99.1; BMI 28.8
== END 2022-02-12 11:34 | disposition home or self-care (01) ==
LOC: FER 10:07
DX: R05.1 Acute cough (principal); J09.X2 Influenza due to identified novel influenza A virus with other respiratory manifestations
CPT/HCPCS: 0241U-QW; 99283-25

== ENCOUNTER 2023-12-04 04:25 | Day surgery (SDC) | payer BC ==
[2023-12-03 11:38] VITALS: BMI 31.7
[2023-12-04] MEDS ORDERED: MIDAZOLAM HCL 2 MG/2 ML SINGLE DOSE VIAL ONE (09:22)
[2023-12-04 09:59] VITALS: TEMP 98
[2023-12-04 10:25] VITALS: RESP 18
[2023-12-04 10:47] VITALS: BP 118/68; PULSE 83
== END 2023-12-04 11:15 | disposition home or self-care (01) ==
LOC: JASU-ENDO 04:25
PROVIDERS: ATTEND Student in an Organized Health Care Education/Training Program
PROC: 0DJD8ZZ Inspection of Lower Intestinal Tract, Via Natural or Artificial Opening Endoscopic (ICD-10-PCS; principal; 2023-12-04 09:00)
DX: Z12.11 Encounter for screening for malignant neoplasm of colon (principal); R19.5 Other fecal abnormalities; Z86.010 Personal history of colon polyps

== ENCOUNTER 2025-01-16 13:11 | Inpatient (IN) | payer BC, OTHER ==
[2025-01-16] MEDS ORDERED: PIPERACILLIN/TAZOB 3.375 GM 3.375 GM/50 ML BAG IVPB ONE (16:13)
[2025-01-16 16:22] LABS: MCHC 35.3 g/dl (32.3-36.5); MEAN CELL VOLUME 104.5 fl (79.0-92.2); RDW 17.5 % (12.2-16.6)
[2025-01-16] MEDS: PIPERACILLIN/TAZOB 3.375 GM 3.375 GM in DEXTROSE 5%-WATER - 50 ML IVPB ONE (16:27)
[2025-01-16] MEDS ORDERED: VANCOMYCIN 1 GM PREMIX (F) 1 GM/200 ML BAG ONE (16:28)
[2025-01-16] MEDS: VANCOMYCIN 1,000 MG in DEXTROSE 5%-WATER - 250 ML IVPB ONE (16:29)
[2025-01-16 18:42] LABS: GLUCOSE,RANDOM 102.0 mg/dL (74-106)
[2025-01-16 18:43] LABS: TOT PROT 7.4 g/dl (6.4-8.2)
[2025-01-16 18:44] LABS: CO2 31.0 mmol/L (21-32)
[2025-01-16 18:45] LABS: ALK PHOS 117.0 U/L (40-150)
[2025-01-16 18:48] LABS: CREATININE 1.51 mg/dL (0.55-1.3); SGOT/AST 65.0 U/L (5-34); SGPT/ALT 16.0 U/L (0-55)
[2025-01-16] MEDS: SODIUM CHLORIDE 1,000 ML IV SCH (21:59)
[2025-01-17] MEDS: PIPERACILLIN/TAZOB 4.5 GM 4.5 GM in DEXTROSE 5%-WATER 100 ML IVPB SCH ×2 (00:48→18:00)
[2025-01-17] MEDS: HEPARIN NA (PORCINE) 5,000 UNITS/ML 1ML VIAL SQ SCH (00:50)
[2025-01-17] MEDS: DOCUSATE SODIUM 100 MG CAPSULE (FP) PO SCH (00:50)
[2025-01-17] MEDS: LEVOTHYROXINE 112 MCG, LEVOTHYROXINE 25 MCG PO SCH (06:57)
[2025-01-17] MEDS ORDERED: LEVOTHYROXINE NA 100 MCG TABLET (FP) PO SCH (07:00)
[2025-01-17 07:20] LABS: ABSOLUTE IMMATURE GRANULOCYTES 0.56 x10^3/uL (0.0-0.031); BASOPHILS # 0.07 x10^3/uL (0.01-0.08); EOSINOPHIL % 0.2 % (0.8-7.0); EOSINOPHILS # 0.04 x10^3/uL (0.04-0.54); MCHC 33.9 g/dl (32.3-36.5); MEAN CELL VOLUME 102.5 fl (79.0-92.2); MEAN PLT VOLUME 12.3 fl (9.4-12.4); MONOCYTE # 1.62 x10^3/uL (0.30-0.82); MONOCYTE % 9.3 % (5.3-12.2); RDW 15.9 % (12.2-16.6)
[2025-01-17 07:29] LABS: INR 1.63 (0.83-1.09); PROTHROMBIN TIME (PATIENT) 17.9 SEC (9.7-13.0)
[2025-01-17 07:49] LABS: GLUCOSE,RANDOM 53.0 mg/dL (74-106); TOT PROT 7.3 g/dl (6.4-8.2)
[2025-01-17 07:50] LABS: CO2 29.0 mmol/L (21-32)
[2025-01-17 07:52] LABS: ALK PHOS 120.0 U/L (40-150)
[2025-01-17 07:55] LABS: CREATININE 1.5 mg/dL (0.55-1.3); SGOT/AST 105.0 U/L (5-34); SGPT/ALT 21.0 U/L (0-55)
[2025-01-17] MEDS ORDERED: PATIENT'S OWN MEDICATION (NON-FORMULARY) (Polyethylene Glycol 3350 119 GM Bottle) PO SCH (10:00)
[2025-01-17] MEDS: POLYETHYLENE GLYCOL (HEALTHYLAX) 3350 17 GM PACKET PO SCH (10:56)
[2025-01-17] MEDS: VANCOMYCIN/WATER FOR INJ (PEG) 1,000 MG/200 ML BAG IVPB SCH (14:58)
[2025-01-17] MEDS ORDERED: VANCOMYCIN PREMIX 1.5 GM 1,500 MG/300 ML BAG IVPB ONE (15:00)
[2025-01-17] MEDS: morphine CARPU-JECT 2 MG/1 ML DISP.SYRIN IVPUSH PRN (15:11)
[2025-01-17] MEDS: AMMONIUM LACTATE 12% LOTION 225 GM BOTTLE TP SCH (17:59)
[2025-01-18 06:41] LABS: URINE APPEARANCE CLEAR; URINE BILIRUBIN NEGATIVE (NEGATIVE); URINE COLOR YELLOW; URINE GLUCOSE (UA) NEGATIVE (NEGATIVE); URINE KETONE TRACE (NEGATIVE); URINE PROTEIN TRACE (NEGATIVE); URINE UROBILINOGEN 4.0 E.U/dl mg/dL (0.2-1.0)
[2025-01-18 06:42] LABS: URINE LEUK ESTERASE TRACE (NEGATIVE); URINE NITRITE NEGATIVE (NEGATIVE)
[2025-01-18 06:56] LABS: ABSOLUTE IMMATURE GRANULOCYTES 0.47 x10^3/uL (0.0-0.031); BASOPHILS # 0.06 x10^3/uL (0.01-0.08); EOSINOPHIL % 1.2 % (0.8-7.0); EOSINOPHILS # 0.21 x10^3/uL (0.04-0.54); MCHC 33.2 g/dl (32.3-36.5); MEAN CELL VOLUME 105.1 fl (79.0-92.2); MEAN PLT VOLUME 12.0 fl (9.4-12.4); MONOCYTE # 1.36 x10^3/uL (0.30-0.82); MONOCYTE % 7.7 % (5.3-12.2); RDW 17.2 % (12.2-16.6)
[2025-01-18 07:28] LABS: GLUCOSE,RANDOM 70.0 mg/dL (74-106)
[2025-01-18 07:29] LABS: TOT PROT 6.6 g/dl (6.4-8.2)
[2025-01-18 07:30] LABS: CO2 30.0 mmol/L (21-32)
[2025-01-18 07:31] LABS: ALK PHOS 100.0 U/L (40-150)
[2025-01-18 07:34] LABS: CREATININE 1.46 mg/dL (0.55-1.3); SGPT/ALT 26.0 U/L (0-55)
[2025-01-18 07:50] LABS: SGOT/AST 135.0 U/L (5-34)
[2025-01-18] MEDS: BACITRACIN ZINC 15 GM TUBE TOPICAL OINTMENT TP SCH (13:25)
[2025-01-18] MEDS: VANCOMYCIN HCL 1,500 MG in DEXTROSE 5%-WATER - 500 ML IVPB SCH (20:31)
[2025-01-18] MEDS: PIPERACILLIN/TAZOB 4.5 GM 4.5 GM in DEXTROSE 5%-WATER 100 ML IVPB SCH (20:32)
[2025-01-19 07:31] LABS: ABSOLUTE IMMATURE GRANULOCYTES 0.64 x10^3/uL (0.0-0.031); BASOPHILS # 0.09 x10^3/uL (0.01-0.08); EOSINOPHIL % 3.1 % (0.8-7.0); EOSINOPHILS # 0.50 x10^3/uL (0.04-0.54); MCHC 34.8 g/dl (32.3-36.5); MEAN CELL VOLUME 103.5 fl (79.0-92.2); MEAN PLT VOLUME 12.1 fl (9.4-12.4); MONOCYTE # 1.20 x10^3/uL (0.30-0.82); MONOCYTE % 7.5 % (5.3-12.2); RDW 18.3 % (12.2-16.6)
[2025-01-19 07:52] LABS: GLUCOSE,RANDOM 79.0 mg/dL (74-106); TOT PROT 6.7 g/dl (6.4-8.2)
[2025-01-19 07:53] LABS: CO2 31.0 mmol/L (21-32)
[2025-01-19 07:55] LABS: ALK PHOS 96.0 U/L (40-150)
[2025-01-19 07:57] LABS: CREATININE 1.32 mg/dL (0.55-1.3); SGOT/AST 139.0 U/L (5-34); SGPT/ALT 33.0 U/L (0-55)
[2025-01-19] MEDS: TAMSULOSIN HCL 0.4 MG CAP PO SCH (11:14)
[2025-01-19] MEDS: TORSEMIDE 20 MG TABLET (FP) PO SCH (12:49)
[2025-01-20 07:23] LABS: ABSOLUTE IMMATURE GRANULOCYTES 0.52 x10^3/uL (0.0-0.031); BASOPHILS # 0.09 x10^3/uL (0.01-0.08); EOSINOPHIL % 2.9 % (0.8-7.0); EOSINOPHILS # 0.43 x10^3/uL (0.04-0.54); MCHC 34.2 g/dl (32.3-36.5); MEAN CELL VOLUME 104.9 fl (79.0-92.2); MEAN PLT VOLUME 12.1 fl (9.4-12.4); MONOCYTE # 1.08 x10^3/uL (0.30-0.82); MONOCYTE % 7.3 % (5.3-12.2); RDW 18.0 % (12.2-16.6)
[2025-01-20 07:58] LABS: GLUCOSE,RANDOM 90.0 mg/dL (74-106); TOT PROT 6.8 g/dl (6.4-8.2)
[2025-01-20 07:59] LABS: CO2 28.0 mmol/L (21-32)
[2025-01-20 08:00] LABS: ALK PHOS 95.0 U/L (40-150)
[2025-01-20 08:03] LABS: SGOT/AST 126.0 U/L (5-34); SGPT/ALT 36.0 U/L (0-55)
[2025-01-20 08:04] LABS: CREATININE 1.43 mg/dL (0.55-1.3)
[2025-01-20] MEDS: MINERAL OIL/PET HY-PHL TOPICAL OINTMENT 454 GM JAR TP SCH (10:44)
[2025-01-21 07:18] LABS: ABSOLUTE IMMATURE GRANULOCYTES 0.44 x10^3/uL (0.0-0.031); BASOPHILS # 0.08 x10^3/uL (0.01-0.08); EOSINOPHIL % 2.3 % (0.8-7.0); EOSINOPHILS # 0.29 x10^3/uL (0.04-0.54); MCHC 34.6 g/dl (32.3-36.5); MEAN CELL VOLUME 104.6 fl (79.0-92.2); MEAN PLT VOLUME 11.9 fl (9.4-12.4); MONOCYTE # 0.78 x10^3/uL (0.30-0.82); MONOCYTE % 6.1 % (5.3-12.2); RDW 19.6 % (12.2-16.6)
[2025-01-21 07:55] LABS: GLUCOSE,RANDOM 88.0 mg/dL (74-106); TOT PROT 7.2 g/dl (6.4-8.2)
[2025-01-21 07:56] LABS: CO2 28.0 mmol/L (21-32)
[2025-01-21 07:58] LABS: ALK PHOS 95.0 U/L (40-150)
[2025-01-21 08:01] LABS: CREATININE 1.38 mg/dL (0.55-1.3); SGOT/AST 112.0 U/L (5-34); SGPT/ALT 40.0 U/L (0-55)
[2025-01-21] MEDS: POTASSIUM CHLORIDE ORAL LIQUID 20 MEQ/15 ML PO ONE (10:24)
[2025-01-21] MEDS: CALCIUM ACETATE/AL SULFATE TOP 1.9 GM/PACKET PACKET TP SCH (14:06)
[2025-01-22 07:44] LABS: ABSOLUTE IMMATURE GRANULOCYTES 0.21 x10^3/uL (0.0-0.031); BASOPHILS # 0.08 x10^3/uL (0.01-0.08); EOSINOPHIL % 3.6 % (0.8-7.0); EOSINOPHILS # 0.47 x10^3/uL (0.04-0.54); MCHC 33.1 g/dl (32.3-36.5); MEAN CELL VOLUME 108.0 fl (79.0-92.2); MEAN PLT VOLUME 12.1 fl (9.4-12.4); MONOCYTE # 0.98 x10^3/uL (0.30-0.82); MONOCYTE % 7.5 % (5.3-12.2); RDW 20.3 % (12.2-16.6)
[2025-01-22 08:19] LABS: GLUCOSE,RANDOM 73.0 mg/dL (74-106)
[2025-01-22 08:20] LABS: TOT PROT 6.1 g/dl (6.4-8.2)
[2025-01-22 08:21] LABS: CO2 26.0 mmol/L (21-32)
[2025-01-22 08:22] LABS: ALK PHOS 77.0 U/L (40-150)
[2025-01-22 08:25] LABS: CREATININE 1.31 mg/dL (0.55-1.3); SGOT/AST 88.0 U/L (5-34); SGPT/ALT 29.0 U/L (0-55)
[2025-01-22] MEDS: ACETAMINOPHEN 325 MG TABLET (FP) PO PRN (22:31)
[2025-01-23] MEDS: PANTOPRAZOLE SODIUM 40 MG VIAL IVPUSH SCH ×2 (02:35→11:45)
[2025-01-23 02:54] LABS: MCHC 34.7 g/dl (32.3-36.5); MEAN CELL VOLUME 105.9 fl (79.0-92.2); MEAN PLT VOLUME 11.5 fl (9.4-12.4); RDW 20.9 % (12.2-16.6)
[2025-01-23] MEDS ORDERED: ACETAMINOPHEN 325 MG TABLET (FP) PO PRN (06:19)
[2025-01-23] MEDS ORDERED: SODIUM CHLORIDE 1,000 ML IV STA (06:19)
[2025-01-23] MEDS ORDERED: LACTATED RINGERS SOLUTION 1000 ML INFUS.BAG IV ONE (06:19)
[2025-01-23] MEDS: LACTATED RINGERS SOLUTION 1,000 ML/1,000 ML INFUS.BAG IV STA ×2 (06:30→10:22)
[2025-01-23 07:30] LABS: MCHC 33.8 g/dl (32.3-36.5); MEAN CELL VOLUME 105.0 fl (79.0-92.2); MEAN PLT VOLUME 12.7 fl (9.4-12.4); RDW 20.9 % (12.2-16.6)
[2025-01-23] MEDS ORDERED: NOREPINEPHRINE BITARTRATE 4 MG/4 ML ML IV ONE ×2 (08:04→13:22)
[2025-01-23 08:07] LABS: INR 1.79 (0.83-1.09); PROTHROMBIN TIME (PATIENT) 19.5 SEC (9.7-13.0)
[2025-01-23 08:10] LABS: ACTIVATED PTT 41.9 SECONDS (25.2-36.5)
[2025-01-23] MEDS: NOREPINEPHRINE BITARTRATE 4,000 MCG in DEXTROSE 5%-WATER - 496 ML IV SCH (08:13)
[2025-01-23 08:26] LABS: GLUCOSE,RANDOM 137 mg/dL (74-106); TOT PROT 4.9 g/dl (6.4-8.2)
[2025-01-23 08:27] LABS: CO2 23 mmol/L (21-32)
[2025-01-23 08:28] LABS: ALK PHOS 57 U/L (40-150)
[2025-01-23 08:31] LABS: LACTIC ACID 4.4 mmol/L (0.4-2.0); SGPT/ALT 20 U/L (0-55)
[2025-01-23 08:32] LABS: CREATININE 1.33 mg/dL (0.55-1.3); SGOT/AST 65 U/L (5-34)
[2025-01-23] MEDS ORDERED: MUPIROCIN 2% TOPICAL OINTMENT FOR DECOLONIZATION NS SCH ×2 (10:00)
[2025-01-23 10:14] LABS: MCHC 32.5 g/dl (32.3-36.5); MEAN CELL VOLUME 100.0 fl (79.0-92.2); MEAN PLT VOLUME 12.3 fl (9.4-12.4); RDW 19.0 % (12.2-16.6)
[2025-01-23] MEDS: SODIUM CHLORIDE 1,000 ML IV SCH ×2 (10:22→16:42)
[2025-01-23] MEDS: PHYTONADIONE 10 MG/1 ML AMP IVPB ONE (10:28)
[2025-01-23] MEDS: POLYETHYLENE GLYCOL (HEALTHYLAX) 3350 17 GM PACKET PO SCH ×2 (11:12→16:38)
[2025-01-23] MEDS ORDERED: ONDANSETRON 4 MG/2 ML VIAL IVPB PRN (12:15)
[2025-01-23] MEDS: MINERAL OIL/PET HY-PHL TOPICAL OINTMENT 454 GM JAR TP SCH (12:34)
[2025-01-23] MEDS: TAMSULOSIN HCL 0.4 MG CAP PO SCH (12:35)
[2025-01-23] MEDS: LEVOTHYROXINE 112 MCG, LEVOTHYROXINE 25 MCG PO SCH (12:35)
[2025-01-23] MEDS: DOCUSATE SODIUM 100 MG CAPSULE (FP) PO SCH (12:35)
[2025-01-23] MEDS: PIPERACILLIN/TAZOB 4.5 GM 4.5 GM in DEXTROSE 5%-WATER 100 ML IVPB SCH (12:39)
[2025-01-23] MEDS: ONDANSETRON 4 MG/2 ML VIAL IVPUSH ONE (12:46)
[2025-01-23 14:17] LABS: MCHC 33.9 g/dl (32.3-36.5); MEAN CELL VOLUME 97.9 fl (79.0-92.2); MEAN PLT VOLUME 12.0 fl (9.4-12.4); RDW 18.6 % (12.2-16.6)
[2025-01-23 14:42] LABS: LACTIC ACID 8.4 mmol/L (0.4-2.0)
[2025-01-23] MEDS: SODIUM CHLORIDE 1,000 ML IV STA ×3 (15:06→19:31)
[2025-01-23] MEDS: AMMONIUM LACTATE 12% LOTION 225 GM BOTTLE TP SCH (16:39)
[2025-01-23] MEDS: CALCIUM ACETATE/AL SULFATE TOP 1.9 GM/PACKET PACKET TP SCH (16:41)
[2025-01-23] MEDS: BACITRACIN ZINC 15 GM TUBE TOPICAL OINTMENT TP SCH (16:42)
[2025-01-23 17:03] LABS: MEAN PLT VOLUME 11.7 fl (9.4-12.4)
[2025-01-23 17:05] LABS: IMMATURE PLATELET FRACTION # 14.40 x10^3/uL; MCHC 35.6 g/dl (32.3-36.5); MEAN CELL VOLUME 95.6 fl (79.0-92.2); RDW 19.2 % (12.2-16.6)
[2025-01-23] MEDS: LACTATED RINGERS SOLUTION 1000 ML INFUS.BAG IV ONE ×2 (19:31→19:45)
[2025-01-23 20:28] LABS: MCHC 35.7 g/dl (32.3-36.5); MEAN CELL VOLUME 93.8 fl (79.0-92.2); MEAN PLT VOLUME 12.7 fl (9.4-12.4); RDW 19.2 % (12.2-16.6)
[2025-01-23 20:37] LABS: INR 1.83 (0.83-1.09); PROTHROMBIN TIME (PATIENT) 20.0 SEC (9.7-13.0)
[2025-01-23 20:40] LABS: ACTIVATED PTT 36.3 SECONDS (25.2-36.5)
[2025-01-23 21:18] LABS: GLUCOSE,RANDOM 137 mg/dL (74-106); TOT PROT 4.1 g/dl (6.4-8.2)
[2025-01-23 21:19] LABS: CO2 22 mmol/L (21-32)
[2025-01-23 21:21] LABS: ALK PHOS 47 U/L (40-150)
[2025-01-23 21:23] LABS: LACTIC ACID 3.8 mmol/L (0.4-2.0); SGOT/AST 172 U/L (5-34); SGPT/ALT 47 U/L (0-55)
[2025-01-23 21:24] LABS: CREATININE 1.25 mg/dL (0.55-1.3)
[2025-01-23] MEDS ORDERED: CHLORHEXIDINE GLUCONATE 4% CLEANSER FOR DECOLONIZATION TP SCH ×2 (22:00)
[2025-01-23] MEDS: MAGNESIUM SULFATE IN WATER 2 GM/50 ML IVPB IVPB ONE (22:01)
[2025-01-23] MEDS: CALCIUM GLUC IN NACL, ISO-OSM 1 GM/50 ML BAG IVPB ONE ×2 (23:21→23:59)
[2025-01-24] MEDS: LACTATED RINGERS SOLUTION 1000 ML INFUS.BAG IV ONE (05:30)
[2025-01-24] MEDS: DEXMEDETOMIDINE PREMIX 400 MCG/100 ML BAG IVPB SCH (06:00)
[2025-01-24 06:09] LABS: INR 1.61 (0.83-1.09); PROTHROMBIN TIME (PATIENT) 17.6 SEC (9.7-13.0)
[2025-01-24 06:10] LABS: MCHC 35.4 g/dl (32.3-36.5); MEAN CELL VOLUME 91.7 fl (79.0-92.2); MEAN PLT VOLUME 12.2 fl (9.4-12.4); RDW 19.3 % (12.2-16.6)
[2025-01-24 06:12] LABS: ACTIVATED PTT 36.3 SECONDS (25.2-36.5)
[2025-01-24 06:21] LABS: GLUCOSE,RANDOM 73.0 mg/dL (74-106); TOT PROT 4.0 g/dl (6.4-8.2)
[2025-01-24 06:23] LABS: CO2 25.0 mmol/L (21-32)
[2025-01-24 06:24] LABS: ALK PHOS 56.0 U/L (40-150)
[2025-01-24 06:27] LABS: CREATININE 1.27 mg/dL (0.55-1.3); SGOT/AST 438.0 U/L (5-34); SGPT/ALT 135.0 U/L (0-55)
[2025-01-24 06:45] LABS: HEPATITIS B SURF AG NON-MATERN NON-REACTIVE (NONREACTIVE)
[2025-01-24 07:30] LABS: HCV DIAGNOSTIC IN-HOUSE W/RFLX REACTIVE (NONREACTIVE)
[2025-01-24] MEDS: DEXTROSE 5%-0.45% SALINE 1,000 ML IV SCH (08:14)
[2025-01-24] MEDS: NOREPINEPHRINE BITARTRATE/D5W 8 MG/250 ML BAG IVPB SCH (08:15)
[2025-01-24] MEDS: PANTOPRAZOLE 20 MG TABLET PO SCH (09:09)
[2025-01-24 13:18] LABS: MCHC 34.9 g/dl (32.3-36.5); MEAN CELL VOLUME 93.7 fl (79.0-92.2); MEAN PLT VOLUME 12.7 fl (9.4-12.4); RDW 19.8 % (12.2-16.6)
[2025-01-24] MEDS ORDERED: AMMONIUM LACTATE 12% LOTION 225 GM BOTTLE TP PRN (13:30)
[2025-01-24] MEDS: DEXTROSE 5%-NORMAL SALINE 1,000 ML IV SCH (14:45)
[2025-01-24 20:43] LABS: MCHC 35.0 g/dl (32.3-36.5); MEAN CELL VOLUME 92.5 fl (79.0-92.2); MEAN PLT VOLUME 12.7 fl (9.4-12.4); RDW 19.0 % (12.2-16.6)
[2025-01-24] MEDS: ACETAMINOPHEN 1000 MG/100 ML BAG IVPB ONE (22:05)
[2025-01-24] MEDS ORDERED: ACETAMINOPHEN INJECTION 100 ML ONE (22:06)
[2025-01-25 06:42] LABS: ABSOLUTE IMMATURE GRANULOCYTES 0.43 x10^3/uL (0.0-0.031); BASOPHILS # 0.09 x10^3/uL (0.01-0.08); EOSINOPHIL % 4.0 % (0.8-7.0); EOSINOPHILS # 0.79 x10^3/uL (0.04-0.54); MCHC 34.1 g/dl (32.3-36.5); MEAN CELL VOLUME 94.8 fl (79.0-92.2); MEAN PLT VOLUME 12.8 fl (9.4-12.4); MONOCYTE # 2.33 x10^3/uL (0.30-0.82); MONOCYTE % 11.8 % (5.3-12.2); RDW 20.6 % (12.2-16.6)
[2025-01-25 07:07] LABS: GLUCOSE,RANDOM 93 mg/dL (74-106)
[2025-01-25 07:08] LABS: TOT PROT 4.2 g/dl (6.4-8.2)
[2025-01-25 07:09] LABS: CO2 25 mmol/L (21-32)
[2025-01-25 07:11] LABS: ALK PHOS 66 U/L (40-150)
[2025-01-25 07:13] LABS: CREATININE 1.22 mg/dL (0.55-1.3); SGOT/AST 355 U/L (5-34); SGPT/ALT 130 U/L (0-55)
[2025-01-25] MEDS: SENNOSIDES 8.6MG TABLET (FP) PO SCH ×2 (09:54→15:49)
[2025-01-25 13:43] LABS: MCHC 33.9 g/dl (32.3-36.5); MEAN CELL VOLUME 95.3 fl (79.0-92.2); MEAN PLT VOLUME 12.3 fl (9.4-12.4); RDW 21.1 % (12.2-16.6)
[2025-01-25] MEDS ORDERED: SENNOSIDES 8.6MG TABLET (FP) PO SCH (14:27)
[2025-01-25 15:39] LABS: N-TERMINAL BNP 2278.4 pg/mL (0-299.9)
[2025-01-25] MEDS: FUROSEMIDE 40 MG/4 ML INJECTABLE VIAL IVPUSH ONE (15:48)
[2025-01-25] MEDS ORDERED: ONDANSETRON 4 MG/2 ML VIAL IVPB PRN (16:37)
[2025-01-25] MEDS ORDERED: AMMONIUM LACTATE 12% LOTION 225 GM BOTTLE TP PRN (16:37)
[2025-01-25] MEDS: PIPERACILLIN/TAZOB 4.5 GM 4.5 GM in DEXTROSE 5%-WATER 100 ML IVPB SCH (17:43)
[2025-01-25] MEDS: POLYETHYLENE GLYCOL (HEALTHYLAX) 3350 17 GM PACKET PO SCH (21:04)
[2025-01-25] MEDS: DOCUSATE SODIUM 100 MG CAPSULE (FP) PO SCH (21:04)
[2025-01-26] MEDS: LEVOTHYROXINE 112 MCG, LEVOTHYROXINE 25 MCG PO SCH (06:23)
[2025-01-26] MEDS: PANTOPRAZOLE 20 MG TABLET PO SCH (09:05)
[2025-01-26] MEDS: SPIRONOLACTONE 25 MG TABLET PO SCH (09:06)
[2025-01-26] MEDS: BACITRACIN ZINC 15 GM TUBE TOPICAL OINTMENT TP SCH (09:06)
[2025-01-26] MEDS: TAMSULOSIN HCL 0.4 MG CAP PO SCH (09:06)
[2025-01-26] MEDS ORDERED: LACTULOSE 20 GM/30 ML UDC (FOR ORAL USE ONLY) PO PRN (09:29)
[2025-01-26 10:51] LABS: ABSOLUTE IMMATURE GRANULOCYTES 0.20 x10^3/uL (0.0-0.031); BASOPHILS # 0.09 x10^3/uL (0.01-0.08); EOSINOPHIL % 3.4 % (0.8-7.0); EOSINOPHILS # 0.52 x10^3/uL (0.04-0.54); MCHC 32.7 g/dl (32.3-36.5); MEAN CELL VOLUME 98.8 fl (79.0-92.2); MEAN PLT VOLUME 12.0 fl (9.4-12.4); MONOCYTE # 1.82 x10^3/uL (0.30-0.82); MONOCYTE % 11.9 % (5.3-12.2); RDW 21.7 % (12.2-16.6)
[2025-01-26 11:03] LABS: INR 1.4 (0.83-1.09); PROTHROMBIN TIME (PATIENT) 15.4 SEC (9.7-13.0)
[2025-01-26 11:32] LABS: GLUCOSE,RANDOM 78.0 mg/dL (74-106); TOT PROT 4.9 g/dl (6.4-8.2)
[2025-01-26 11:33] LABS: CO2 26.0 mmol/L (21-32)
[2025-01-26 11:35] LABS: ALK PHOS 76.0 U/L (40-150)
[2025-01-26 11:37] LABS: SGOT/AST 212.0 U/L (5-34); SGPT/ALT 101.0 U/L (0-55)
[2025-01-26 11:38] LABS: CREATININE 1.19 mg/dL (0.55-1.3)
[2025-01-26] MEDS ORDERED: FENTANYL CITRATE/PF 50 MCG/ML VIAL ONE (12:08)
[2025-01-26] MEDS: SODIUM CHLORIDE 500 ML IV SCH (12:20)
[2025-01-26] MEDS: FENTANYL CITRATE/PF 50 MCG/ML VIAL IVPUSH ONE ×2 (12:35→12:38)
[2025-01-26 13:25] VITALS: BMI 34.8
[2025-01-26] MEDS: FUROSEMIDE 40 MG/4 ML INJECTABLE VIAL IVPUSH ONE (16:00)
[2025-01-26] MEDS: NAPH,MB-DB/K PH,MBDB POWDER PACKET PO ONE (17:09)
[2025-01-26] MEDS: LACTULOSE 20 GM/30 ML UDC (FOR ORAL USE ONLY) PO SCH (21:20)
[2025-01-27 06:25] VITALS: RESP 18
[2025-01-27 09:33] LABS: ABSOLUTE IMMATURE GRANULOCYTES 0.09 x10^3/uL (0.0-0.031); BASOPHILS # 0.11 x10^3/uL (0.01-0.08); EOSINOPHIL % 4.2 % (0.8-7.0); EOSINOPHILS # 0.50 x10^3/uL (0.04-0.54); MCHC 32.3 g/dl (32.3-36.5); MEAN CELL VOLUME 101.4 fl (79.0-92.2); MEAN PLT VOLUME 12.0 fl (9.4-12.4); MONOCYTE # 1.98 x10^3/uL (0.30-0.82); MONOCYTE % 16.5 % (5.3-12.2); RDW 23.4 % (12.2-16.6)
[2025-01-27 09:45] LABS: ALK PHOS 69.0 U/L (40-150); CO2 28.0 mmol/L (21-32); GLUCOSE,RANDOM 78.0 mg/dL (74-106); TOT PROT 4.6 g/dl (6.4-8.2)
[2025-01-27 09:48] LABS: CREATININE 1.25 mg/dL (0.55-1.3); SGOT/AST 132.0 U/L (5-34); SGPT/ALT 69.0 U/L (0-55)
[2025-01-27] MEDS ORDERED: TORSEMIDE 20 MG TABLET (FP) PO SCH (10:00)
[2025-01-27] MEDS: FUROSEMIDE 40 MG/4 ML INJECTABLE VIAL IVPUSH SCH ×2 (12:23→18:14)
[2025-01-27] MEDS ORDERED: FUROSEMIDE 40 MG/4 ML INJECTABLE VIAL IVPUSH SCH (14:00)
[2025-01-27 20:44] LABS: MCHC 33.5 g/dl (32.3-36.5); MEAN CELL VOLUME 97.7 fl (79.0-92.2); MEAN PLT VOLUME 11.3 fl (9.4-12.4); RDW 22.7 % (12.2-16.6)
[2025-01-28 08:14] LABS: MCHC 32.7 g/dl (32.3-36.5); MEAN CELL VOLUME 99.2 fl (79.0-92.2); MEAN PLT VOLUME 11.2 fl (9.4-12.4); RDW 24.4 % (12.2-16.6)
[2025-01-28 08:33] LABS: GLUCOSE,RANDOM 87.0 mg/dL (74-106)
[2025-01-28 08:34] LABS: TOT PROT 4.9 g/dl (6.4-8.2)
[2025-01-28 08:35] LABS: CO2 28.0 mmol/L (21-32)
[2025-01-28 08:36] LABS: ALK PHOS 75.0 U/L (40-150)
[2025-01-28 08:39] LABS: CREATININE 1.27 mg/dL (0.55-1.3); SGOT/AST 97.0 U/L (5-34); SGPT/ALT 58.0 U/L (0-55)
[2025-01-28] MEDS: POTASSIUM CHLORIDE TABS 20 MEQ TABLET.ER (FP) PO ONE ×2 (10:01→14:25)
[2025-01-29 09:16] LABS: MCHC 33.1 g/dl (32.3-36.5); MEAN CELL VOLUME 101.1 fl (79.0-92.2); MEAN PLT VOLUME 11.6 fl (9.4-12.4); RDW 24.2 % (12.2-16.6)
[2025-01-29 09:41] LABS: GLUCOSE,RANDOM 82.0 mg/dL (74-106); TOT PROT 5.1 g/dl (6.4-8.2)
[2025-01-29 09:43] LABS: CO2 29.0 mmol/L (21-32)
[2025-01-29 09:44] LABS: ALK PHOS 75.0 U/L (40-150)
[2025-01-29 09:47] LABS: CREATININE 1.25 mg/dL (0.55-1.3); SGOT/AST 74.0 U/L (5-34); SGPT/ALT 48.0 U/L (0-55)
[2025-01-30 10:20] LABS: MCHC 31.7 g/dl (32.3-36.5); MEAN CELL VOLUME 103.6 fl (79.0-92.2); MEAN PLT VOLUME 11.6 fl (9.4-12.4); RDW 23.7 % (12.2-16.6)
[2025-01-30 11:12] LABS: GLUCOSE,RANDOM 114.0 mg/dL (74-106); TOT PROT 5.4 g/dl (6.4-8.2)
[2025-01-30 11:13] LABS: CO2 28.0 mmol/L (21-32)
[2025-01-30 11:14] LABS: ALK PHOS 78.0 U/L (40-150)
[2025-01-30 11:17] LABS: CREATININE 1.2 mg/dL (0.55-1.3); SGOT/AST 59.0 U/L (5-34); SGPT/ALT 40.0 U/L (0-55)
[2025-01-30] MEDS ORDERED: PIPERACILLIN/TAZOBACTAM 4.5 GM VIAL IVPB ONE (11:32)
[2025-01-31] MEDS ORDERED: HYDROCORTISONE 0.5% TOPICAL CREAM 30 GM TUBE TP PRN (12:15)
[2025-01-31 13:42] VITALS: BP 105/51; PULSE 64; TEMP 98.4
== END 2025-01-31 15:17 | DRG 871 ==
LOC: JER 13:11 → JERBED 18:05 → J8W 01-17 00:36 → JICU 01-23 06:43 → J5S 01-25 16:54
PROVIDERS: ADMIT Hospitalist
PROC: 03HY32Z Insertion of Monitoring Device into Upper Artery, Percutaneous Approach (ICD-10-PCS; 2025-01-23)
PROC: 4A133B1 Monitoring of Arterial Pressure, Peripheral, Percutaneous Approach (ICD-10-PCS; 2025-01-23)
PROC: 4A133J1 Monitoring of Arterial Pulse, Peripheral, Percutaneous Approach (ICD-10-PCS; 2025-01-23)
PROC: 30233L1 Transfusion of Nonautologous Fresh Plasma into Peripheral Vein, Percutaneous Approach (ICD-10-PCS; 2025-01-23)
PROC: 30233N1 Transfusion of Nonautologous Red Blood Cells into Peripheral Vein, Percutaneous Approach (ICD-10-PCS; 2025-01-23)
PROC: 30233K1 Transfusion of Nonautologous Frozen Plasma into Peripheral Vein, Percutaneous Approach (ICD-10-PCS; 2025-01-23)
PROC: 0W3P8ZZ Control Bleeding in Gastrointestinal Tract, Via Natural or Artificial Opening Endoscopic (ICD-10-PCS; principal; 2025-01-23 11:00)
PROC: 02H633Z Insertion of Infusion Device into Right Atrium, Percutaneous Approach (ICD-10-PCS; 2025-01-24)
PROC: B548ZZA Ultrasonography of Superior Vena Cava, Guidance (ICD-10-PCS; 2025-01-24)
PROC: 0FB03ZX Excision of Liver, Percutaneous Approach, Diagnostic (ICD-10-PCS; 2025-01-25)
DX: A41.9 Sepsis, unspecified organism (principal); I50.31 Acute diastolic (congestive) heart failure; J18.9 Pneumonia, unspecified organism; R57.1 Hypovolemic shock; K63.81 Dieulafoy lesion of intestine; K72.00 Acute and subacute hepatic failure without coma; L03.116 Cellulitis of left lower limb; L03.115 Cellulitis of right lower limb; F11.20 Opioid dependence, uncomplicated; K92.2 Gastrointestinal hemorrhage, unspecified; E87.1 Hypo-osmolality and hyponatremia; D62 Acute posthemorrhagic anemia; J44.9 Chronic obstructive pulmonary disease, unspecified; I89.0 Lymphedema, not elsewhere classified; L85.3 Xerosis cutis; R33.9 Retention of urine, unspecified; K74.60 Unspecified cirrhosis of liver; N31.9 Neuromuscular dysfunction of bladder, unspecified; N40.0 Benign prostatic hyperplasia without lower urinary tract symptoms; D69.6 Thrombocytopenia, unspecified; K59.00 Constipation, unspecified; K76.9 Liver disease, unspecified; K76.0 Fatty (change of) liver, not elsewhere classified; E66.9 Obesity, unspecified; Z68.34 Body mass index [BMI] 34.0-34.9, adult; E06.3 Autoimmune thyroiditis
CPT/HCPCS: 36415; 36430; 47000; 71045-TC-FY; 73610-TC-RT-FY; 73700-TC-RT; 74018-TC-FY; 74170-TC; 74174-TC; 76775-TC; 76856-TC; 76870-TC; 77012-TC; 80053; 81003; 82105; 82248; 82550; 82962; 83010; 83605; 83615; 83735; 83880; 84100; 85025; 85027; 85384; 85610; 85651; 85730; 86704; 86803; 86850; 86900; 86901; 86922; 87040; 87070; 87205; 87340; 87517; 87522; 87637-QW; 93306-TC; 97116-GP; 97161-GP; 99285-25; G0480; J3490; P9017; P9038; P9058; Q9967